=== PATIENT | female | born 1940 | race Caucasian/White ===

== ENCOUNTER 2016-07-24 07:30 | Inpatient (IN) | payer MEDICARE ==
--- NOTE | 2016-07-17 13:49 | HP ---
HISTORY AND PHYSICAL: DATE OF ADMISSION: 07/24/16 ATTENDING PHYSICIAN: Dr. Forrester (DICTATED BY ANGELITO GRIMES) PROCEDURE: Right total knee arthroplasty. CHIEF COMPLAINT: Right knee pain. HISTORY OF PRESENT ILLNESS: Ms. Dozier is a 76-year-old female with complaints of right knee pain secondary to advanced osteoarthritis. She has failed conservative management and has elected to proceed with a right total knee arthroplasty which is scheduled for 07/24/[address] Forrester. PAST MEDICAL HISTORY: 1. Hypertension. 2. Diabetes. 3. High cholesterol. 4. Sleep apnea. 5. Hypothyroidism. 6. AFib. PAST SURGICAL HISTORY: 1. Cardiac ablation. 2. Hysterectomy. 3. Partial parathyroidectomy. 4. Cystocele repair. 5. Lumbar diskectomy. CURRENT MEDICATIONS: 1. Magnesium oxide. 2. Voltaren gel. 3. Metformin 500 mg twice a day. 4. Nitrostat 0.4 mg. 5. Metoprolol 50 mg. 6. Cymbalta 60 mg once a day. 7. Hydrochlorothiazide 12.5 mg once a day. 8. Lovastatin 20 mg q.h.s. 9. Levothyroxine 50 mcg once a day. 10. Prilosec 20 mg once a day. 11. Meloxicam 15 mg once a day. 12. Amlodipine 2.5 mg once a day. 13. Aspirin 81 mg once a day. ALLERGIES: MORPHINE. FAMILY HISTORY: Diabetes and dementia. SOCIAL HISTORY: She is a 76-year-old female. Her recently . She does not smoke, use drugs or alcohol. REVIEW OF SYSTEMS: A complete 14-point review of systems was reviewed with the patient and was positive for diabetes and thyroid disease. She denies any anesthesia problems, history of seizure, stroke or DVT. PHYSICAL EXAMINATION GENERAL: She is well developed, well nourished in no acute distress. VITAL SIGNS: She stands 5 feet 6 inches tall, weighs 230 pounds. Blood pressure 144/80, heart rate 66. HEENT: Normocephalic, atraumatic. NECK: Supple. No palpable lymph nodes. Trachea is midline. PULMONARY: Lungs are clear to auscultation bilaterally. CARDIO: Regular rate and rhythm. ABDOMEN: Soft, nontender, nondistended. NEUROLOGIC: Alert and oriented x3. Cranial nerves II through XII are intact. MUSCULOSKELETAL: Right lower extremity, the skin is intact. She has some tenderness over the medial lateral joint line. Full range of motion. 2+ dorsalis pedis pulses, intact sensation. Lower extremity muscle group strengths are intact at 5/5. ASSESSMENT AND PLAN: Ms. Dozier is a 76-year-old female with complaints of right knee pain secondary to advanced osteoarthritis. She has failed conservative management and has elected to proceed with a right total knee arthroplasty which is scheduled for 07/24/[address] Forrester discussed the risks and benefits of the surgery at today's visit and all of her questions were answered. Coumadin, Percocet and Colace were sent to her pharmacy for postoperative pain control and DVT prophylaxis. She will see Dr. Forrester back 2 weeks after the surgery. ANGELITO GRIMES [id number]/[facility] #: [id number] ANTELMO
[~2016-07-24 07:30] MED LIST: Buffered Lidocaine 0.9% SYRIN* 5 ML/SYR SYRINGE INTRADERM ONE; Famotidine IV* 10 MG/ML 2 ML (20 mg) IV ONE
[2016-07-24] MEDS ORDERED: Famotidine IV* 10 MG/ML 2 ML (20 mg) ONE (11:03)
[2016-07-24] MEDS ORDERED: ceFAZolin 2 GM PREMIX(*) 2 GM/50 ML BAG IVPB ONE (11:03)
[2016-07-24] MEDS ORDERED: Buffered Lidocaine 0.9% SYRIN* 5 ML/SYR SYRINGE ONE (11:03)
[2016-07-24] MEDS ORDERED: Lidocaine 2% PF * 5 ML VIAL ONE (11:19)
[2016-07-24] MEDS ORDERED: Morphine PF AMP (0.5MG/ML)* 5 MG/10 ML AMP ONE (11:19)
[2016-07-24] MEDS ORDERED: Dexamethasone IV* 4 MG/ML 1 ML (4 MG) ONE (11:19)
[2016-07-24] MEDS ORDERED: Ketorolac INJ* 30 MG/ML 1 ML VIAL ONE (11:19)
[2016-07-24] MEDS ORDERED: fentaNYL* 50 MCG/ML 2 ML VIAL (100 MCG VIAL) ONE (11:19)
[2016-07-24] MEDS ORDERED: Propofol* 10 MG/ML 20 ML BTL IV PUSH ONE (11:19)
[2016-07-24] MEDS ORDERED: Midazolam* 1 MG/ML 5 ML VIAL (5 MG) ONE (11:19)
[2016-07-24] MEDS ORDERED: Ondansetron INJ* 2 MG/ML VIAL ONE (11:19)
[2016-07-24] MEDS ORDERED: KETAMINE HCL* 50 MG/ML 10 ML VIAL ONE (11:19)
[2016-07-24] MEDS ORDERED: Lidocaine 1% INJ* 10 MG/ML 30 ML SDV ONE (13:47)
[2016-07-24] MEDS ORDERED: Labetalol IV* 5 MG/ML 20 ML VIAL ONE (14:56)
[2016-07-24] MEDS ORDERED: oxyCODONE TAB* 5 MG TAB PO PRN (15:20)
[2016-07-24] MEDS ORDERED: HYDROmorphone* 1 MG/ML 1 ML SYR IV PRN (15:20)
[2016-07-24] MEDS ORDERED: Acetaminophen TAB* 325 MG PO PRN ×2 (15:20→16:43)
[2016-07-24] MEDS ORDERED: DiMENhydriNATE IV* 50 MG/ML VIAL IV PUSH PRN (15:20)
[2016-07-24] MEDS ORDERED: Gabapentin CAP(*) 300 MG PO ONE (15:21)
[2016-07-24] MEDS ORDERED: Nalbuphine* 20 MG/ML 1 ML VIAL IV PRN (15:23)
[2016-07-24] MEDS ORDERED: Ondansetron INJ* 2 MG/ML VIAL IV PRN (15:23)
[2016-07-24] MEDS ORDERED: oxyCODONE/Acetamin 5/325 MG* TAB PO PRN (15:23)
[2016-07-24] MEDS ORDERED: Naloxone* 0.4 MG/ML 1 ML VIAL IV PRN (15:23)
[2016-07-24] MEDS ORDERED: Magnesium Hydroxide LIQ* 30 ML UDC PO PRN (16:43)
[2016-07-24] MEDS ORDERED: Polyethylene Glycol 3350* 17 GM PACKET PO PRN (16:43)
[2016-07-24] MEDS ORDERED: diPHENhydraMINE IV* 50 MG/ML 1 ml VIAL (BENADRYL) IV PRN (16:43)
[2016-07-24] MEDS ORDERED: Bisacodyl SUPP* 10 MG SUPP PR PRN (16:43)
[2016-07-24] MEDS ORDERED: Nitroglycerin TAB 0.4 MG* 0.4 MG TAB PO PRN (16:49)
--- NOTE | 2016-07-24 17:25 | RAD ---
INDICATION: Right total knee arthroplasty COMPARISON: June 19, 2016 TECHNIQUE: Portable AP and crosstable lateral views were obtained. FINDINGS: There is right knee arthroplasty. The prosthesis appears well seated. There is a surgical drain and there is a cooling jacket in place. IMPRESSION: POSTOPERATIVE RIGHT KNEE ARTHROPLASTY.
[2016-07-24] MEDS ORDERED: diPHENhydraMINE IV* 50 MG/ML 1 ml VIAL (BENADRYL) ONE (18:00)
[2016-07-24] MEDS ORDERED: Gabapentin CAP(*) 300 MG ONE (18:01)
[2016-07-24] MEDS ORDERED: Dextrose 50% Syringe 50 ML* 25 GM/50 ML SYRINGE IV PUSH PRN (18:44)
--- NOTE | 2016-07-24 19:39 | CONS ---
CC: Dr. Carmen Pressley; Dr. Forrester * MEDICAL CONSULTATION: DATE OF CONSULT: 07/24/16 PRIMARY CARE PROVIDER: Dr. Carmen Pressley. REQUESTING PROVIDER: Dr. Dayna Forrester. CONSULTING PROVIDER: ANGELITO Castorena. SUPERVISING PHYSICIAN: Dr. Rosalio Mccarthy. CHIEF COMPLAINT: Status post right total knee arthroplasty. HISTORY OF PRESENT ILLNESS: This is a 76-year-old female with a history of hypertension, diabetes, hyperlipidemia, obstructive sleep apnea, hypothyroidism , SVT, status post ablation, and stage 3 chronic kidney disease who presented for elective right total knee arthroplasty with Dr. Forrester today. Dr. Forrester has requested medical consultation for co-management postoperatively. The patient was seen by both her primary care provider as well as primary twist packer, Dr. Davis, preoperatively. The patient last had a cardiac catheterization in 2012, nuclear stress test in 2015, and underwent cardiac ablation for SVT in March 2016. Her cardiac catheterization and nuclear stress test were within normal limits. The patient had been complaining of episodes of dizziness with previously normal workup and then SVT was noted on Holter monitor. She has been asymptomatic since her ablation procedure approximately 4 months ago. The remainder of her medical problems appear to be well controlled. She is without any recent acute medical illness. The patient states that she has no pain at the moment when examined postoperatively. She is feeling a little lightheaded and mildly nauseated. No chest pain, shortness of breath, or abdominal pain. PAST MEDICAL HISTORY: 1. Hypertension. 2. Ych-cibujck-ubbtpmdmv diabetes - well controlled, requiring metformin only. Last hemoglobin A1c measured at 6.2%. 3. Hyperlipidemia. 4. Obstructive sleep apnea, compliant with CPAP use. 5. Hypothyroidism. 6. History of SVT, status post ablation, March 2016. 7. Stage 3 chronic kidney disease. SURGICAL HISTORY: 1. Cardiac ablation, March 2016. 2. Hysterectomy. 3. Partial parathyroidectomy. 4. Cystocele repair. 5. Lumbar diskectomy. HOME MEDICATIONS: 1. Aspirin 81 mg p.o. daily. 2. Cymbalta 60 mg p.o. daily. 3. Diclofenac gel 1% applied topically 3 times daily as needed. 4. Diltiazem 120 mg p.o. daily. 5. Hydrochlorothiazide 12.5 mg p.o. daily. 6. Levothyroxine 50 mcg p.o. daily. 7. Lovastatin 20 mg p.o. at bedtime. 8. Magnesium oxide 400 mg p.o. daily. 9. Meloxicam 15 mg p.o. daily. 10. Metoprolol tartrate 12.5 in the morning and 25 in the evening. 11. Multivitamin 1 tablet p.o. daily. 12. Nitroglycerin 0.4 mg 1 tablet p.o. sublingual as needed for chest pain. 13. Omeprazole 20 mg p.o. daily. 14. Metformin 500 mg p.o. twice daily. SOCIAL HISTORY: The patient lives alone. Her daughter is a nurse that works at the hospital. She denies any smoking history and occasional alcohol consumption. REVIEW OF SYSTEMS: As noted above in HPI and otherwise reviewed and negative. PHYSICAL EXAMINATION: Most recent vitals: Temperature 97 degrees Fahrenheit, pulse 56 beats per minute, respiratory rate 16, oxygen saturation 95% on room air, blood pressure 115/64 mmHg. General: This is a very pleasant elderly female who appears younger than her stated age and is accompanied by her daughter and evaluated in the postop recovery area and does not appear to be in any acute distress. HEENT: Head is normocephalic, atraumatic. Mucous membranes are mildly dry. Cardiovascular: Heart has a regular rate and rhythm without murmurs, rubs, or gallops. Respiratory: Lungs are clear to auscultation without wheezes, crackles, or rhonchi. Abdomen: Abdomen is soft and nontender to palpation. Extremities: Postop dressing in place over the right knee. SCDs in place. No significant edema appreciated. Psych: The patient is alert and appropriately oriented. LABORATORY DATA: Reviewed labs completed preoperatively on 07/17/16 which showed a normal CBC including a hemoglobin of 12.5 g/dL. Comprehensive metabolic panel was reviewed which is remarkable only for creatinine of 1.19 and estimated GFR of 43, mild elevation of her AST and ALT. IMAGING: Reviewed preoperative EKG which demonstrated a normal sinus rhythm. ASSESSMENT AND PLAN: This is a 76-year-old female with hypertension; well controlled vow-sfxkrdj-bkjxtrbzg diabetes; hyperlipidemia; obstructive sleep apnea; hypothyroidism; chronic kidney disease; and history of supraventricular tachycardia, status post ablation who underwent elective right total knee arthroplasty by Dr. Forrester earlier today who has requested medical co-management from the hospitalist team. 1. Status post right total knee arthroplasty, status post operative management per Orthopedics including DVT prophylaxis, pain management, and discharge planning. 2. Hypertension - the patient is normotensive postoperatively. I shall hold her hydrochlorothiazide to avoid acute kidney injury with fluid shift. Otherwise, continue her metoprolol. 3. Hyperlipidemia - continue her statin. 4. Tbc-iispvqd-nlbeuyelf diabetes - we will hold her metformin at this time. Can likely resume on postop day 2 or 3. We will check mealtime fingersticks and cover with sliding scale Humalog as needed. 5. Obstructive sleep apnea - the patient brought her CPAP with her which will be ordered for use. 6. Hypothyroidism - continue her current levothyroxine dose. 7. Stage 3 chronic kidney disease - we will monitor closely and avoid nephrotoxic agents, especially NSAIDs. 8. History of supraventricular tachycardia, status post cardiac ablation, March 2016 - the patient has been asymptomatic since her procedure and does not require a postoperative telemetry monitoring unless symptoms develop. 9. Code status - the patient is full code. 10. DVT prophylaxis is per Orthopedic Surgery. The patient has been ordered Coumadin to start this evening being bridged with Lovenox. 11. Healthcare proxy is the patient's daughter. 12. Disposition: Hospitalist group will continue to follow along. The patient does desire discharge to subacute rehab when medically and surgically appropriate. Further disposition is per Orthopedic Surgery. ANGELITO CASTORENA [id number]/[facility] #: [id number] ANTELMO
[2016-07-24] MEDS ORDERED: Warfarin TAB(*) 6 MG PO ONE (20:00)
[2016-07-24] MEDS: ceFAZolin VIAL(*) 1 GM in NS 0.9% 50 ML* 50 ML IVPB SCH (20:31)
[2016-07-24] MEDS: Ibuprofen TAB* 600 MG PO SCH (20:31)
[2016-07-24] MEDS: Atorvastatin* 10 MG TAB PO SCH (20:32)
[2016-07-24] MEDS: Docusate CAP* 100 MG PO SCH (20:32)
[2016-07-24] MEDS: Metoprolol Tartrate TAB* 25 MG PO SCH (20:47)
[2016-07-24] MEDS ORDERED: Gabapentin CAP(*) 100 MG PO ONE (22:00)
[2016-07-25] MEDS: ceFAZolin VIAL(*) 1 GM in NS 0.9% 50 ML* 50 ML IVPB SCH ×2 (03:33→11:47)
[2016-07-25] MEDS: Ibuprofen TAB* 600 MG PO SCH ×3 (03:33→14:38)
[2016-07-25] MEDS: Levothyroxine TAB* 50 MCG TAB PO SCH (05:56)
[2016-07-25] MEDS ORDERED: Ondansetron INJ* 2 MG/ML VIAL IV PRN (06:00)
[2016-07-25] MEDS ORDERED: Ondansetron TAB* 4 MG PO PRN (06:00)
[2016-07-25 06:49] LABS: Hematocrit 28 % (35-47); Hemoglobin 8.9 g/dl (12.0-16.0)
[2016-07-25 07:04] LABS: BUN/Creatinine Ratio 21.1 (8-20); Calcium 8.4 mg/dL (8.6-10.3); EGFR African American 62.4 (>60); EGFR Non-African American 48.5 (>60); Potassium 4.6 mmol/L (3.5-5.0)
[2016-07-25] MEDS: Docusate CAP* 100 MG PO SCH ×2 (08:11→20:28)
[2016-07-25] MEDS: Omeprazole CAP* 20 MG PO SCH (08:12)
[2016-07-25] MEDS: Insulin LISPRO* 1 UNITS UNIT SUBCUT SCH ×3 (08:12→17:20)
[2016-07-25] MEDS: Magnesium Oxide TAB* 400 MG PO SCH (08:12)
[2016-07-25] MEDS: Diltiazem CD CAP* 120 MG PO SCH (08:12)
[2016-07-25] MEDS: DULoxetine DR CAP* 30 MG CAP.DR PO SCH (08:12)
[2016-07-25] MEDS: Metoprolol Tartrate TAB* 25 MG PO SCH ×2 (08:20→17:19)
[2016-07-25] MEDS ORDERED: Hydrochlorothiazide TAB* 25 MG PO SCH (09:00)
--- NOTE | 2016-07-25 09:22 | OP ---
DATE OF OPERATION: 07/24/16 - ROOM #347 DATE OF : 36 SURGEON: Dayna Forrester MD CREAM HAULER: ANGELITO Ramirez. Ms. Fowler did help throughout the procedure with preparation of leg, wound retraction, manipulation of the knee, and wound closure. ANESTHESIOLOGIST: Dr. Jaramillo ANESTHESIA: Spinal with adductor nerve block. PRE-OP DIAGNOSIS: Severe end-stage osteoarthritis of the right knee joint. POST-OP DIAGNOSIS: Severe end-stage osteoarthritis of the right knee joint. OPERATIVE PROCEDURE: Right total knee arthroplasty. TOURNIQUET TIME: 53 minutes. EBL: 350 cc. COMPLICATIONS: None. SPECIMENS: Bone and cartilage from the right knee joint sent to pathology. HARDWARE USED: This is a cemented [employer] total knee hardware. Two packages of Simplex bone cement were used. For the femur, a size 5 narrow right femoral component, for the tibia a size 4 right tibial base plate. For the insert an 11 mm posterior stabilized size 3-4 articular insert, for the patella a 32 mm 3- peg all poly patella. BRIEF HISTORY/INDICATIONS: Ms. Dozier is a 76-year-old female with years of increasingly severe right knee pain. She failed conservative treatment with antiinflammatory pain medication, physical therapy, brace wear, and intraarticular injects. Due to continued pain and decreased quality of life she elected to undergo right total knee arthroplasty. Radiographs confirmed bone-bone arthritis. Informed consent was obtained from the patient. She understood the risks of the procedure included but were not limited to bleeding , infection, damage to nearby structures, continued pain, need for further surgery, intraoperative fracture, nerve palsy, hardware failure or loosening, knee stiffness, loss of motion, stroke, heart attack, blood clot, and . She wished to proceed. INTRAOPERATIVE FINDINGS: Intraoperatively, the patient had advanced degeneration of the cartilage in a tricompartmental fashion. She had a 15- degree flexion contracture to begin with and 120 degrees of flexion. Intraoperatively, we obtained full extension to 130 degrees of flexion. DESCRIPTION OF PROCEDURE: Ms. Dozier was identified in the preanesthesia unit. Her right lower extremity was marked as the correct operative side. Informed consent was signed and placed in the chart. The patient was taken to the operating room and placed under spinal anesthesia with an adductor nerve block. Gama catheter was placed. Tourniquet was placed on the right thigh. Right lower extremity was prepped and draped in the usual sterile fashion. Preop time-out was made to correctly identify the patient's side and site. Appropriate perioperative antibiotics were given within 1 hour of incision. Tourniquet time was 53 minutes. The tourniquet was inflated. A 14 cm midline incision was made with a 10 blade and carried down to the extensor mechanism. A new 10 blade was used to make a standard medial parapatellar arthrotomy. Patella was subluxed laterally. Electro-cautery was used to subperiosteally elevate soft tissue off the superomedial tibia to the mid sagittal plane. There was a significant amount of medial osteocytes and these were removed with a rongeur. The knee was flexed up. The anterior horn of the lateral meniscus and ACL were sharply released. A drill was used to enter the distal femur. Intramedullary distal femoral cutting guide was pinned into position. 9 mm of distal femur bone was carefully removed with an oscillating saw. The external rotation guide was pinned on the distal femur. The femur was sized to size 5. Size 5 multi-cutting jig was then pinned on the distal femur. Oscillating saw was used to make the appropriate chamfer cuts. Any bony fragments were carefully removed. PCL was completely released. The tibia was subluxed anteriorly. Extramedullary tibial cutting guide was pinned on the proximal tibia. Oscillating saw was used to make a proximal tibial cut perpendicular to the mechanical axis of the tibia. The bone was carefully removed. Knee was brought into full extension. There was some tightness medially. Electro- cautery was used for a conservative soft tissue release. Medial and lateral ligamentous balancing were now equal. Flexion and extension gaps were equal. The knee was flexed up. engineering manager was placed both medially and laterally. Any remaining meniscus was carefully removed using electrocautery. Curved osteotome was used to remove any posterior osteophytes. A size 5 right narrow femoral component trial was impacted on to the distal femur. This had excellent fit. The box for the posterior stabilized implant was prepared using a reamer and box cut osteotome. Size 4 tibial tray trial with a 9 mm insert trial were placed and the knee was taken through a range of motion. The knee had full extension to a 130 degrees of flexion with good patellofemoral tracking. Next, the patella was everted. A 9 mm of patellar bony cartilage was carefully removed using an oscillating saw. Patella was sized to a size 32. Three peg holes were drilled through the size 32 guide. 32 trial patella was placed. There was good patellofemoral tracking. All trials were carefully removed. Tibia was subluxed anteriorly and sized to a size 4. Proximal tibia was prepared using a size 4 keel punch. All bony cut surfaces were copiously irrigated with sterile saline and dried. Final implants were cemented into place starting with the tibia, followed by the femur and last the patella. A 11 mm insert trial was placed and the knee was brought out into full extension. The cement was allowed to fully cure. Tourniquet was turned down at 53 minutes. The knee was copiously irrigated with sterile saline. Once the cement was fully cured, the insert trial was removed. Any excess cement was checked and removed. Electrocautery was used to obtain meticulous hemostasis. Final implant chosen was a 11 mm posterior stabilized articular insert. This was locked into position on the tibial tray. Stability of the insert was checked and rechecked and noted to be stable. The knee was copiously irrigated with sterile saline. The extensor mechanism was closed over a medium Hemovac drain using interrupted #1 Vicryl. The rest of the incision was closed in a layered fashion using 0 and 2-0 Vicryl. Skin was closed using 3-0 nylon suture. A Xeroform, 4x4's, and Webril were used to cover the incision. Terrence wrap and cold pack were placed over this. The patient's anesthesia was reversed without difficulty and she was taken to the PACU in stable condition. Intended weightbearing will be weightbearing as tolerated. Intended DVT prophylaxis will be Coumadin with a Lovenox bridge. [id number]/[facility] #: [id number] [facility] SYSTEM[facility]ush
[2016-07-25] MEDS: oxyCODONE/Acetamin 5/325 MG* TAB PO PRN ×5 (09:27→23:52)
--- NOTE | 2016-07-25 09:55 | PN ---
Progress Note - Progress Note SOAP: Subjective: []Patient seen OOB in chair. Denies SOB, CP, or dizziness. Walked out to hallway 1st time OOB with PT this am. She lives alone, so she would like to be evaluated for PMRU rehab prior to return home. Objective: [] Vital Signs Temp 97.4 F 07/25/16 07:30 Pulse 51 07/25/16 07:30 Resp 16 07/25/16 09:27 BP 113/56 07/25/16 07:30 Pulse Ox 99 07/25/16 07:30 Intake & Output 07/24/16 07/25/16 07/25/16 18:59 06:59 18:59 Intake Total 2350 1860 1578 Output Total 800 1025 150 Balance 3845 505 6978 Weight 224 lb Intake: IV Fluids 2350 990 1018 LR 990 1018 NS 50ML, Cefazolin 2G 50 lr 2300 IVPB 110 ABX - CEFAZOLIN 110 Oral 870 450 Output: Gama 500 1025 150 Estimated Blood Loss 300 Laboratory Results - last 24 hr 07/24/16 07/25/16 07/25/16 11:20 06:31 06:31 Hgb 8.9 L Hct 28 L INR (Anticoag Therapy) 1.04 Sodium Potassium Chloride Carbon Dioxide Anion Gap BUN Creatinine Est GFR ( Amer) Est GFR (Non-Af Amer) BUN/Creatinine Ratio Glucose POC Glucose (mg/dL) 111 H Calcium 07/25/16 06:31 Hgb Hct INR (Anticoag Therapy) Sodium 133 Potassium 4.6 Chloride 101 Carbon Dioxide 27 Anion Gap 5 BUN 23 Creatinine 1.09 H Est GFR ( Amer) 62.4 Est GFR (Non-Af Amer) 48.5 BUN/Creatinine Ratio 21.1 H Glucose 138 H POC Glucose (mg/dL) Calcium 8.4 L Right knee drain was discontinued this am by Dr. Forrester, no complications. Dressing is dry and intact calf NT and soft +DF/PF right ankle sensation intact Assessment: []s/p Right total knee arthroplasty POD #1 Plan: []PT/OT WBAT RLE Coumadin with Lovenox bridge- 8mg today PMRU consult placed
[2016-07-25] MEDS: Enoxaparin(*) 40 MG/0.4 ML SYR SUBCUT SCH (13:04)
--- NOTE | 2016-07-25 14:43 | PN ---
Subjective Date of Service: 07/25/16 Interval History: This is a 76 yo female POD #1 s/p R TKA. She reports moderate pain, mild nausea. Eating and drinking well. Able to ambulate to the bathroom. No CP, SOB, abd pain. No vomiting. Objective Active Medications: Acetaminophen (Tylenol Tab*) 650 mg PO Q4H PRN PRN Reason: PAIN OR TEMPERATURE Atorvastatin Calcium (Lipitor*) 5 mg PO BEDTIME AHLLEY PRN Reason: Protocol Last Admin: 07/24/16 20:32 Dose: 5 mg Bisacodyl (Dulcolax Supp*) 10 mg ND DAILY PRN PRN Reason: constipation Dextrose (D50w Syringe 50 Ml*) 12.5 gm IV PUSH .FOR FS < 60 - SS PRN PRN Reason: FS < 60 Diltiazem HCl (Cardizem Cd Cap*) 120 mg PO QAM [facility] Last Admin: 07/25/16 08:12 Dose: 120 mg Diphenhydramine HCl (Benadryl Iv*) 12.5 mg IV Q6H PRN PRN Reason: PRURITIS Last Admin: 07/24/16 18:03 Dose: 12.5 mg Docusate Sodium (Colace Cap*) 100 mg PO BID [facility] Last Admin: 07/25/16 08:11 Dose: 100 mg Duloxetine HCl (Cymbalta Cap*) 60 mg PO QAM [facility] Last Admin: 07/25/16 08:12 Dose: 60 mg Enoxaparin Sodium (Lovenox(*)) 40 mg SUBCUT Q24H [facility] Last Admin: 07/25/16 13:04 Dose: 40 mg Hydromorphone HCl (Dilaudid Iv*) 1 mg IV SLOW PU Q4H PRN PRN Reason: PAIN Lactated Ringer's (Lactated Ringers 1000 Ml Bag*) 1,000 mls @ 100 mls/hr IV PER RATE [facility] Last Admin: 07/25/16 07:13 Dose: 100 mls/hr Insulin Human Lispro (Humalog*) 0 units SUBCUT AC [facility] PRN Reason: Protocol Last Admin: 07/25/16 13:03 Dose: 2 unit Lactulose (Lactulose*) 30 ml PO Q6H PRN PRN Reason: constipation Levothyroxine Sodium (Synthroid Tab*) 50 mcg PO 0600 [facility] Last Admin: 07/25/16 05:56 Dose: 50 mcg Magnesium Hydroxide (Milk Of Magnesia Liq*) 30 ml PO Q6H PRN PRN Reason: constipation Magnesium Oxide (Magox 400 Tab*) [address] [facility] Last Admin: 07/25/16 08:12 Dose: 400 mg Metoprolol Tartrate (Lopressor Tab*) 12.[address] [facility] Last Admin: 07/25/16 08:20 Dose: Not Given Metoprolol Tartrate (Lopressor Tab*) 25 mg PO QPM [facility] Last Admin: 07/24/16 20:47 Dose: 25 mg Nitroglycerin (Nitroglycerin Tab 0.4 Mg*) 0.4 mg PO Q5M PRN PRN Reason: PAIN - CHEST Omeprazole (Prilosec Cap*) [address] [facility] Last Admin: 07/25/16 08:12 Dose: 20 mg Ondansetron HCl (Zofran Inj*) 4 mg IV Q6H PRN PRN Reason: nausea Ondansetron HCl (Zofran Tab*) 4 mg PO Q6H PRN PRN Reason: NAUSEA Oxycodone HCl (Roxycodone Tab*) 10 mg PO Q4H PRN PRN Reason: SEVERE PAIN Oxycodone/Acetaminophen (Percocet 5/325 Tab*) 1 tab PO Q3H PRN PRN Reason: PAIN - MODERATE Last Admin: 07/25/16 09:27 Dose: 1 tab Oxycodone/Acetaminophen (Percocet 5/325 Tab*) 2 tab PO Q3H PRN PRN Reason: PAIN - MODERATE Last Admin: 07/25/16 13:02 Dose: 2 tab Polyethylene Glycol/Electrolytes (Miralax*) 17 gm PO DAILY PRN PRN Reason: Constipation Warfarin Sodium (Coumadin Tab(*)) 8 mg PO ONCE@1700 ONE PRN Reason: Protocol Stop: 07/25/16 17:01 Vital Signs: Temp Pulse Resp BP Pulse Ox 97.4 F 70 16 131/63 99 07/25/16 11:50 07/25/16 11:50 07/25/16 13:02 07/25/16 11:50 07/25/16 11:50 Appearance: Well appearing elderly female who appears younger than stated age in NAD Respiratory: Symmetrical Chest Expansion and Respiratory Effort, Clear to Auscultation Cardiovascular: NL Sounds; No Murmurs; No JVD, RRR Abdominal: NL Sounds; No Tenderness; No Distention Lymphatic: No Cervical Adenopathy Extremities: No Edema Skin: No Rash or Ulcers Result Diagrams: 07/25/16 06:31 07/25/16 06:31 Assess/Plan/Problems-Billing Assessment: This is a 76 yo female with HTN, DM, BRANDEE, HLD, hypothyroidism, CKD and SVT s/p ablation who is now s/p elective R TKA by Dr Forrester 07/25/16. Hospitalist group has been asked to consult for co-management. - Patient Problems (1) Status post total knee replacement Comment: POD #1 management per ortho (2) HTN (hypertension) Comment: Normotensive Cont metoprolol and diltiazem Resume HCTZ tomorrow am (3) BRANDEE (obstructive sleep apnea) Comment: Complaint with CPAP (4) CKD (chronic kidney disease), stage III Comment: Stable Avoid nephrotoxic agents (5) Diabetes Comment: Metformin held at this time Cover with SS Humalog HgbA1c 6.2% (6) HLD (hyperlipidemia) (7) Hypothyroidism Comment: Cont levothyroxine (8) Full code status (9) DVT prophylaxis Comment: Coumadin bridged with Lovenox per ortho Status and Disposition: Dispo per ortho. Patient desires [facility]. Hospitalist group will cont to follow
[2016-07-25] MEDS ORDERED: Warfarin TAB(*) 4 MG PO ONE (17:00)
[2016-07-25] MEDS: Atorvastatin* 10 MG TAB PO SCH (20:28)
[2016-07-25] MEDS: HYDROmorphone* 1 MG/ML 1 ML SYR IV SLOW PU PRN (22:54)
[2016-07-26] MEDS: oxyCODONE TAB* 5 MG TAB PO PRN ×2 (03:08→08:55)
[2016-07-26] MEDS: Levothyroxine TAB* 50 MCG TAB PO SCH (05:49)
[2016-07-26] MEDS: oxyCODONE/Acetamin 5/325 MG* TAB PO PRN ×3 (05:50→20:42)
[2016-07-26 06:06] LABS: Hematocrit 27 % (35-47); Hemoglobin 8.7 g/dl (12.0-16.0)
[2016-07-26] MEDS: Insulin LISPRO* 1 UNITS UNIT SUBCUT SCH ×3 (08:07→17:55)
[2016-07-26] MEDS: Diltiazem CD CAP* 120 MG PO SCH (08:09)
[2016-07-26] MEDS: DULoxetine DR CAP* 30 MG CAP.DR PO SCH (08:10)
[2016-07-26] MEDS: Docusate CAP* 100 MG PO SCH ×2 (08:10→20:41)
[2016-07-26] MEDS: Omeprazole CAP* 20 MG PO SCH (08:10)
[2016-07-26] MEDS: Magnesium Oxide TAB* 400 MG PO SCH (08:11)
[2016-07-26] MEDS: Hydrochlorothiazide TAB* 25 MG PO SCH (08:11)
[2016-07-26] MEDS: Metoprolol Tartrate TAB* 25 MG PO SCH ×2 (08:11→17:55)
--- NOTE | 2016-07-26 09:36 | PN ---
Progress Note - Progress Note SOAP: Subjective: []Patient seen OOB in chair. Having quite a bit of knee pain and feels nauseated because of that. She is unsure if she will be able to go home tomorrow with her daughter's help or if she will need SNF rehab. Objective: [] Vital Signs Temp 97.7 F 07/26/16 07:39 Pulse 71 07/26/16 07:39 Resp 20 07/26/16 08:55 BP 159/71 07/26/16 07:39 Pulse Ox 100 07/26/16 08:00 Intake & Output 07/25/16 07/26/16 07/26/16 18:59 06:59 18:59 Intake Total 4737 1400 240 Output Total 1450 1300 100 Balance 3287 100 140 Intake: IV Fluids 1470 LR 1470 IVPB 165 ABX - CEFAZOLIN 165 Oral 3102 1400 240 Output: Urine 1300 1300 100 Gama 150 Other: Estimated Void Medium # Bowel Movements 0 0 # Voids 1 Laboratory Results - last 24 hr 07/25/16 07/25/16 07/26/16 11:45 16:46 05:35 Hgb 8.7 L Hct 27 L INR (Anticoag Therapy) POC Glucose (mg/dL) 158 H 144 H 07/26/16 07/26/16 05:35 07:21 Hgb Hct INR (Anticoag Therapy) 1.40 H POC Glucose (mg/dL) 150 H Right knee dressing changed this am by Dr. Forrester and reported to be benign calf non tender and soft +DF/PF right ankle Assessment: []s/p Right total knee arthroplasty POD #2 Plan: []PT/OT WBAT Zofran given with pain medications Coumadin with Lovenox bridge- 6 mg today Home vs SNF rehab when goals met and medically stable
[2016-07-26] MEDS: Enoxaparin(*) 40 MG/0.4 ML SYR SUBCUT SCH (12:23)
[2016-07-26] MEDS: HYDROmorphone* 1 MG/ML 1 ML SYR IV SLOW PU PRN (15:17)
--- NOTE | 2016-07-26 16:34 | PN ---
Subjective Date of Service: 07/26/16 Interval History: Patient is struggling with pain control and associated nausea today. Denies CP , SOB, abd pain. Objective Active Medications: Acetaminophen (Tylenol Tab*) 650 mg PO Q4H PRN PRN Reason: PAIN OR TEMPERATURE Atorvastatin Calcium (Lipitor*) 5 mg PO BEDTIME HALLEY PRN Reason: Protocol Last Admin: 07/25/16 20:28 Dose: 5 mg Bisacodyl (Dulcolax Supp*) 10 mg WA DAILY PRN PRN Reason: constipation Dextrose (D50w Syringe 50 Ml*) 12.5 gm IV PUSH .FOR FS < 60 - SS PRN PRN Reason: FS < 60 Diltiazem HCl (Cardizem Cd Cap*) 120 mg PO QAM [facility] Last Admin: 07/26/16 08:09 Dose: 120 mg Diphenhydramine HCl (Benadryl Iv*) 12.5 mg IV Q6H PRN PRN Reason: PRURITIS Last Admin: 07/24/16 18:03 Dose: 12.5 mg Docusate Sodium (Colace Cap*) 100 mg PO BID [facility] Last Admin: 07/26/16 08:10 Dose: 100 mg Duloxetine HCl (Cymbalta Cap*) 60 mg PO QAM [facility] Last Admin: 07/26/16 08:10 Dose: 60 mg Enoxaparin Sodium (Lovenox(*)) 40 mg SUBCUT Q24H [facility] Last Admin: 07/26/16 12:23 Dose: 40 mg Hydrochlorothiazide (Hydrodiuril Tab*) 12.5 mg PO DAILY [facility] Last Admin: 07/26/16 08:11 Dose: 12.5 mg Hydromorphone HCl (Dilaudid Iv*) 1 mg IV SLOW PU Q4H PRN PRN Reason: PAIN Last Admin: 07/26/16 15:17 Dose: 1 mg Lactated Ringer's (Lactated Ringers 1000 Ml Bag*) 1,000 mls @ 100 mls/hr IV PER RATE [facility] Last Admin: 07/25/16 07:13 Dose: 100 mls/hr Insulin Human Lispro (Humalog*) 0 units SUBCUT AC [facility] PRN Reason: Protocol Last Admin: 07/26/16 12:22 Dose: 2 unit Lactulose (Lactulose*) 30 ml PO Q6H PRN PRN Reason: constipation Levothyroxine Sodium (Synthroid Tab*) 50 mcg PO 0600 [facility] Last Admin: 07/26/16 05:49 Dose: 50 mcg Magnesium Hydroxide (Milk Of Magnesia Liq*) 30 ml PO Q6H PRN PRN Reason: constipation Last Admin: 07/26/16 08:10 Dose: 30 ml Magnesium Oxide (Magox 400 Tab*) 400 mg PO [facility] Last Admin: 07/26/16 08:11 Dose: 400 mg Metoprolol Tartrate (Lopressor Tab*) [facility] [place] Admin: 07/26/16 08:11 Dose: 12.5 mg Metoprolol Tartrate (Lopressor Tab*) 25 mg PO QPM [facility] Last Admin: 07/25/16 17:19 Dose: 25 mg Nitroglycerin (Nitroglycerin Tab 0.4 Mg*) 0.4 mg PO Q5M PRN PRN Reason: PAIN - CHEST Omeprazole (Prilosec Cap*) 20 mg PO [facility] Last Admin: 07/26/16 08:10 Dose: 20 mg Ondansetron HCl (Zofran Inj*) 4 mg IV Q6H PRN PRN Reason: nausea Last Admin: 07/26/16 08:59 Dose: 4 mg Ondansetron HCl (Zofran Tab*) 4 mg PO Q6H PRN PRN Reason: NAUSEA Oxycodone HCl (Roxycodone Tab*) 10 mg PO Q4H PRN PRN Reason: SEVERE PAIN Last Admin: 07/26/16 08:55 Dose: 10 mg Oxycodone/Acetaminophen (Percocet 5/325 Tab*) 1 tab PO Q3H PRN PRN Reason: PAIN - MODERATE Last Admin: 07/25/16 09:27 Dose: 1 tab Oxycodone/Acetaminophen (Percocet 5/325 Tab*) 2 tab PO Q3H PRN PRN Reason: PAIN - MODERATE Last Admin: 07/26/16 12:05 Dose: 2 tab Pharmacy Profile Note (Coumadin Daily Reminder*) 1 note FOLLOW UP 1700 [facility] Last Admin: 07/25/16 17:22 Dose: 1 note Polyethylene Glycol/Electrolytes (Miralax*) 17 gm PO DAILY PRN PRN Reason: Constipation Warfarin Sodium (Coumadin Tab(*)) 6 mg PO ONCE@1700 ONE PRN Reason: Protocol Stop: 07/26/16 17:01 Vital Signs: Temp Pulse Resp BP Pulse Ox 97.9 F 66 14 158/72 94 07/26/16 15:55 07/26/16 15:55 07/26/16 15:55 07/26/16 15:55 07/26/16 15:55 Appearance: Fatigued appearing elderly female in NAD, accompanied by her daughter Respiratory: Symmetrical Chest Expansion and Respiratory Effort, Clear to Auscultation Cardiovascular: NL Sounds; No Murmurs; No JVD, RRR Abdominal: NL Sounds; No Tenderness; No Distention Extremities: No Edema Skin: No Rash or Ulcers Neurological: Alert and Oriented x 3 Result Diagrams: 07/26/16 05:35 07/25/16 06:31 Assess/Plan/Problems-Billing Assessment: This is a 76 yo female with HTN, DM, BRANDEE, HLD, hypothyroidism, CKD and SVT s/p ablation who is now s/p elective R TKA by Dr Forrester 07/25/16. Hospitalist group has been asked to consult for co-management. - Patient Problems (1) Status post total knee replacement Comment: POD #2 management per ortho (2) HTN (hypertension) Comment: Normotensive Cont metoprolol, diltiazem, HCTZ (3) BRANDEE (obstructive sleep apnea) Comment: Complaint with CPAP (4) CKD (chronic kidney disease), stage III Comment: Stable Avoid nephrotoxic agents (5) Diabetes Comment: Metformin held at this time Cover with SS Humalog HgbA1c 6.2% (6) HLD (hyperlipidemia) (7) Hypothyroidism Comment: Cont levothyroxine (8) Full code status (9) DVT prophylaxis Comment: Coumadin bridged with Lovenox per ortho Status and Disposition: Dispo per ortho. Patient desires [facility]. Hospitalist group will cont to follow
[2016-07-26] MEDS ORDERED: Warfarin TAB(*) 6 MG PO ONE (17:00)
[2016-07-26] MEDS: Atorvastatin* 10 MG TAB PO SCH (20:41)
[2016-07-27] MEDS: oxyCODONE/Acetamin 5/325 MG* TAB PO PRN ×4 (00:26→11:57)
[2016-07-27] MEDS: Levothyroxine TAB* 50 MCG TAB PO SCH (05:10)
[2016-07-27 06:53] LABS: Hematocrit 28 % (35-47); Hemoglobin 8.8 g/dl (12.0-16.0)
--- NOTE | 2016-07-27 07:39 | PN ---
Progress Note - Progress Note SOAP: Subjective: Pt. is alert, nad. Plan to go to SNF today. Objective: RLE - dressing c/d/i. distally min edema, nvi. Vital Signs: Temp Pulse Resp BP Pulse Ox 98.0 F 68 16 129/67 97 07/27/16 03:38 07/27/16 03:38 07/27/16 05:03 07/27/16 03:38 07/27/16 03:38 Laboratory Results - last 24 hr 07/26/16 07/26/16 07/27/16 12:11 17:03 06:28 Hgb 8.8 L Hct 28 L INR (Anticoag Therapy) POC Glucose (mg/dL) 157 H 151 H 07/27/16 06:28 Hgb Hct INR (Anticoag Therapy) 2.57 H POC Glucose (mg/dL) Assessment: 76 yo F pod 3 s/p RTKA Plan: wbat rle pt/ot d/c lovenox hold coumadin tonight and recheck inr tomorrow plan d/c to snf today.
[2016-07-27] MEDS: Insulin LISPRO* 1 UNITS UNIT SUBCUT SCH ×2 (08:36→11:58)
[2016-07-27] MEDS: Omeprazole CAP* 20 MG PO SCH (08:38)
[2016-07-27] MEDS: Docusate CAP* 100 MG PO SCH (08:38)
[2016-07-27] MEDS: Metoprolol Tartrate TAB* 25 MG PO SCH (08:38)
[2016-07-27] MEDS: Hydrochlorothiazide TAB* 25 MG PO SCH (08:39)
[2016-07-27] MEDS: Diltiazem CD CAP* 120 MG PO SCH (08:39)
[2016-07-27] MEDS: DULoxetine DR CAP* 30 MG CAP.DR PO SCH (08:39)
[2016-07-27] MEDS: Magnesium Oxide TAB* 400 MG PO SCH (08:40)
--- NOTE | 2016-07-27 11:44 | DS ---
CC: [facility]* DATE OF ADMISSION: 07/24/2016. DATE OF DISCHARGE: 07/27/2016. ATTENDING PHYSICIAN: Dr. Dayna Forrester. ADMISSION DIAGNOSIS: Severe end-stage osteoarthritis right knee joint. DISCHARGE DIAGNOSIS: Severe end-stage osteoarthritis right knee joint. SURGERY PERFORMED: Right total knee arthroplasty. HOSPITAL COURSE: The patient is a 76-year-old female with increasingly right severe knee pain. She failed conservative management with anti-inflammatory pain medications, physical therapy, brace wear, interarticular injections. Due to the fact she continued to have decreased quality of life and increased pain, she elected to proceed with the aforementioned procedure and was taken to the operating room under the care of Dr. Dayna Forrester on the date of 07/24/2016. She tolerated the procedure well and left the operating room in stable condition. Postoperative day number two, she had difficulty managing her pain, but by postoperative day three, she was improved. She did progress satisfactorily, albeit slowly with her physical therapy and occupational therapy goals. Due to the fact that she lives alone, she felt it would be safer for her to be discharged to a long term facility for additional rehabilitation prior to returning independently at home. She was found to be an acceptable candidate for the rehabilitation program at [facility] and was stable medically and orthopedically for discharge to the facility on 07/27/2016. CONDITION ON DISCHARGE: The patient's right knee is healing without evidence of infection. Her calf is soft and nontender. Her neurovascular status is grossly intact. Her vital signs are stable. She is afebrile. Her INR is 2.57 today. We will hold Coumadin today, 07/27/2016, and give her 2 mg of Coumadin 07/28/2016; 2 mg 07/29/2016; and 2 mg 07/30/2016. She will have a repeat INR drawn on with subsequent dosages to follow. She may shower, but avoid submerging the knee incision in bath water. She will continue with her PT/OT exercises, bearing weight as tolerated. We recommend a follow-up with Dr. Forrester in roughly 10 to 14 days as scheduled. If there are any concerns during her stay at [facility], the office should be contacted prior to her scheduled appointment with Dr. Forrester. ANGELITO LEES [id number]/[facility] #: [id number] [facility] HOS[facility]ITALKush
[2016-07-27 12:00] VITALS: BP 156/70
--- NOTE | 2016-07-27 14:18 | PN ---
Hospitalist Progress Note Patient was discharged by ortho earlier today to [facility] for rehab services. Nursing notes, vitals and labs reviewed. Recommend resuming home medications at discharge. No acute medical concerns during hospital stay. Exam not performed today. Vital Signs: Temp Pulse Resp BP Pulse Ox 97.3 F 70 20 156/70 96 07/27/16 11:55 07/27/16 11:55 07/27/16 11:57 07/27/16 11:55 07/27/16 11:55
== END 2016-07-27 13:00 | DRG 470 ==
LOC: AA 10:57 → SSU 16:43
PROVIDERS: ADMIT Orthopaedic Surgery Adult Reconstructive Orthopaedic Surgery; ATTEND Orthopaedic Surgery Adult Reconstructive Orthopaedic Surgery
PROC: 0SRC0J9 Replacement of Right Knee Joint with Synthetic Substitute, Cemented, Open Approach (ICD-10-PCS; principal; 2016-07-24 13:00)
DX: M17.11 Unilateral primary osteoarthritis, right knee (principal); E11.22 Type 2 diabetes mellitus with diabetic chronic kidney disease; I48.91 Unspecified atrial fibrillation; N18.3 Chronic kidney disease, stage 3 (moderate); I12.9 Hypertensive chronic kidney disease with stage 1 through stage 4 chronic kidney disease, or unspecified chronic kidney disease; G43.909 Migraine, unspecified, not intractable, without status migrainosus; F32.9 Major depressive disorder, single episode, unspecified; E78.00 Pure hypercholesterolemia, unspecified; E03.9 Hypothyroidism, unspecified; E78.5 Hyperlipidemia, unspecified; G47.33 Obstructive sleep apnea (adult) (pediatric); M25.761 Osteophyte, right knee; R11.0 Nausea; Z90.710 Acquired absence of both cervix and uterus; Z88.5 Allergy status to narcotic agent; Z83.3 Family history of diabetes mellitus; Z82.0 Family history of epilepsy and other diseases of the nervous system; Z98.49 Cataract extraction status, unspecified eye
CPT/HCPCS: 36415; 80048; 85014; 85018; 85610; A9270-GY; C1776; J0690; J1100; J1170; J1200; J1650; J1885; J2001; J2250; J2405; J2704; J3010

== ENCOUNTER 2016-09-06 16:03 | Emergency (ER) | payer MEDICARE ==
[2016-09-06 17:35] LABS: Albumin 3.9 g/dL (3.2-5.2); BUN/Creatinine Ratio 13.6 (8-20); EGFR African American 66.6 (>60); EGFR Non-African American 51.8 (>60); Potassium 4.1 mmol/L (3.5-5.0); Total Bilirubin 0.3 mg/dL (0.2-1.0); Total Protein 6.9 g/dL (6.4-8.9)
[2016-09-06 17:36] LABS: Add Diff/Slide Review? Manual Diff Added; Comments Flag Yes; Hematocrit 32 % (35-47); Hemoglobin 9.9 g/dl (12.0-16.0); Mean Corpuscular HGB Conc 31 g/dl (31-36); Mean Corpuscular Hemoglobin 23 pg (27-31); Mean Corpuscular Volume 74 fL (80-97); Red Blood Count 4.29 10^6/ul (4.0-5.4); Red Cell Distribution Width 16 % (10.5-15)
[2016-09-06 17:37] LABS: Troponin I 0.01 ng/mL (<0.04)
[2016-09-06] MEDS ORDERED: Iodixanol* (CONTRAST) 320 MG/ML 100 ML SDV IV ONE (17:53)
[2016-09-06 17:57] LABS: White Blood Count 7.7 10^3/ul (3.5-10.8)
[2016-09-06 17:58] LABS: Mean Platelet Volume 8 um3 (7.4-10.4)
[2016-09-06 18:01] LABS: Eosinophils % 1 % (0-6); Immature Granulocytes 1 % (0-9); Microcytosis 1+; Neutrophil % 78 % (38-83)
[2016-09-06] MEDS ORDERED: NS 0.9% 1000 ML* 1,000 ML IV ONE (18:12)
--- NOTE | 2016-09-06 19:15 | RAD ---
INDICATION: Chest pain. Short of breath. Evaluate for pulmonary embolus. COMPARISON: Chest x-ray September 05, 2016; CT abdomen pelvis August 17, 2010 TECHNIQUE: Axial source images were obtained from the thoracic inlet to the hemidiaphragms following administration of [address] angiographic technique was utilized. A second injection (89 cc) was required due for inadequate opacification of the pulmonary arterial system. Coronal and sagittal reconstructed images were acquired. CHEST FINDINGS: Neck/thyroid: The visualized neck to include the thyroid appear normal. Chest wall: There are no acute abnormalities of the bony thorax or chest wall. There is no supraclavicular, infraclavicular, or axillary lymphadenopathy. Lungs : There are no pulmonary parenchymal masses or infiltrates. The pulmonary interstitium appears normal. There are no endobronchial lesions. Cardiomediastinal structures: There is no CT evidence of acute pulmonary embolic disease. The heart is normal in size. There is no pericardial effusion. There is no evidence of aortic aneurysm or dissection. There is mild mediastinal lymphadenopathy. There is a 1.4 cm aorticopulmonary window lymph node and there is a right pretracheal lymph node measuring 1.5 cm. The esophagus appears normal. Pleura : There are no pleural-based masses or effusions. Other: There are multiple gallstones, unchanged. There is a 5.2 cm upper pole right renal cyst, unchanged. There is an exophytic or perinephric left-sided cyst measuring 3.6 cm. The cyst appears larger. IMPRESSION: 1. NO CT EVIDENCE OF ACUTE PULMONARY EMBOLIC DISEASE. LUNGS CLEAR. 2. NONSPECIFIC BORDERLINE ENLARGED MEDIASTINAL LYMPH NODES 3. CHOLELITHIASIS, UNCHANGED 4. RENAL CYSTS.
--- NOTE | 2016-09-06 19:57 | ED ---
Colin Beach Benjamin, scribed for Beverly Granger MD on 09/06/16 at 1753 . Shortness of Breath - HPI Summary HPI Summary: 76yo female referred to ED by PCP to rule out PE. Pt is s/p right knee replacement on 07/24/16, but was not kept on Coumadin at [facility]. 1 week after surgery, pt started to feel increasingly SOB, and her blood test showed elevated d-dimer. Denies CP. PT has hx of SVT. - History of Current Complaint Chief Complaint: EDShortnessOfBreath Time Seen by Provider: 09/06/16 16:52 Hx Obtained From: Patient, Family/Echocardiographer Onset/Duration: Gradual Onset, Lasting Weeks, Still Present Timing: Constant Current Severity: Moderate Dyspnea At: Rest Aggrevating Factors: Nothing Alleviating Factors: Oxygen Associated Signs & Symptoms: Calf Pain/Swelling - Allergy/Home Medications Allergies/Adverse Reactions: Allergies Allergy/AdvReac Type Severity Reaction Status Date / Time Morphine AdvReac Intermediate Nausea Verified 07/24/16 11:20 PMH/Surg Hx/FS Hx/Imm Hx Endocrine/Hematology History: Reports: Hx Diabetes, Hx Thyroid Disease - HYPOTHYROIDISM Cardiovascular History: Reports: Hx Angina, Hx Hypercholesterolemia, Hx Hypertension, Hx Valvular Heart Disease - mild tricuspid and mitral insufficiency, Denies: Hx Pacemaker/ICD Comment Only: Other Cardiovascular Problems/Disorders - SERVICE DESK DIRECTOR - DR. MORELAND Respiratory History: Reports: Hx Asthma - HX OF, NO INHALERS, NONE NOW, Hx Sleep Apnea - cpap use GI History: Reports: Hx Gastroesophageal Reflux Disease - ON MEDICATION, Other GI Disorders - gallstones, no symptoms History: Reports: Other Problems/Disorders - HX OF CYSTOCELE AND RETROCELE Musculoskeletal History: Reports: Hx Arthritis - BILATERAL KNEE AND FINGERS, SPINE, Hx Back Problems - Laminenctomy, Hx Fibromyalgia Sensory History: Reports: Hx Cataracts - BILATERAL, Hx Contacts or Glasses, Other Sensory Impairments - Numbness to left side of face s/p left parotid gland removal Denies: Hx Hearing Aid Opthamlomology History: Reports: Hx Cataracts - BILATERAL, Hx Contacts or Glasses, Other Sensory Impairments - Numbness to left side of face s/p left parotid gland removal Neurological History: Reports: Hx Headaches - hx of, Hx Migraine Psychiatric History: Reports: Hx Anxiety, Hx Depression Denies: Hx Panic Disorder - Cancer History Hx Chemotherapy: No Hx Radiation Therapy: No - Surgical History Surgery Procedure, Year, and Place: hysterectomy/cysto rectocele surgery,lumbar disk surgery, bladder repair, left parotid gland removal, cystocele repair, CATARACT Hx Anesthesia Reactions: No - Immunization History Date of Tetanus Vaccine: >10 yrs Date of Influenza Vaccine: >10yrs Infectious Disease History: No Infectious Disease History: Denies: Traveled Outside the [place] in Last 30 Days - Social History Occupation: Retired Lives: With Family Alcohol Use: Rare Alcohol Amount: 1-2 DRINKS A MONTH Substance Use Type: Reports: None Smoking Status (MU): Never Smoked Tobacco Have You Smoked in the Last Year: No Review of Systems Constitutional: Negative Eyes: Negative ENT: Negative Cardiovascular: Negative Negative: Chest Pain Positive: Shortness Of Breath Gastrointestinal: Negative Genitourinary: Negative Musculoskeletal: Negative Skin: Negative Neurological: Negative Psychological: Normal All Other Systems Reviewed And Are Negative: Yes Physical Exam Triage Information Reviewed: Yes Vital Signs On Initial Exam: Initial Vitals Temp Pulse Resp BP Pulse Ox 97.9 F 84 16 155/70 99 09/06/16 16:10 09/06/16 16:10 09/06/16 16:10 09/06/16 16:10 09/06/16 16:10 Vital Signs Reviewed: Yes Appearance: Positive: Well-Appearing, No Pain Distress, Well-Nourished Skin: Positive: Warm, Skin Color Reflects Adequate Perfusion, Dry, Other - well healing right knee incision Head/Face: Positive: Normal Head/Face Inspection Eyes: Positive: EOMI, JUAN CARLOS ENT: Positive: Normal ENT inspection Neck: Positive: Supple, Nontender Respiratory/Lung Sounds: Positive: Clear to Auscultation, Breath Sounds Present Cardiovascular: Positive: RRR Abdomen Description: Positive: Nontender, Soft Bowel Sounds: Positive: Present Musculoskeletal: Positive: Strength/ROM Intact Neurological: Positive: Sensory/Motor Intact, Alert, Oriented to Person Place, Time, CN Intact II-III Psychiatric: Positive: Affect/Mood Appropriate - [place]ado Coma Scale Coma Scale Total: 15 Diagnostics - Vital Signs Vital Signs Temp Pulse Resp BP Pulse Ox 09/06/16 17:39 20 09/06/16 17:38 69 09/06/16 17:30 70 141/64 95 09/06/16 17:00 72 130/65 99 09/06/16 16:59 131/66 08/02/17 16:10 97.9 F 84 16 155/70 99 - Laboratory Lab Results: Lab Results 09/06/16 09/06/16 09/06/16 Range/Units 17:10 17:10 17:10 WBC Pending RBC 4.29 (4.0-5.4) 10^6/ul Hgb 9.9 L (12.0-16.0) g/dl Hct 32 L (35-47) % MCV 74 L (80-97) fL MCH 23 L (27-31) pg MCHC 31 (31-36) g/dl RDW 16 H (10.5-15) % Plt Count Pending MPV Pending Absolute Neuts (auto) Pending Absolute Lymphs (auto) Pending Absolute Monos (auto) Pending Absolute Eos (auto) Pending Absolute Basos (auto) Pending Absolute Nucleated RBC Pending Neutrophils % Pending Normal RBC Morphology Pending Sodium 130 L (133-145) mmol/L Potassium 4.1 (3.5-5.0) mmol/L Chloride 97 L (101-111) mmol/L Carbon Dioxide 27 (22-32) mmol/L Anion Gap 6 (2-11) mmol/L BUN 14 (6-24) mg/dL Creatinine 1.03 H (0.51-0.95) mg/dL Est GFR ( Amer) 66.6 (>60) Est GFR (Non-Af Amer) 51.8 (>60) BUN/Creatinine Ratio 13.6 (8-20) Glucose 169 H (70-100) mg/dL Lactic Acid 1.8 (0.5-2.0) mmol/L Calcium 9.0 (8.6-10.3) mg/dL Total Bilirubin 0.30 (0.2-1.0) mg/dL AST 32 (13-39) U/L ALT 31 (7-52) U/L Alkaline Phosphatase 55 (34-104) U/L Troponin I 0.01 (<0.04) ng/mL Total Protein 6.9 (6.4-8.9) g/dL Albumin 3.9 (3.2-5.2) g/dL Globulin 3.0 (2-4) g/dL Albumin/Globulin Ratio 1.3 (1-3) Result Diagrams: 09/06/16 17:10 09/06/16 17:10 Lab Statement: Any lab studies that have been ordered have been reviewed, and results considered in the medical decision making process. - CT CTA Chest CT Interpretation: No Acute Changes - IMPRESSION: 1. NO CT EVIDENCE OF ACUTE PULMONARY EMBOLIC DISEASE. LUNGS CLEAR. 2. NONSPECIFIC BORDERLINE ENLARGED MEDIASTINAL LYMPH NODES 3. CHOLELITHIASIS, UNCHANGED 4. RENAL CYSTS. CT Interpretation Completed By: Radiologist - EKG 1623. Cardiac Rate: NL - 75bpm EKG Rhythm: Sinus Rhythm ST Segment: Normal Ectopy: None EKG Comparison: No Significant Change - compared to January 2012. Re-Evaluation - Re-Evaluation First Eval Re-Evaluation Time: 19:37 Comment: Discussed lab and imaging results with the pt, as well as pt's course of treatment and disposition. Course/Dx - Course Course Of Treatment: Reviewed pt's medications list and allergies. High blood pressure noted. 76 yo female with recent knee surgery (approx 6 wks ago) with sob since the surgery, cta of chest neg.Trop and ekg normal has an appt with Nasima for tomorrow - Diagnoses Provider Diagnoses: Shortness of breath Discharge - Discharge Plan Condition: Stable Disposition: HOME Patient Education Materials: Dyspnea (ED) Referrals: Neo Davis MD [Medical Doctor] - (Follow up with Dr. Davis tomorrow.) Carmen Pressley MD [Primary Care Provider] - The documentation as recorded by the Colin reno Benjamin accurately reflects the service I personally performed and the decisions made by me, Beverly Granger MD.
[2016-09-06 19:59] VITALS: BP 139/60
== END 2016-09-06 19:58 | disposition home or self-care (01) ==
LOC: ED 16:03
DX: R06.02 Shortness of breath (principal); R60.9 Edema, unspecified; K80.20 Calculus of gallbladder without cholecystitis without obstruction; N28.1 Cyst of kidney, acquired
CPT/HCPCS: 36415; 71275; 80053; 83605; 83880; 84484; 85025; 93005; 99283; Q9967

== ENCOUNTER 2016-09-07 20:09 | Emergency (ER) | payer MEDICARE ==
--- NOTE | 2016-09-07 21:37 | RAD ---
INDICATION: Pain and swelling. COMPARISON: None TECHNIQUE: Duplex interrogation of the Lowerextremity was performed. FINDINGS: Deep veins: The common femoral, great saphenous, profunda femoris, proximal, mid, and distal deep femoral, popliteal, posterior tibial, and peroneal veins are patent. There is normal compressibility, augmentation, and phasic flow. Superficial veins: There are no findings of superficial thrombophlebitis. Popliteal fossa:There is no evidence of a popliteal cyst. Soft tissues:There are no soft tissue abnormalities. IMPRESSION: Normal examination. No evidence of deep venous thrombosis
[2016-09-07 22:12] VITALS: BP 137/78
--- NOTE | 2016-09-07 23:06 | ED ---
Jaclyn Beach Alfonso, scribed for Nacho Cabezas MD on 09/07/16 at 2305 . Shortness of Breath - HPI Summary HPI Summary: This patient is a 76 year old F presenting to [facility] accompanied by daughter with a chief complaint of SOB for one month. Pt rates the pain 0/10 in severity. Symptoms aggravated and alleviated by nothing. Daughter reports a recent knee surgery on 07/24/16. Daughter reports PCP referred patient to ED for evaluation/Doppler. Pt reports recent medication noncompliance with her Coumadin. PMHx of HTN. - History of Current Complaint Chief Complaint: EDShortnessOfBreath Time Seen by Provider: 09/07/16 22:56 Hx Obtained From: Patient, Family/Fire Behavior Analyst - Daughter Onset/Duration: Sudden Onset, Lasting Weeks - month, Still Present Timing: Constant Current Severity: Moderate Aggrevating Factors: Nothing Alleviating Factors: Nothing Associated Signs & Symptoms: Negative - Allergy/Home Medications Allergies/Adverse Reactions: Allergies Allergy/AdvReac Type Severity Reaction Status Date / Time Morphine AdvReac Intermediate Nausea Verified 09/07/16 20:29 PMH/Surg Hx/FS Hx/Imm Hx Endocrine/Hematology History: Reports: Hx Diabetes, Hx Thyroid Disease - HYPOTHYROIDISM Cardiovascular History: Reports: Hx Angina, Hx Hypercholesterolemia, Hx Hypertension, Hx Valvular Heart Disease - mild tricuspid and mitral insufficiency, Denies: Hx Pacemaker/ICD Comment Only: Other Cardiovascular Problems/Disorders - CONSULTING SOLUTION MANAGER - DR. MORELAND Respiratory History: Reports: Hx Asthma - HX OF, NO INHALERS, NONE NOW, Hx Sleep Apnea - cpap use GI History: Reports: Hx Gastroesophageal Reflux Disease - ON MEDICATION, Other GI Disorders - gallstones, no symptoms History: Reports: Other Problems/Disorders - HX OF CYSTOCELE AND RETROCELE Denies: Hx Renal Disease Musculoskeletal History: Reports: Hx Arthritis - BILATERAL KNEE AND FINGERS, SPINE, Hx Back Problems - Laminenctomy, Hx Fibromyalgia Sensory History: Reports: Hx Cataracts - BILATERAL, Hx Contacts or Glasses, Other Sensory Impairments - Numbness to left side of face s/p left parotid gland removal Denies: Hx Hearing Aid Opthamlomology History: Reports: Hx Cataracts - BILATERAL, Hx Contacts or Glasses, Other Sensory Impairments - Numbness to left side of face s/p left parotid gland removal Neurological History: Reports: Hx Headaches - hx of, Hx Migraine Psychiatric History: Reports: Hx Anxiety, Hx Depression Denies: Hx Panic Disorder - Cancer History Hx Chemotherapy: No Hx Radiation Therapy: No - Surgical History Surgery Procedure, Year, and Place: hysterectomy/cysto rectocele surgery,lumbar disk surgery, bladder repair, left parotid gland removal, cystocele repair, CATARACT Hx Anesthesia Reactions: No - Immunization History Date of Tetanus Vaccine: >10 yrs Date of Influenza Vaccine: >10yrs Infectious Disease History: Denies: Traveled Outside the [place] in Last 30 Days - Family History Known Family History: Positive: Unknown - Due to patient being a poor historian. - Social History Alcohol Use: Rare Alcohol Amount: 1-2 DRINKS A MONTH Substance Use Type: Reports: None Smoking Status (MU): Never Smoked Tobacco Have You Smoked in the Last Year: No Review of Systems Negative: Fever Positive: Shortness Of Breath All Other Systems Reviewed And Are Negative: Yes Physical Exam Triage Information Reviewed: Yes Vital Signs On Initial Exam: Initial Vitals Temp Pulse Resp BP Pulse Ox 97.5 F 77 16 150/68 97 09/07/16 20:20 09/07/16 20:20 09/07/16 20:20 09/07/16 20:20 09/07/16 20:20 Vital Signs Reviewed: Yes Appearance: Positive: Well-Appearing, No Pain Distress Skin: Positive: Warm Head/Face: Positive: Normal Head/Face Inspection Eyes: Positive: JUAN CARLOS ENT: Positive: Hearing grossly normal Neck: Positive: Supple Respiratory/Lung Sounds: Positive: Clear to Auscultation, Breath Sounds Present Cardiovascular: Positive: RRR Abdomen Description: Positive: Nontender, Soft Bowel Sounds: Positive: Present Musculoskeletal: Positive: Strength/ROM Intact. Negative: Aric Sign Left, Aric Sign Right, Edema Left, Edema Right Neurological: Positive: Alert, Oriented to Person Place, Time, Normal Gait Psychiatric: Positive: Affect/Mood Appropriate Diagnostics - Vital Signs Vital Signs Temp Pulse Resp BP Pulse Ox 09/07/16 21:45 98.1 F 74 137/78 99 09/07/16 20:20 97.5 F 77 16 150/68 97 - Laboratory Lab Statement: Any lab studies that have been ordered have been reviewed, and results considered in the medical decision making process. - Additional Comments Diagnostic Additional Comments: VL LOWER EXT VEINS BILATERAL reveals, per radiologist, Normal examination. No evidence of deep venous thrombosis. Course/Dx - Course Assessment/Plan: 76 year old F presenting to [facility] accompanied by daughter with a chief complaint of SOB for one month. Daughter reports a recent knee surgery on 07/24/16. Daughter reports PCP referred patient to ED for evaluation/Doppler. Pt reports recent medication noncompliance with her Coumadin. VL LOWER EXT VEINS BILATERAL reveals, per radiologist, Normal examination. No evidence of deep venous thrombosis. Patient will be discharged with follow up from PCP. Pt is agreeable with this plan. - Diagnoses Provider Diagnoses: Dyspnea Discharge - Discharge Plan Condition: Stable Disposition: HOME Patient Education Materials: Dyspnea (ED) Referrals: Carmen Pressley MD [Primary Care Provider] - 3 Days The documentation as recorded by the Jaclyn reno Alfonso accurately reflects the service I personally performed and the decisions made by , Nacho Cabezas MD.
== END 2016-09-07 23:13 | disposition home or self-care (01) ==
LOC: ED 20:09
DX: R06.00 Dyspnea, unspecified (principal)
CPT/HCPCS: 93970; 99282

== ENCOUNTER 2018-01-02 12:31 | Emergency (ER) | payer MEDICARE ==
--- OUTSIDE RECORDS SUMMARY | 2018-01-02 13:05 | XMS REPORT ---
:1940 External Reference #:[id number] Author Organization [facility] Address [address] [place] [address] Phone [phone] Care Team Providers Name Role Phone Carmen Pressley Care Team Information Research Physicist Unavailable Carmen Pressley Primary Care Physician Unavailable Payers Type Date Identification Numbers Payment Provider Subscriber Commercial Effective: Policy Number: Medicare Blue Ppo Pool Dozier 2016 [id number] Group Number: [id number] [address] [id number] PayID: [id number] [place] [address] Problems Date Description Provider Status Onset: 09/08/2015 Localized, primary osteoarthritis Carmen Pressley M.D. Active Onset: 11/23/2014 Mixed hyperlipidemia Carmen Pressley M.D. Active Onset: 11/23/2014 Knee pain Carmen Pressley M.D. Active Onset: 11/23/2014 Spinal stenosis of lumbar region Carmen Pressley M.D. Active Onset: 11/23/2014 Essential hypertension Carmen Pressley M.D. Active Onset: 08/26/2014 Overweight Carmen Pressley M.D. Active Onset: 08/26/2014 Low back pain Carmen Pressley M.D. Active Onset: 03/30/2014 Obstructive sleep apnea syndrome Carmen Pressley M.D. Active Onset: 09/09/2013 Osteoarthritis Carmen Pressley M.D. Active Onset: 09/09/2013 Gastroesophageal reflux disease Carmen Pressley M.D. Active Onset: 09/09/2013 Type 2 diabetes mellitus Carmen Pressley M.D. Active Onset: 09/09/2013 Myalgia & Myositis Unspec Carmen Pressley M.D. Active Onset: 09/09/2013 Hypothyroidism Carmen Pressley M.D. Active Onset: 09/09/2013 Benign essential hypertension Carmen Pressley M.D. Active Onset: 09/09/2013 Hyperlipidemia Carmen Pressley M.D. Active Family History Date Family Member(s) Problem(s) Comments First Son 49 First Daughter 59 Second Daughter 57 First Sister 57 Social History Type Date Description Comments Marital Status Legal Status: Sunday, age 85 dt DM, dementia.(lewy body? vs Alzheimers,) Parkinson's. 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 Cigarette Use Never Smoked Cigarettes ETOH Use Rare Smoking Patient has never smoked Dom Violence Screen screening has been done feels safe at home and in the community. Allergies, Adverse Reactions, Alerts Date Description Reaction Status Severity Comments 09/09/2013 Morphine active BP dropped too low Medications Medication Date Status Form Strength Qnty SIG Indications Ordering Provider Cpap Mask 11/21 Active One and Carmen L. equipment. Wendie, use as M.D. directed. fax to [facility] for respiratory and complex care. Naproxen 10/04 Active Tablets 500mg 60tab Take 1 Carmen L. s Tablet By Wendie, Mouth Two M.D. Times Daily After Meals Ventolin HFA 09/08 Active Aerosol 108(90Bas 8gm 2 puffs Carmen LSruthi e) every 4 Wendie, mcg/Act hours as M.D. needed Lidocaine 09/05 Active Patches 5% 30uni 1 patch R06.02 Carmen L. ts topically Wendie, once daily. M.D. Buspirone HCL 08/21 Active Tablets 7.5mg 60tab Take 1 F43.22 Carmen L. s Tablet By Wendie, Mouth Two M.D. Times Daily Colace 08/04 Active Capsules 100mg 1 by mouth bid-tid prn Amlodipine 08/04 Active Tablets 2.5mg 1 by mouth Unknown every day Vitamin D3 08/04 Active Capsules every day Chromium GTF 08/04 Active Tablets 200mcg 1 po qd Cpap Mask 06/15 Active 1unit and G47.33 Carmen L. s equipment. Wendie, use as M.D. directed. Meloxicam 06/09 Active Tablets 15mg 1 by mouth every day Freestyle Lite 07/21 Active Strips 100un test once Carmen LSruthi Test its daily dx: Wendie, 250.00 M.D. Cymbalta 09/[address] 60mg 90cap Take 1 M79.7 Carmen L. Part s Capsule By Wendie, Mouth Every M.D. Morning Metformin HCL 09/09 Active Tablets 500mg 180ta take 1 E11.9 Carmen L. bs tablet by Wendie, mouth three M.D. times daily Omeprazole 09/09 Active Capsules 20mg 180ca take 1 to [address] ps capsules by Wendie, mouth one M.D. time daily as directed Lovastatin 09/09 Active Tablets 20mg 90tab Take 1 E78.4 Carmen L. s Tablet By Wendie, Mouth AT M.D. Bedtime Levothyroxine 09/09 Active Tablets 50mcg 90tab Take 1 E03.9 Carmen L. Sodium s Tablet By Wendie, Mouth One M.D. Time Daily Diclofenac Sodium Active Gel 1% prn Aspirin Ec Active Tablets 81mg [address] every day Nitroglycerin Active Tablets 0.4mg prn Sub Diltiazem HCL ER Active Caps ER 120mg 1 po qd 12HR Magnesium Oxide Active Tablets 400mg 1 by mouth every day Metoprolol Active Tablets 50mg 180ta Take 1 Carmen L. Tartrate bs Tablet By Wendie, Mouth Two M.D. Times Daily Hydrochlorothiazid Active Tablets 12.5mg 30tab Take 1 Carmen L. e s Tablet By Wendie, Mouth Every M.D. Day Lovenox 09/07 Hx Solution 100mg/ml 20ml inject Carmen LSruthi 100mg sq Wendie, - twice daily M.D. 10/05 Ketoconazole 09/07 Hx Cream 2% 60uni apply thin B35.4 Carmen L. /2015 ts layer to Wendie, - left breast M.D. 04/06 area times a day Nystatin 09/07 Hx Powder [id number] 30gm apply two B35.4 Carmen L. t/GM times daily Wendie, - to left M.D. 04/06 breast area /2016 Cpap Machine And 09/07 Hx dx: g47.33 Carmen LSruthi Equipment. Duration: Wendie, - Lifetime M.D. 04/06 Physical Therapy 05/10 Hx evaluate/tr M54.5 Carmen L. /2015 eat low Wendie, - back pain M.D. 04/06 and r knee pain pool physical therapy pl fax to the [place] [facility]. Physical Therapy 04/18 Hx evaluate N32.81 Carmen L. /2015 and treat Wendie, - overactive M.D. 04/06 bladder Vesicare 04/18 Hx Tablets 10mg 30tab take 1 N32.81 Carmen L. s tablet by Wendie, - mouth every M.D. 04/06 day /2016 Physical Therapy 05/25 Hx evaluate/tr M54.5 Carmen L. eat low Wendie, - back pain M.D. 04/18 pool physical therapy Cpap With Heating 03/30 Hx dx: 327.23 G47.33 Carmen Epstein Unit With /2014 Wendie Compatible Hose. - M.D. 04/06 Celebrex 09/19 Hx Capsules 200mg 30cap 1 po qd Carmen LSruthi /2013 s Wendie, - M.D. 07/10 Metoprolol 09/09 Hx Tablets 50mg 180ta Take 1 I10 Carmen Epstein Tartrate bs Tablet By Wendie, - Mouth Two M.D. 04/06 Times Daily Aspirin 81 00/00 Hx Tablets 81mg 1 po qd Unknown /0000 DR - 04/18 Metoprolol Hx Tablets 50mg 1 po bid Unknown Tartrate / - 11/24 Lovastatin Hx Tablets 20mg 1 po qd Unknown / - 11/[address] 60mg 1 po qd Unknown Part - 11/24 Prilosec OTC Hx Tablets 20mg [address] - 11/24 Metformin HCL Hx Tablets 500mg 1 po bid Unknown - 11/24 Levothyroxine Hx Tablets 50mcg 1 po qd Unknown Sodium / - 11/24 Amlodipine Hx Tablets 2.5mg 1 by mouth Unknown every day - 04/06 Naproxen Hx Tablets 500mg 60tab Take 1 Carmen L. / s Tablet By Wendie, - Mouth Two M.D. 06/09 Times Daily After Meals Tramadol HCL Hx Tablets 50mg 1 by mouth Unknown every 6 - hours as 03/[address] Forrester Oxycodone-Acetamin Hx Tablets 5-325mg 1-2 tab by Unknown ophen / mouth every - 4-6 hours 03/27 as needed Immunizations CPT Code Status Date Vaccine Lot # [id number] Given 08/26/2014 Pneumococcal Conjugate Vacc-13 [id number] Given 11/24/2013 Tdap Tetanus, W Pertussis [id number] Given 05/07/2013 Pneumococcal Immunization Vital Signs Date Vital Result Comment 12/19/2017 BP Systolic 138 mmHg BP Diastolic 84 mmHg Heart Rate 68 /min Body Temperature 98.2 F Respiratory Rate 16 /min Height 66.5 inches 5'6.50" Measured 09/09/13 Weight 230.25 lb BMI (Body Mass Index) 36.6 kg/m2 11/20/2017 BP Systolic 140 mmHg BP Diastolic 78 mmHg Heart Rate 84 /min Body Temperature 98.0 F Respiratory Rate 16 /min Height 66.5 inches 5'6.50" Measured 09/09/13 Weight 229.00 lb BMI (Body Mass Index) 36.4 kg/m2 03/27/2017 BP Systolic 142 mmHg BP Diastolic 90 mmHg Heart Rate 78 /min Body Temperature 98.2 F Respiratory Rate 17 /min Height 66.5 inches 5'6.50" Measured 09/09/13 Weight 228.50 lb BMI (Body Mass Index) 36.3 kg/m2 01/02/2017 BP Systolic 150 mmHg BP Diastolic 90 mmHg Heart Rate 88 /min Body Temperature 99.5 F Respiratory Rate 18 /min Height 66.5 inches 5'6.50" Measured 09/09/13 Weight 229.00 lb BMI (Body Mass Index) 36.4 kg/m2 10/11/2016 BP Systolic 150 mmHg BP Diastolic 84 mmHg Heart Rate 72 /min Body Temperature 98.1 F Respiratory Rate 16 /min Height 66.5 inches 5'6.50" Measured 09/09/13 Weight 223.12 lb BMI (Body Mass Index) 35.5 kg/m2 09/05/2016 BP Systolic 158 mmHg BP Diastolic 92 mmHg Heart Rate 84 /min Body Temperature 98.2 F O2 % BldC Oximetry 98 % Height 66.5 inches 5'6.50" Measured 09/09/13 Weight 222.50 lb BMI (Body Mass Index) 35.4 kg/m2 08/21/2016 BP Systolic 138 mmHg BP Diastolic 80 mmHg Heart Rate 84 /min Body Temperature 98.4 F Respiratory Rate 16 /min Height 66.5 inches 5'6.50" Measured 09/09/13 Weight 220.00 lb BMI (Body Mass Index) 35.0 kg/m2 07/10/2016 BP Systolic 148 mmHg BP Diastolic 70 mmHg Heart Rate 72 /min Body Temperature 98.6 F Respiratory Rate 16 /min Height 66.5 inches 5'6.50" Measured 09/09/13 Weight 228.50 lb BMI (Body Mass Index) 36.3 kg/m2 06/15/2016 BP Systolic 128 mmHg BP Diastolic 80 mmHg Heart Rate 68 /min Body Temperature 98.1 F Respiratory Rate 18 /min Height 66.5 inches 5'6.50" Measured 09/09/13 Weight 231.00 lb BMI (Body Mass Index) 36.7 kg/m2 04/06/2016 BP Systolic 146 mmHg BP Diastolic 70 mmHg Heart Rate 68 /min Body Temperature 97.6 F Respiratory Rate 16 /min Height 66.5 inches 5'6.50" Measured 09/09/13 Weight 226.00 lb BMI (Body Mass Index) 35.9 kg/m2 09/08/2015 BP Systolic 134 mmHg BP Diastolic 80 mmHg Heart Rate 68 /min Body Temperature 98.1 F Respiratory Rate 18 /min Height 66.5 inches 5'6.50" Measured 09/09/13 Weight 234.00 lb BMI (Body Mass Index) 37.2 kg/m2 04/19/2015 BP Systolic 136 mmHg BP Diastolic 80 mmHg Heart Rate 66 /min Body Temperature 97.9 F Respiratory Rate 16 /min Height 66.5 inches 5'6.50" Measured 09/09/13 Weight 235.00 lb BMI (Body Mass Index) 37.4 kg/m2 11/23/2014 BP Systolic 148 mmHg BP Diastolic 80 mmHg Heart Rate 72 /min Body Temperature 98.1 F Respiratory Rate 18 /min Height 66.5 inches 5'6.50" Measured 09/09/13 Weight 238.00 lb BMI (Body Mass Index) 37.8 kg/m2 08/26/2014 BP Systolic 140 mmHg BP Diastolic 70 mmHg Heart Rate 74 /min Body Temperature 97.5 F Respiratory Rate 16 /min Height 66.5 inches 5'6.50" Measured 09/09/13 Weight 236.00 lb BMI (Body Mass Index) 37.5 kg/m2 05/25/2014 BP Systolic 148 mmHg BP Diastolic 76 mmHg Heart Rate 66 /min Body Temperature 97.8 F Respiratory Rate 16 /min Height 66.5 inches 5'6.50" Measured 09/09/13 Weight 236.25 lb BMI (Body Mass Index) 37.6 kg/m2 03/30/2014 BP Systolic 146 mmHg BP Diastolic 82 mmHg Heart Rate 72 /min Body Temperature 96.0 F Respiratory Rate 16 /min Height 66.5 inches 5'6.50" Measured 09/09/13 Weight 236.12 lb BMI (Body Mass Index) 37.5 kg/m2 11/24/2013 BP Systolic 138 mmHg BP Diastolic 76 mmHg Heart Rate 78 /min Body Temperature 97.2 F Respiratory Rate 16 /min Height 66.5 inches 5'6.50" Measured 09/09/13 Weight 231.38 lb BMI (Body Mass Index) 36.8 kg/m2 09/09/2013 BP Systolic 168 mmHg BP Diastolic 90 mmHg Heart Rate 72 /min Body Temperature 96.2 F Respiratory Rate 16 /min Height 66.5 inches 5'6.50" Measured 09/09/13 Weight 233.38 lb BMI (Body Mass Index) 37.1 kg/m2 Results Test Date Test Result H/L Range Note Comp Metabolic Panel 11/28/2017 Sodium 139 mmol/L 135-145 Potassium 3.9 mmol/L 3.5-5.0 Chloride 102 mmol/L 101-111 Co2 Carbon Dioxide 29 mmol/L 22-32 Anion Gap 8 mmol/L 2-11 Glucose 196 mg/dL High 70-100 Blood Urea Nitrogen 19 mg/dL 6-24 Creatinine 1.01 mg/dL High 0.51-0.95 BUN/Creatinine Ratio 18.8 8-20 Calcium 9.7 mg/dL 8.6-10.3 Total Protein 7.3 g/dL 6.4-8.9 Albumin 4.3 g/dL 3.2-5.2 Globulin 3.0 g/dL 2-4 Albumin/Globulin Ratio 1.4 1-3 Total Bilirubin 0.70 mg/dL 0.2-1.0 Alkaline Phosphatase 67 U/L 34-104 Alt 129 U/L High 7-52 Ast 127 U/L High 13-39 Egfr Non- 52.9 >60 Egfr 64.0 >60 1 Iron & Iron Binding Capacity 11/28/2017 Iron 80 g/dL 50-212 Unsaturated Iron Binding 432 g/dL Total Iron Binding Capacity 512 g/dL High 250-450 Transferrin 366 mg/dL High 203-362 % Iron Saturation 16 % 15-55 Laboratory test finding 11/28/2017 Ferritin 114.6 ng/mL 11-307 Hepatitis Acute Panel 11/28/2017 Hepatitis B Surface Nonreactive Nonreactive Antigen Hepatitis B Core IgM Nonreactive Nonreactive Hepatitis A AB IgM Nonreactive Nonreactive Hepatitis C Antibody Nonreactive Nonreactive Laboratory test finding 11/28/2017 Ceruloplasmin 25.1 mg/dL 2 Anti Nuclear Antibody 1.3 U 3 Liver-Kidney Microsome Igg Abs <5.0 U 4 CBC Electronic (a New) 11/20/2017 WBC 6.68 4.0-10.0 RBC 5.12 3.93-6.0 Hemoglobin (Fma/CMC/CTX) 13.5 g/dL 12.0-17.0 Hematocrit (Fma/CMC/CTX) 41.7 % 35.0-50.0 Mean Corpuscular Vol 81.4 fL 80-95 Mean Corpuscular Hemoglobin 26.4 pg 25.6-32.2 Mean Corpuscular Hemo Concen 32.4 g/dL 32.2-36.0 Platelets 218 10^3/ul 163-400 RDW-CV 13.4 11.6-14.4 Mean Platelet Volume 10.1 fL 8.0-12.4 Absolute Neutrophils BLD 4.66 1.56-6.13 Absolute Lymphocytes 1.43 1.18-3.74 Absolute Monocytes BLD Auto 0.36 0.24-0.82 Absolute Eos Blood 0.19 0.04-0.54 Absolute Basophils 0.02 0.01-0.08 Neutrophil % 69.8 % 34.0-70.0 Lymph% 21.4 % 20.0-52.0 Monocytes % 5.4 % 5.0-12.0 Eos % 2.8 % 0.7-7.0 Basophil% 0.3 % 0-1.2 Lipid Profile 11/20/2017 Cholesterol 177 mg/dL 120-200 Triglycerides 252 mg/dL High 30-200 HDL Cholesterol 49 mg/dL 30-85 LDL (Calculated) 78 CALC 0-129 VLDL Cholesterol 50 mg/dL 0-50 HDL Risk Factor 3.6 CALC 0.0-4.4 Comprehensive Metabolic Prof 11/20/2017 Sodium 138 mEq/L 134-149 Potassium 4.6 mEq/L 3.6-5.5 Chloride 101 mEq/L 94-112 Carbon Dioxide 27 mEq/L 21-32 Glucose 249 mg/dL High 70-105 BUN 23 mg/dL 6-26 Creatinine 1.2 mg/dL 0.6-1.4 BUN/Creat Ratio 19.2 CALC 8.0-36.0 Calcium 9.7 mg/dL 8.6-10.2 Total Protein 7.4 g/dL 6.4-8.3 Albumin 4.5 g/dL 3.8-5.5 Globulin 2.9 g/dL 2.0-4.8 A/G Ratio 1.6 CALC 0.6-2.3 Alk. Phosphatase 66 U/L 30-110 Alt (SGPT) 119 U/L High 7-35 Ast (Sgot) 130 U/L High 5-34 Total Bilirubin 0.4 mg/dL 0.2-1.3 GFR Non- 46 ml/min/1.73m^ Low >=60 GFR 56 ml/min/1.73m^ Low >=60 Laboratory test 11/20/2017 TSH 3.66 mIU/L 0.50-6.00 finding Laboratory test 11/20/2017 Hemoglobin A1c (Fma) 8.3 % High 4.1-5.7 finding Laboratory test 03/27/2017 Urine Culture And SEE RESULT 5 finding Sensitivities BELOW Ua - Micro (Fma) 03/27/2017 Appearance clear Color yllow Glucose, Urine (Fma/CMC/CTX) neg Bilirubin neg Ketones trace SP Grav 1.015 Blood neg PH 7.0 Protein neg Urobil 2.0 Nitrite neg Leukocytes (Fma/CMC/Centrex) neg Hyaline - /Lpf Granular - /Lpf WBC (Fma,Centrex) 3-4 RBC 0-1 Mucus - /Lpf Epith few /Lpf Bacteria trace /Hpf Amorphous - /Lpf Crystals, Fluid (Fma/CMC/CTX) - Z#Comments - Istat BUN/Crea/Egfr/V Eastct 02/12/2017 Poc Bun Eastct 19 mg/dL High 9-18 Poc Crea Eastct 1.0 mg/dL High 0.6-0.9 GFR Non- Ect 53.5 >60 GFR Eastct 68.8 >60 6 Laboratory test finding 01/02/2017 Quickstrep negative Negative Iron & Iron Binding Capacity 11/29/2016 Iron 73 g/dL 50-212 Unsaturated Iron Binding 427 g/dL Total Iron Binding Capacity 500 g/dL High 250-450 % Iron Saturation 15 % 15-55 Laboratory test finding 11/29/2016 Ferritin 43.8 ng/mL 11-307 CBC Auto Diff 11/29/2016 White Blood Count 6.3 10^3/uL 3.5-10.8 Red Blood Count 5.27 10^6/uL 4.0-5.4 Hemoglobin 12.4 g/dL 12.0-16.0 Hematocrit 39 % 35-47 Mean Corpuscular Volume 75 fL Low 80-97 7 Mean Corpuscular Hemoglobin 24 pg Low 27-31 Mean Corpuscular HGB Conc 32 g/dL 31-36 Red Cell Distribution Width 21 % High 10.5-15 Platelet Count 232 10^3/uL 150-450 Mean Platelet Volume 8 um3 7.4-10.4 Abs Neutrophils 4.3 10^3/uL 1.5-7.7 Abs Lymphocytes 1.4 10^3/uL 1.0-4.8 Abs Monocytes 0.3 10^3/uL 0-0.8 Abs Eosinophils 0.2 10^3/uL 0-0.6 Abs Basophils 0.1 10^3/uL 0-0.2 Abs Nucleated RBC 0 10^3/uL Granulocyte % 68.1 % 38-83 Lymphocyte % 22.4 % Low 25-47 Monocyte % 5.3 % 1-9 Eosinophil % 3.4 % 0-6 Basophil % 0.8 % 0-2 Nucleated Red Blood Cells % 0 Laboratory test finding 10/11/2016 Hemoglobin A1c (Fma) 6.1 % High 4.1- 5.7 Laboratory test finding 10/03/2016 Angiotensin Converting 31 U/L 8 - 53 8 Enzyme Iron & Iron Binding 10/03/2016 Iron 115 g/dL 50-212 Capacity Unsaturated Iron Binding 375 g/dL Total Iron Binding Capacity 490 g/dL High 250-450 % Iron Saturation 23 % 15-55 CBC Auto Diff 10/03/2016 White Blood Count 4.6 10^3/uL 3.5-10.8 Red Blood Count 4.91 10^6/uL 4.0-5.4 Hemoglobin 11.1 g/dL Low 12.0-16.0 Hematocrit 36 % 35-47 Mean Corpuscular Volume 73 fL Low 80-97 9 Mean Corpuscular Hemoglobin 23 pg Low 27-31 Mean Corpuscular HGB Conc 31 g/dL 31-36 Red Cell Distribution Width 19 % High 10.5-15 Platelet Count 278 10^3/uL 150-450 Mean Platelet Volume 8 um3 7.4-10.4 Abs Neutrophils 2.8 10^3/uL 1.5-7.7 Abs Lymphocytes 1.2 10^3/uL 1.0-4.8 Abs Monocytes 0.4 10^3/uL 0-0.8 Abs Eosinophils 0.2 10^3/uL 0-0.6 Abs Basophils 0 10^3/uL 0-0.2 Abs Nucleated RBC 0 10^3/uL Granulocyte % 60.2 % 38-83 Lymphocyte % 26.0 % 25-47 Monocyte % 9.2 % High 1-9 Eosinophil % 4.0 % 0-6 Basophil % 0.6 % 0-2 Nucleated Red Blood Cells % 0 Laboratory test finding 09/26/2016 Stool Occult Blood SEE RESULT BELOW 10 Laboratory test finding 09/26/2016 Clotest SEE RESULT BELOW 11 Laboratory test finding 09/26/2016 Surgical Interface SEE RESULT BELOW 12 Order Laboratory test finding 09/06/2016 D Dimer Quantitative 2,660 ng/mL 0.0- 400 Laboratory test finding 09/06/2016 B-Type Natriuretic 36 pg/mL 13 Peptide BNP Manual Differential 09/06/2016 Immature Granulocytes 1 % 0-9 Neutrophil % 78 % 38-83 Band % 1 % 0-8 Lymphocytes % 16 % Low 25-47 Monocytes % 4 % 0-13 Eosinophils % 1 % 0-6 Microcytosis 1+ CBC Auto Diff 09/06/2016 Red Blood Count 4.29 10^6/uL 4.0-5.4 Hemoglobin 9.9 g/dL Low 12.0-16.0 Hematocrit 32 % Low 35-47 Mean Corpuscular Volume 74 fL Low 80-97 Mean Corpuscular Hemoglobin 23 pg Low 27-31 Mean Corpuscular HGB Conc 31 g/dL 31-36 Red Cell Distribution Width 16 % High 10.5-15 White Blood Count 7.7 10^3/uL 3.5-10.8 Platelet Count 252 10^3/uL 150-450 Mean Platelet Volume 8 um3 7.4-10.4 Abs Neutrophils 6.1 10^3/uL 1.5-7.7 Abs Lymphocytes 1.2 10^3/uL 1.0-4.8 Abs Monocytes 0.3 10^3/uL 0-0.8 Abs Eosinophils 0.07 10^3/uL 0-0.6 Abs Basophils 0 10^3/uL 0-0.2 Abs Nucleated RBC 0 10^3/uL Laboratory test finding 09/06/2016 Troponin I 0.01 ng/mL <0.04 Comp Metabolic Panel 09/06/2016 Sodium 130 mmol/L Low 133-145 Potassium 4.1 mmol/L 3.5-5.0 Chloride 97 mmol/L Low 101-111 Co2 Carbon Dioxide 27 mmol/L 22-32 Anion Gap 6 mmol/L 2-11 Glucose 169 mg/dL High 70-100 Blood Urea Nitrogen 14 mg/dL 6-24 Creatinine 1.03 mg/dL High 0.51-0.95 BUN/Creatinine Ratio 13.6 8-20 Calcium 9.0 mg/dL 8.6-10.3 Total Protein 6.9 g/dL 6.4-8.9 Albumin 3.9 g/dL 3.2-5.2 Globulin 3.0 g/dL 2-4 Albumin/Globulin Ratio 1.3 1-3 Total Bilirubin 0.30 mg/dL 0.2-1.0 Alkaline Phosphatase 55 U/L 34-104 Alt 31 U/L 7-52 Ast 32 U/L 13-39 Egfr Non- 51.8 >60 Egfr 66.6 >60 14 Laboratory test finding 09/06/2016 Lactic Acid 1.8 mmol/L 0.5-2.0 15 Comprehensive Metabolic Prof 09/05/2016 Sodium 134 mEq/L 134-149 Potassium 4.2 mEq/L 3.6-5.5 Chloride 91 mEq/L Low 94-112 Carbon Dioxide 25 mEq/L 21-32 Glucose 120 mg/dL High 70-105 BUN 16 mg/dL 6-26 Creatinine 0.9 mg/dL 0.6-1.4 BUN/Creat Ratio 17.8 CALC 8.0-36.0 Calcium 9.6 mg/dL 8.6-10.2 Total Protein 6.9 g/dL 6.4-8.3 Albumin 4.2 g/dL 3.8-5.5 Globulin 2.7 g/dL 2.0-4.8 A/G Ratio 1.6 CALC 0.6-2.3 Alk. Phosphatase 60 U/L 30-110 Alt (SGPT) 44 U/L High 7-35 Ast (Sgot) 40 U/L High 5-34 Total Bilirubin 0.4 mg/dL 0.2-1.3 GFR Non- >60 ml/min/1.73m^ >=60 GFR >60 ml/min/1.73m^ >=60 Laboratory test finding 09/05/2016 TSH 4.33 mIU/L 0.50-6.00 Complete Blood Count 09/05/2016 WBC 4.9 x10^3/UL 3.6-9.6 RBC 4.62 x10^6/UL 3.90-5.70 HGB 10.8 g/dL Low 12.1-17.2 16 HCT 34 % Low 36-50 17 MCV 74.0 fL Low 82.2-97.4 18 MCH 23.3 pg Low 27.6-33.3 19 MCHC 32.1 g/dL Low 33.0-35.5 20 RDW 15.8 % High 11.6-13.7 PLT 359 x10^3/UL 150-400 MPV 6.7 fL Low 7.4-10.4 Gran # 3.1 x10^3/UL 1.5-7.2 Lymph# 1.4 x10^3/UL 0.7-4.9 Glades# 0.4 x10^3/UL 0.1-0.9 Gran % 61.7 % 42.2-75.2 Lymph % 29.0 % 20.5-51.1 Glades% 9.3 % 1.7-9.3 Urinalysis Profile 07/17/2016 Urine Color Yellow Urine Appearance Clear Urine Specific [place] 1.014 1.010-1.030 Urine pH 6.0 5-9 Urine Urobilinogen Negative Negative Urine Ketones Negative Negative Urine Protein Negative Negative Urine Leukocytes Negative Negative Urine Blood Negative Negative Urine Nitrite Negative Negative Urine Bilirubin Negative Negative Urine Glucose Negative Negative CBC No Diff 07/17/2016 White Blood Count 6.3 10^3/uL 3.5-10.8 Red Blood Count 4.97 10^6/uL 4.0-5.4 Hemoglobin 12.5 g/dL 12.0-16.0 Hematocrit 39 % 35-47 Mean Corpuscular Volume 79 fL Low 80-97 Mean Corpuscular Hemoglobin 25 pg Low 27-31 Mean Corpuscular HGB Conc 32 g/dL 31-36 Red Cell Distribution Width 15 % 10.5-15 Platelet Count 204 10^3/uL 150-450 Mean Platelet Volume 9 um3 7.4-10.4 Comp Metabolic Panel 07/17/2016 Sodium 136 mmol/L 133-145 Potassium 4.0 mmol/L 3.5-5.0 Chloride 99 mmol/L Low 101-111 Co2 Carbon Dioxide 30 mmol/L 22-32 Anion Gap 7 mmol/L 2-11 Glucose 138 mg/dL High 70-100 Blood Urea Nitrogen 19 mg/dL 6-24 Creatinine 1.19 mg/dL High 0.51-0.95 BUN/Creatinine Ratio 16.0 8-20 Calcium 9.7 mg/dL 8.6-10.3 Total Protein 7.0 g/dL 6.4-8.9 Albumin 4.1 g/dL 3.2-5.2 Globulin 2.9 g/dL 2-4 Albumin/Globulin Ratio 1.4 1-3 Total Bilirubin 0.40 mg/dL 0.2-1.0 Alkaline Phosphatase 53 U/L 34-104 Alt 56 U/L High 7-52 Ast 51 U/L High 13-39 Egfr Non- 43.9 >60 Egfr 56.4 >60 21 Type & Screen 07/17/2016 Patient Blood Type A Positive Antibody Screen NEGATIVE Inr/Protime 07/17/2016 Inr 0.90 0.89-1.11 Laboratory test finding 07/17/2016 Partial Thrombo Time 28.7 seconds 26.0 -36.3 PTT Urine Culture And Sensitivities SEE RESULT BELOW 22 Lipid Profile (Trig/Chol/HDL) 07/10/2016 Triglycerides 178 mg/dL 23 Cholesterol 162 mg/dL 24 HDL Cholesterol 46.0 mg/dL 25 LDL Cholesterol 80 mg/dL 26 Laboratory test finding 07/10/2016 Hemoglobin A1c (Fma) 6.2 % High 4.1- 5.7 Varicella Zoster Igg AB 07/05/2016 Varicella-Zoster IgG Positive 27 Antibody Varicella IgG Antibody Index 3.3 28 Laboratory test finding 07/05/2016 TSH (Thyroid Stim Horm) 2.51 mcIU/mL 0.34-5.60 Free T4 (Free Thyroxine) 0.84 ng/dL 0.61-1.12 T3 Free 3.10 pg/mL 2.5-3.9 Comp Metabolic Panel 07/05/2016 Sodium 135 mmol/L 133-145 Potassium 4.1 mmol/L 3.5-5.0 Chloride 100 mmol/L Low 101-111 Co2 Carbon Dioxide 28 mmol/L 22-32 Anion Gap 7 mmol/L 2-11 Glucose 123 mg/dL High 70-100 Blood Urea Nitrogen 18 mg/dL 6-24 Creatinine 1.06 mg/dL High 0.51-0.95 BUN/Creatinine Ratio 17.0 8-20 Calcium 9.2 mg/dL 8.6-10.3 Total Protein 6.8 g/dL 6.4-8.9 Albumin 4.0 g/dL 3.2-5.2 Globulin 2.8 g/dL 2-4 Albumin/Globulin Ratio 1.4 1-3 Total Bilirubin 0.30 mg/dL 0.2-1.0 Alkaline Phosphatase 55 U/L 34-104 Alt 43 U/L 7-52 Ast 34 U/L 13-39 Egfr Non- 50.1 >60 Egfr 64.5 >60 29 CBC No Diff 07/05/2016 White Blood Count 5.5 10^3/uL 3.5-10.8 Red Blood Count 5.07 10^6/uL 4.0-5.4 Hemoglobin 12.8 g/dL 12.0-16.0 Hematocrit 40 % 35-47 Mean Corpuscular Volume 79 fL Low 80-97 Mean Corpuscular Hemoglobin 25 pg Low 27-31 Mean Corpuscular HGB Conc 32 g/dL 31-36 Red Cell Distribution Width 15 % 10.5-15 Platelet Count 231 10^3/uL 150-450 Mean Platelet Volume 9 um3 7.4-10.4 Laboratory test finding 09/27/2015 Vitamin D Total 25(Oh) 36.7 ng/mL 30- 50 Urine Microalbumin Random 09/27/2015 Urine Creatinine 158.69 mg/dL Ur Microalbumin (mg/L) < 15.0 mg/L Urine Microalbumin/Creatinine TNP ug/mg <31 30 Laboratory test finding 09/27/2015 Free T4 (Free Thyroxine) 0.99 ng/dL 0.61-1.12 TSH (Thyroid Stim Horm) 3.47 mcIU/mL 0.34-5.60 Comp Metabolic-[facility] 09/27/2015 Sodium 137 mmol/L 133-145 Potassium 4.0 mmol/L 3.5-5.0 Chloride 100 mmol/L Low 101-111 Co2 Carbon Dioxide 31 mmol/L 22-32 Anion Gap 6 mmol/L 2-11 Glucose 113 mg/dL High 70-100 Blood Urea Nitrogen 25 mg/dL High 6-24 Creatinine 1.20 mg/dL High 0.51-0.95 BUN/Creatinine Ratio 20.8 High 8-20 Calcium 9.2 mg/dL 8.6-10.3 Total Protein 6.7 g/dL 6.4-8.9 Albumin 3.9 g/dL 3.2-5.2 Globulin 2.8 g/dL 2-4 Albumin/Globulin Ratio 1.4 1-3 Total Bilirubin 0.40 mg/dL 0.2-1.0 Alkaline Phosphatase 41 U/L 34-104 Alt 27 U/L 7-52 Ast 28 U/L 13-39 Egfr Non- 43.6 >60 Egfr 56.0 >60 31 Lipid Panel-[facility] 09/27/2015 Triglycerides 143 mg/dL 32 Cholesterol 146 mg/dL 33 HDL Cholesterol 40.1 mg/dL 34 LDL Cholesterol 77 mg/dL 35 CBC Electronic-[facility] 09/27/2015 White Blood Count 4.6 10^3/uL 3.5-10.8 Red Blood Count 4.87 10^6/uL 4.0-5.4 Hemoglobin 12.5 g/dL 12.0-16.0 Hematocrit 39 % 35-47 Mean Corpuscular Volume 79 fL Low 80-97 Mean Corpuscular Hemoglobin 26 pg Low 27-31 Mean Corpuscular HGB Conc 33 g/dL 31-36 Red Cell Distribution Width 14 % 10.5-15 Platelet Count 197 10^3/uL 150-450 Mean Platelet Volume 9 um3 7.4-10.4 Abs Neutrophils 2.7 10^3/uL 1.5-7.7 Abs Lymphocytes 1.4 10^3/uL 1.0-4.8 Abs Monocytes 0.4 10^3/uL 0-0.8 Abs Eosinophils 0.2 10^3/uL 0-0.6 Abs Basophils 0 10^3/uL 0-0.2 Abs Nucleated RBC 0.01 10^3/uL Granulocyte % 58.2 % 38-83 Lymphocyte % 29.8 % 25-47 Monocyte % 7.7 % 1-9 Eosinophil % 3.6 % 0-6 Basophil % 0.7 % 0-2 Nucleated Red Blood Cells % 0.1 Laboratory test finding 09/08/2015 Hemoglobin A1c (Fma) 6.2 % % High 4.1- 5.7 Laboratory test finding 04/19/2015 Hemoglobin A1c (Fma) 7.1 % High 4.1- 5.7 Laboratory test finding 11/23/2014 Hemoglobin A1c 6.4 % High 4.1-5.7 (Fma/CMC,CX) Comprehensive Metabolic 08/26/2014 Sodium 140 mEq/L 134-149 Prof Potassium 4.0 mEq/L 3.6-5.5 Chloride 104 mEq/L 94-112 Carbon Dioxide 27 mEq/L 21-32 Glucose 148 mg/dL High 70-105 BUN 26 mg/dL 6-26 Creatinine 1.1 mg/dL 0.6-1.4 BUN/Creat Ratio 23.6 CALC 8.0-36.0 Calcium 9.7 mg/dL 8.6-10.2 Total Protein 7.9 g/dL 6.4-8.3 Albumin 4.5 g/dL 3.8-5.5 Globulin 3.4 g/dL 2.0-4.8 A/G Ratio 1.3 CALC 0.6-2.3 Alk. Phosphatase 52 U/L 30-110 Alt (SGPT) 45 U/L High 7-35 Ast (Sgot) 37 U/L High 5-34 Total Bilirubin 0.4 mg/dL 0.2-1.3 Laboratory test finding 08/26/2014 TSH 2.11 mIU/L 0.50-6.00 Free T3 2.33 pg/mL 2.00-4.90 Lyme Western Blot Ser 08/26/2014 IgG P93 Ab. Absent IgG P66 Ab. Absent IgG P58 Ab. Absent IgG P45 Ab. Absent IgG P41 Ab. Absent IgG P39 Ab. Absent IgG P30 Ab. Absent IgG P28 Ab. Absent IgG P23 Ab. Absent IgG P18 Ab. Absent Lyme IgG WB Interp. Negative 36 IgM P41 Ab. Absent IgM P39 Ab. Absent IgM P23 Ab. Absent Lyme IgM WB Interp. Negative 37 CBC Electronic ([facility]) 08/26/2014 WBC 7.1 3.6-9.6 RBC 5.00 3.90-5.70 Hemoglobin (Fma/CMC/CTX) 13.6 g/dL 12.1 - 17.2 Hematocrit (Fma/CMC/CTX) 40.7 % 36.1 - 50.3 Platelets 217 10^3/ul 150-400 Lymph% 26.0 % 17.0-48.0 Mixed% 6.0 Neutrophils % 68.0 Mean Corpuscular Vol 81 Low 82.2-97.4 Mean Corpuscular Hemoglobin 27.2 Low 27.6-33.3 Mean Corpuscular Hemo Concen 33.4 32.0-36.0 RDW 13.9 High 11.6-13.7 Mean Platelet Volume 7.7 5.5-11.0 Laboratory test 03/30/2014 Hemoglobin A1c 6.6 % High 4.1-5.7 finding (a/[facility],CX) Surgical Pathology 02/10/2014 S RUN DATE: 38 02/11/ <SEE NOTE> Vitamin D, 25 Hydroxy 12/06/2013 25-Hydroxy Vitamin D2 <4.0 ng/mL 39 25-Hydroxy Vitamin D3 32 ng/mL 39 25-Hydroxy Vitamin D Total 32 ng/mL 39, 40 Laboratory test finding 12/06/2013 Free T4 0.96 ng/mL 0.61-1.12 39, 41 TSH (Thyroid Stimulating Horm) 2.38 IU/mL 0.34-5.60 39, 42 Hemoglobin A1c 6.6 % High Less than 6.0 39, 43 Lipid Profile (Trig/Chol/HDL) 12/06/2013 Triglycerides 142 mg/dL 39, 44 Cholesterol 148 mg/dL 39, 45 HDL Cholesterol 41.5 mg/dL 39, 46 LDL Cholesterol 78 mg/dL 39, 47 Comp Metabolic Panel 12/06/2013 Sodium 135 mmol/L 133-145 39 Potassium 3.9 mmol/L 3.7-5.6 39 Chloride 99 mmol/L Low 101-111 39 Co2 Carbon Dioxide 29 mmol/L 22-32 39 Anion Gap 7 mmol/L 2-11 39 Glucose 125 mg/dL High 70-100 39 Blood Urea Nitrogen 17 mg/dL 6-24 39 Creatinine 0.90 mg/dL 0.51-0.95 39 BUN/Creatinine Ratio 18.9 8-20 39 Calcium 9.2 mg/dL 8.6-10.3 39 Total Protein 6.7 g/dL 6.4-8.9 39 Albumin 3.9 g/dL 3.2-5.2 39 Globulin 2.8 g/dL 2-4 39 Albumin/Globulin Ratio 1.4 1-3 39 Total Bilirubin 0.50 mg/dL 0.2-1.0 39 Alkaline Phosphatase 42 U/L 34-104 39 Alt 38 U/L 7-52 39 Ast 36 U/L 13-39 39 Egfr Non- 61.0 >60 39 Egfr 78.5 >60 39, 48 CBC Auto Diff 12/06/2013 White Blood Count 5.2 10^3/uL 4.8-10.8 39 Red Blood Count 4.80 10^6/uL 4.0-5.4 39 Hemoglobin 12.5 g/dL 12.0-16.0 39 Hematocrit 39 % 35-47 39 Mean Corpuscular Volume 81 fL 80-97 39 Mean Corpuscular Hemoglobin 26 pg Low 27-31 39 Mean Corpuscular HGB Conc 32 g/dL 31-36 39 Red Cell Distribution Width 14 % 10.5-15 39 Platelet Count 232 10^3/uL 150-450 39 Mean Platelet Volume 8 um3 7.4-10.4 39 Abs Neutrophils 3.1 10^3/uL 1.5-7.7 39 Abs Lymphocytes 1.6 10^3/uL 1.0-4.8 39 Abs Monocytes 0.3 10^3/uL 0-0.8 39 Abs Eosinophils 0.2 10^3/uL 0-0.6 39 Abs Basophils 0.1 10^3/uL 0-0.2 39 Abs Nucleated RBC 0.01 10^3/uL 39 Granulocyte % 59.8 % 38-83 39 Lymphocyte % 30.0 % 25-47 39 Monocyte % 6.2 % 1-9 39 Eosinophil % 2.9 % 0-6 39 Basophil % 1.1 % 0-2 39 Nucleated Red Blood Cells % 0.1 39 Basic Metabolic Panel 07/04/2013 Sodium 138 mmol/L 133-145 Potassium 3.6 mmol/L Low 3.7-5.6 Chloride 102 mmol/L 101-111 Co2 Carbon Dioxide 30 mmol/L 22-32 Anion Gap 6 mmol/L 2-11 Glucose 143 mg/dL High 70-100 Blood Urea Nitrogen 21 mg/dL 6-24 Creatinine 1.05 mg/dL High 0.51-0.95 BUN/Creatinine Ratio 20.0 8-20 Calcium 9.5 mg/dL 8.6-10.3 Egfr Non- 51.1 >60 Egfr 65.7 >60 49 1 Because ethnic data is not always readily available, this report includes an eGFR for both -Americans and non- Americans. The National Kidney Disease Education Program (NKDEP) does not endorse the use of the MDRD equation for patients that are not between the ages of 18 and 70, are , have extremes of body size, muscle mass, or nutritional status, or are non- or non-. According to the National Kidney Foundation, irrespective of diagnosis, the stage of the disease is based on the level of kidney function: Stage Description GFR(mL/min/1.73 m(2)) 1 Kidney damage with normal or decreased GFR 90 2 Kidney damage with mild decrease in GFR 60-89 3 Moderate decrease in GFR 30-59 4 Severe decrease in GFR 15-29 5 Kidney failure <15 (or dialysis) 2 REFERENCE VALUE 20.0 - 51.0 Test Performed by: [facility] [address] [place] [address] 3 Interpretation: Weak Positive (1.1-2.9) REFERENCE VALUE <=1.0 (Negative) Test Performed by: [facility] [address] [place] [address] 4 REFERENCE VALUE <=20.0 (Negative) Test Performed by: [address] [address] 5 SEE RESULT BELOW Name: POOL DOZIER : [address]: Carmen Pressley MD Acct: [id number] Unit: [id number] AGE: 77 Location: [facility] Re03/27/17 SEX: F Status: REG REF SPEC: [id number] VENUS: 03/27/17-[address] [facility] [address]: Carmen Pressley MD REQ: [id number] RECD: 03/27/17 STATUS: COMP _ SOURCE: [facility]: ORDERED: Urine Culture COMMENTS: [id number] goodwin top Urine Source: Random Procedure Result Reported Site Urine Culture Final 03/29/17- 918 ML No growth of clinically significant organisms * ML - MAIN LAB ([facility]) . END OF REPORT * ML=Testing performed at Main Lab DEPARTMENT OF PATHOLOGY, [address] [place] [address] Murray Abdullahi M.D. Director [facility] # [id number] 6 Because ethnic data is not always readily available, this report includes an eGFR for both -Americans and non- Americans. The National Kidney Disease Education Program (NKDEP) does not endorse the use of the MDRD equation for patients that are not between the ages of 18 and 70, are , have extremes of body size, muscle mass, or nutritional status, or are non- or non-. According to the National Kidney Foundation, irrespective of diagnosis, the stage of the disease is based on the level of kidney function: Stage Description GFR(mL/min/1.73 m(2)) 1 Kidney damage with normal or decreased GFR 90 2 Kidney damage with mild decrease in GFR 60-89 3 Moderate decrease in GFR 30-59 4 Severe decrease in GFR 15-29 5 Kidney failure <15 (or dialysis) 7 Consistent with previous results on 10/03/16. 8 Test Performed by: [place] [id number] 9 Consistent with previous results on 09/06/16. 10 SEE RESULT BELOW Name: AMOS DOZIERGEOVANNI Cohen : [address]: Talat Ballesteros MD Acct: [id number] Unit: [id number] AGE: 76 Location: ENDO Re09/26/16 SEX: F Status: REG REF SPEC: [id number] VENUS: 09/26/16-[address]: Talat Ballesteros MD REQ: [id number] RECD: 09/26/16-3888 STATUS: COMP OT DR: Carmen Pressley MD _ SOURCE: STOOL SPDESC: ORDERED: Occult Bl, Diag Procedure Result Reported Site Stool Occult Blood (1) Final 09/26/16- 1630 ML Stool Occult Blood Negative Collection Date (1) 09/26/16 * ML - MAIN LAB ([facility]) . END OF REPORT * ML=Testing performed at Main Lab DEPARTMENT OF PATHOLOGY, [address] [place] [address] Murray Abdullahi M.D. Director [facility] # [id number] 11 SEE RESULT BELOW Name: POOL DOZIER : [address]: Talat Ballesteros MD Acct: [id number] Unit: [id number] AGE: 76 Location: ENDO Re09/26/16 SEX: F Status: REG REF SPEC: [id number] VENUS: 09/26/16-[address]: Talat Ballesteros MD REQ: [id number] RECD: 09/26/16-1347 STATUS: COMP OTHR DR: Carmen Pressley MD _ SOURCE: GAS ANTRUM SPDESC: ORDERED: Clotest Procedure Result Reported Site Clotest Final 09/27/16- 08 ML Clotest Negative * ML - MAIN LAB ([facility]) . END OF REPORT * ML=Testing performed at Main Lab DEPARTMENT OF PATHOLOGY, [address] [place] [address] Murray Abdullahi M.D. Director [facility] # [id number] 12 SEE RESULT BELOW Name: POOL DOZIER : [address]: Talat Ballesteros MD Acct: [id number] Unit: [id number] AGE: 76 Location: ENDO Re09/26/16 SEX: F Status: DEP REF SPEC: [id number] VENUS: 09/26/16-[address] [facility] [address]: Talat Ballesteros MD REQ: [id number] RECD: 09/26/16-861 STATUS: NOELLE IRIZARRY DR: Carmen Pressley MD _ ORDERED: LEVEL 4, IMMUNO-FIRST FINAL DIAGNOSIS Stomach, greater curvature biopsies: -- Gastric oxyntic gland mucosa with focal active gastritis. -- No evidence of Helicobacter pylori-like organisms identified. See comment. An immunohistochemical stain for Helicobacter pylori-like organisms performed with appropriate controls and is negative. CLINICAL HISTORY Patient developed shortness of breath status post right total Knee replacement two months ago, primary provider is Dr. Carmen Pressley. Chest x-ray DVT and pulmonary embolism ruled out. Patient was on warfarin with exception during week stay at [facility]. Patient takes Prilosec past 10 years. POST-OPERATIVE DIAGNOSIS Larynx - normal; esophagus - normal to esophagogastric at 39; small to medium hiatal hernia, sludge during removal, no Silva's. Stomach - normal; except antrum papillated minimal erythema; duodenum - normal. Conclusions/Plan: Hiatal hernia, gastroesophageal reflex disease no scarring, gastritis, mycrotic anemia likely multifactorial GROSS DESCRIPTION The specimen is received in formalin labeled, Gastric Greater Curvature Biopsies, and consists of two martinez irregular soft tissue fragments averaging 0.9 x 0.2 x 0.1 cm which are submitted entirely in one cassette. Signed (signature on file) Murray Abdullahi MD 1024 END OF REPORT * ML=Testing performed at Main Lab DEPARTMENT OF PATHOLOGY, [address] [place] [address] Murray Abdullahi M.D. Director [facility] # [id number] 13 >100 to <200 pg/mL: likely compensated congestive heart failure (CHF) 200 to 400 pg/mL: likely moderate CHF >400 pg/mL: likely moderate to severe CHF 14 Because ethnic data is not always readily available, this report includes an eGFR for both -Americans and non- Americans. The National Kidney Disease Education Program (NKDEP) does not endorse the use of the MDRD equation for patients that are not between the ages of 18 and 70, are , have extremes of body size, muscle mass, or nutritional status, or are non- or non-. According to the National Kidney Foundation, irrespective of diagnosis, the stage of the disease is based on the level of kidney function: Stage Description GFR(mL/min/1.73 m(2)) 1 Kidney damage with normal or decreased GFR 90 2 Kidney damage with mild decrease in GFR 60-89 3 Moderate decrease in GFR 30-59 4 Severe decrease in GFR 15-29 5 Kidney failure <15 (or dialysis) 15 [facility] Severe Sepsis and Septic Shock Management Bundle Measure requires all lactic acids initially measuring >2.0 mmol/L be repeated. 16 RESULTS VERIFIED BY REPEAT ANALYSIS 17 RESULTS VERIFIED BY REPEAT ANALYSIS 18 RESULTS VERIFIED BY REPEAT ANALYSIS 19 RESULTS VERIFIED BY REPEAT ANALYSIS 20 RESULTS VERIFIED BY REPEAT ANALYSIS 21 Because ethnic data is not always readily available, this report includes an eGFR for both -Americans and non- Americans. The National Kidney Disease Education Program (NKDEP) does not endorse the use of the MDRD equation for patients that are not between the ages of 18 and 70, are , have extremes of body size, muscle mass, or nutritional status, or are non- or non-. According to the National Kidney Foundation, irrespective of diagnosis, the stage of the disease is based on the level of kidney function: Stage Description GFR(mL/min/1.73 m(2)) 1 Kidney damage with normal or decreased GFR 90 2 Kidney damage with mild decrease in GFR 60-89 3 Moderate decrease in GFR 30-59 4 Severe decrease in GFR 15-29 5 Kidney failure <15 (or dialysis) 22 SEE RESULT BELOW Name: POOL DOZIER : [address]: Dayna Forrester MD Acct: [id number] Unit: [id number] AGE: 76 Location: [facility] Re07/17/16 SEX: F Status: REG REF SPEC: [id number] VENUS: 07/17/16-[address] [facility] [address]: Dayna Forrester MD REQ: [id number] RECD: 07/18/16 STATUS: COMP DEXTER DR: Carmen Pressley MD _ SOURCE: URINE SPDESC: ORDERED: Urine Culture QUERIES: Urine Source: Clean Catch Procedure Result Reported Site Urine Culture Final 07/19/16- 08 ML Mixed anamaria; possible contamination. Suggest resubmission. * ML - MAIN LAB ([facility]) . END OF REPORT * ML=Testing performed at Main Lab DEPARTMENT OF PATHOLOGY, [address] [place] [address] Murray Abdullahi M.D. Director [facility] # [id number] 23 Desirable <150 Borderline high 150-199 High 200-499 Very High >500 24 Desirable <200 Borderline high 200-239 High >239 25 Low <40 Desirable: 40-60 High: >60 26 Desirable: <100 mg/dL Near Optimal: 100-129 mg/dL Borderline High: 130-159 mg/dL High: 160-189 mg/dL Very High: >189 mg/dL 27 Results suggest response to immunization or prior exposure to the virus. REFERENCE VALUE Vaccinated: Positive (>=1.1 AI) Unvaccinated: Negative (<=0.8 AI) 28 Test Performed by: [place] [address] 29 Because ethnic data is not always readily available, this report includes an eGFR for both -Americans and non- Americans. The National Kidney Disease Education Program (NKDEP) does not endorse the use of the MDRD equation for patients that are not between the ages of 18 and 70, are , have extremes of body size, muscle mass, or nutritional status, or are non- or non-. According to the National Kidney Foundation, irrespective of diagnosis, the stage of the disease is based on the level of kidney function: Stage Description GFR(mL/min/1.73 m(2)) 1 Kidney damage with normal or decreased GFR 90 2 Kidney damage with mild decrease in GFR 60-89 3 Moderate decrease in GFR 30-59 4 Severe decrease in GFR 15-29 5 Kidney failure <15 (or dialysis) 30 Unable to calculate due to low microalbumin 31 Because ethnic data is not always readily available, this report includes an eGFR for both -Americans and non- Americans. The National Kidney Disease Education Program (NKDEP) does not endorse the use of the MDRD equation for patients that are not between the ages of 18 and 70, are , have extremes of body size, muscle mass, or nutritional status, or are non- or non-. According to the National Kidney Foundation, irrespective of diagnosis, the stage of the disease is based on the level of kidney function: Stage Description GFR(mL/min/1.73 m(2)) 1 Kidney damage with normal or decreased GFR 90 2 Kidney damage with mild decrease in GFR 60-89 3 Moderate decrease in GFR 30-59 4 Severe decrease in GFR 15-29 5 Kidney failure <15 (or dialysis) 32 Desirable <150 Borderline high 150-199 High 200-499 Very High >500 33 Desirable <200 Borderline high 200-239 High >239 34 Low <40 Desirable: 40-60 High: >60 35 Desirable: <100 mg/dL Near Optimal: 100-129 mg/dL Borderline High: 130-159 mg/dL High: 160-189 mg/dL Very High: >189 mg/dL 36 Positive: 5 of the following Borrelia-specific bands: 18,23,28,30,39,41,45,58, 66, and 93. Negative: No bands or banding patterns which do not meet positive criteria. 37 Note: An equivocal or positive EIA result followed by a negative Western Blot result is considered NEGATIVE. An equivocal or positive EIA result followed by a positive Western Blot is considered POSITIVE by the CDC. Positive: 2 of the following bands: 23,39 or 41 Negative: No bands or banding patterns which do not meet positive criteria. Criteria for positivity are those recommended by CDC/ASTPHLD. p23=Osp C, m98=yazinkzlc Note: Sera from individuals with the following may cross react in the Lyme Western Blot assays: other spirochetal diseases (periodontal disease, leptospirosis, relapsing fever, yaws, and pinta); connective autoimmune (Rheumatoid Arthritis and Systemic Lupus Erythematosus and also individuals with Antinuclear Antibody); other infections (Mustang Spotted Fever; Jacob-Cadet Virus, and Cytomegalovirus). 38 RUN DATE: 02/11/14 [facility] LAB LIVE PAGE 1 RUN TIME: [id number] [place], [place] [address] Specimen Inquiry Name: POOL DOZIER : [address]: Talat aBllesteros MD Acct: [id number] Unit: [id number] AGE: 74 Location: ENDO Re02/10/14 SEX: F Status: REG REF SPEC: [id number] VENUS: 02/10/14-[address]: Talat Ballesteros MD REQ: [id number] RECD: 02/10/14-1301 STATUS: NOELLE IRIZARRY DR: Carmen Pressley MD _ ORDERED: LEVEL IV FINAL DIAGNOSIS Colon, cecal, biopsy: -- Large intestinal mucosa mild architectural disorder and focal acute superficial colitis with focal cryptitis. -- No hyperplasia or dysplasia identified. -- No crypt abscesses or granulomas identified. CLINICAL HISTORY Screening colonoscopy with rectal bleeding POST-OPERATIVE DIAGNOSIS Screening colonoscopy to cecum with ease, fair prep - cecal cap nodule, biopsied, all rest negative. Cecal nodule - no set follow-up GROSS DESCRIPTION The specimen is received in formalin labeled, Biopsy Cecal Cap Nodule, and consists of two martinez-pink irregular soft tissue fragments averaging 0.3 x 0.2 x 0.2 cm, which are submitted entirely in one cassette. Signed (signature on file) Murray Abdullahi MD 1436 END OF REPORT * ML=Testing performed at Main Lab DEPARTMENT OF PATHOLOGY, [address] [place] [address] Murray Abdullahi M.D. Director [facility] # [id number] 39 PT IS FASTING 40 REFERENCE VALUE 25-HYDROXY D TOTAL (D2+D3) Optimum levels in the healthy population are 20-50, patients with bone disease may benefit from higher levels within this range. Test Performed by: [facility] - [address] [address] Drum Straightener: Nikko Sanchez M.D. 41 PT IS FASTING 42 PT IS FASTING 43 Therapeutic target for the treatment of diabetes Mellitus patients is <7% HBA1C, and in selective patients <6.0%.Please refer to [place] [employer] Diabetic care guidelines for further information. 44 Desirable <150 Borderline high 150-199 High 200-499 Very High >500 45 Desirable <200 Borderline high 200-239 High >239 46 Low <40 Desirable: 40-60 High: >60 47 Desirable <100 Near Optimal 100-129 Borderline high 130-159 High 160-189 Very High >189 48 Because ethnic data is not always readily available, this report includes an eGFR for both -Americans and non- Americans. The National Kidney Disease Education Program (NKDEP) does not endorse the use of the MDRD equation for patients that are not between the ages of 18 and 70, are , have extremes of body size, muscle mass, or nutritional status, or are non- or non-. According to the National Kidney Foundation, irrespective of diagnosis, the stage of the disease is based on the level of kidney function: Stage Description GFR(mL/min/1.73 m(2)) 1 Kidney damage with normal or decreased GFR 90 2 Kidney damage with mild decrease in GFR 60-89 3 Moderate decrease in GFR 30-59 4 Severe decrease in GFR 15-29 5 Kidney failure <15 (or dialysis) 49 Because ethnic data is not always readily available, this report includes an eGFR for both -Americans and non- Americans. The National Kidney Disease Education Program (NKDEP) does not endorse the use of the MDRD equation for patients that are not between the ages of 18 and 70, are , have extremes of body size, muscle mass, or nutritional status, or are non- or non-. According to the National Kidney Foundation, irrespective of diagnosis, the stage of the disease is based on the level of kidney function: Stage Description GFR(mL/min/1.73 m(2)) 1 Kidney damage with normal or decreased GFR 90 2 Kidney damage with mild decrease in GFR 60-89 3 Moderate decrease in GFR 30-59 4 Severe decrease in GFR 15-29 5 Kidney failure <15 (or dialysis) Procedures Date CPT Code Description Status Comment 10/11/2016 94935 Finger Or Heel Stick Completed 09/05/2016 11756 Pulse Oximetry Completed 09/05/2016 11632 Electrocardiogram Complete Completed 07/10/2016 71661 Finger Or Heel Stick Completed 07/05/2016 Mammogram Completed 10/07/2015 Diabetic Retinal Eye Exam Completed Dr Gray will be seeing him in 09/2016. 09/08/2015 99541 Finger Or Heel Stick Completed 04/19/2015 92188 Finger Or Heel Stick Completed 03/09/2015 Mammogram Completed 11/23/2014 44657 Finger Or Heel Stick Completed 05/12/2014 Mammogram Completed 03/30/2014 39747 Finger Or Heel Stick Completed 02/10/2014 Colonoscopy Completed 08/15/2013 Mammogram Completed Encounters Type Date Location Provider CPT E/M Dx Office Visit 11/20/2017 2:10p Main Office Carmen Pressley M.D. 07269 Z01.818 M25.552 M16.12 I47.1 E11.9 I10 E03.9 G47.33 Office Visit 03/27/2017 3:00p Main Office Carmen Pressley M.D. 53187 R35.0 R94.6 Q61.9 E66.3 Office Visit 01/02/2017 3:40p Main Office Carmen Pressley M.D. 73514 J06.9 Office Visit 10/11/2016 3:40p Main Office Carmen Pressley M.D. 97650 R06.02 Z96.651 E11.9 Office Visit 09/05/2016 11:20a [facility] Carmen Pressley M.D. 46027 R06.02 M54.5 Office Visit 08/21/2016 7:30p Main Office Carmen Pressley M.D. 99416 F43.22 Office Visit 07/10/2016 5:40p Main Office Carmen Pressley M.D. 17401 Z01.818 M25.561 M25.461 E11.9 Office Visit 06/15/2016 9:00a [facility] Carmen Pressley M.D. 82089 Z00.01 Z12.31 E78.2 I10 G47.33 E66.3 M25.552 M25.522 E11.9 Z11.59 Office Visit 04/06/2016 10:40a Main Office Adrian Phelps M.D. 98203 I47.1 N39.3 Office Visit 09/08/2015 2:40p Main Office Carmen Pressley M.D. 02154 E11.9 M17.11 M25.561 E78.2 I10 E55.9 B35.4 G47.33 Office Visit 04/19/2015 6:30p Main Office Carmen Pressley M.D. 47629 E11.9 I10 M25.561 E66.3 N32.81 Office Visit 11/23/2014 4:40p Main Office Carmen Pressley M.D. 23450 I10 E11.9 M48.06 M25.561 R06.02 E78.2 Office Visit 08/26/2014 4:00p [facility] Carmen Pressley M.D. 03554 250.00 401.1 272.4 724.2 244.9 530.81 278.02 780.79 V03.82 Office Visit 05/25/2014 5:40p Main Office Carmen Pressley M.D. 45292 785.6 724.2 401.1 278.02 Office Visit 03/30/2014 5:40p Main Office Carmen Pressley M.D. 71088 250.00 401.1 327.23 782.9 Office Visit 11/24/2013 7:40p Main Office Carmen Pressley M.D. 11653 V06.5 272.4 401.1 244.9 250.00 530.81 268.9 715.96 784.7 Office Visit 09/09/2013 2:50p Main Office Carmen Pressley M.D. 06264 272.4 401.1 244.9 729.1 250.00 530.81 715.90 309.0 V70.0 Plan of Care Future Appointment(s):01/16/2018 3:40 pm - Carmen Pressley M.D. at Main [facility]8612/19/2017 - Carmen Pressley M.D.E11.9 Type 2 diabetes mellitus without complicationsComments:blood sugar record. take your fasting blood glucose 3 times a week. before you eat or take medicine.also take it around dinner time on the same days.R74.8 Abnormal levels of other serum enzymesComments:will refer you to GI for an evaluation of your liver.N39.0 Urinary tract infection, site not specifiedNew Labs:Ua - Micro (Fma)Urine C& S ([facility])Comments:will wait for culture to come back. and you will have it sent to the hospital. Drink more water.AllComments:~B_~U_Medication Management~b_~u_ Patient Understands medications she's taking? Yes No Are there Barriers to Adherence? Yes No Has the patient been asked about herbal supplements and therapies, and OTC meds? Yes No
--- NOTE | 2018-01-02 15:41 | ED ---
Lower Extremity - HPI Summary HPI Summary: Patient presents with right ankle and Rt posterior calf pain since injury prior to arrival. She reports she was walking up the steps with a load of wood and as she stepped with her left leg, bearing weight with her right leg, she felt acute pain like someone had struck her in the back of the calf on the Rt. She now has pain with movement of her Rt ankle but denies numbness, tingling or weakness. She initially had some tingling in her ankle region. Admits to pain in this ankle and calf region leading up to this event as she's been waiting on left hip surgery and has been favoring her left leg, overusing her right leg. She's been using kinesio tape to help her right ankle and calf discomfort however this is pain today is acute and much more painful than usual. She denies use of fluoroquinolones or steroids leading up to this however she was recently advised to stop taking her statins due to elevated liver enzymes. no anticoagulants however does take daily ASA. - History of Current Complaint Chief Complaint: EDExtremityLower Stated Complaint: RT ANKLE INJURY Time Seen by Provider: 01/02/18 12:38 Hx Obtained From: Patient, Family/Motor Equipment Captain - daughter Pain Intensity: 1 - Allergies/Home Medications Allergies/Adverse Reactions: Allergies Allergy/AdvReac Type Severity Reaction Status Date / Time morphine AdvReac Intermediate See Comment Verified 01/02/18 12:35 Home Medications: Home Medications Aspirin EC TAB* [Ecotrin EC Low Dose 81 MG*] 81 mg PO DAILY 01/02/18 [History Confirmed 01/02/18] Cholecalciferol (Vitamin D3) [Vitamin D-3] 2,000 unit PO DAILY 01/02/18 [ History Confirmed 01/02/18] Chromium Picolinate 200 mcg PO DAILY 01/02/18 [History Confirmed 01/02/18] DULoxetine DR CAP* [Cymbalta CAP*] 60 mg PO DAILY 01/02/18 [History Confirmed ] Diclofenac 1% GEL (NF) [Voltaren 1% GEL (NF)] 1 applic TOPICAL DAILY PRN [History Confirmed 01/02/18] Docusate CAP* [Colace Cap*] 100 mg PO .BID-TID PRN 01/02/18 [History Confirmed 01/02/18] Levothyroxine TAB* [Synthroid TAB*] 50 mcg PO DAILY 01/02/18 [History Confirmed 01/02/18] Lidocaine PATCH 5%* [Lidoderm 5% Patch*] 1 patch TRANSDERM DAILY 01/02/18 [ History Confirmed 01/02/18] Magnesium Oxide TAB* [MagOx 400 TAB*] 400 mg PO DAILY 01/02/18 [History Confirmed 01/02/18] Metoprolol Tartrate TAB* [Lopressor TAB*] 12.5 mg PO QAM 01/02/18 [History Confirmed 01/02/18] Metoprolol Tartrate TAB* [Lopressor TAB*] 25 mg PO QPM 01/02/18 [History Confirmed 01/02/18] Naproxen TAB* [Naprosyn 250 mg TAB*] 500 mg PO BID 01/02/18 [History Confirmed 01/02/18] Nitroglycerin TAB 0.4 MG* 0.4 mg SL Q5M PRN 01/02/18 [History Confirmed 01/02/18 ] amLODIPine TAB* [Norvasc 5 mg TAB*] 2.5 mg PO DAILY 01/02/18 [History Confirmed 01/02/18] busPIRone TAB* [Buspar TAB*] 7.5 mg PO BID 01/02/18 [History Confirmed 01/02/18] dilTIAZem HCl [Diltiazem ER] 120 mg PO DAILY 01/02/18 [History Confirmed ] traMADol TAB* [Ultram*] 50 mg PO Q6HR PRN 01/02/18 [History Confirmed 01/02/18] PMH/Surg Hx/FS Hx/Imm Hx Previously Healthy: Yes Endocrine/Hematology History: Reports: Hx Diabetes - II - PO meds - poorly controlled, Hx Thyroid Disease - HYPOTHYROIDISM Cardiovascular History: Reports: Hx Angina, Hx Hypercholesterolemia, Hx Hypertension, Hx Valvular Heart Disease - mild tricuspid and mitral insufficiency, Denies: Hx Pacemaker/ICD Comment Only: Hx Myocardial Infarction - unsure,one thought she had a silent one, Other Cardiovascular Problems/Disorders - 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 MORELAND Respiratory History: Reports: Hx Asthma - HX OF, NO INHALERS, NONE NOW, Hx Sleep Apnea - cpap use Denies: Hx Chronic Obstructive Pulmonary Disease (COPD) GI History: Reports: Hx Gastroesophageal Reflux Disease - ON MEDICATION, Other GI Disorders - gallstones, no symptoms History: Reports: Other Problems/Disorders - HX OF CYSTOCELE AND RETROCELE Denies: Hx Renal Disease Musculoskeletal History: Reports: Hx Arthritis - BILATERAL KNEE AND FINGERS, SPINE, Lt hip, Hx Back Problems - Laminenctomy, Hx Fibromyalgia, Other Musculoskeletal History - pending Lt hip replacement - follows w/ [facility] Sensory History: Reports: Hx Cataracts - BILATERAL, Hx Contacts or Glasses, Other Sensory Impairments - Numbness to left side of face s/p left parotid gland removal Denies: Hx Hearing Aid Opthamlomology History: Reports: Hx Cataracts - BILATERAL, Hx Contacts or Glasses, Other Sensory Impairments - Numbness to left side of face s/p left parotid gland removal Neurological History: Reports: Hx Headaches - hx of, Hx Migraine Psychiatric History: Reports: Hx Anxiety, Hx Depression Denies: Hx Panic Disorder - Cancer History Hx Chemotherapy: No Hx Radiation Therapy: No - Surgical History Surgery Procedure, Year, and Place: hysterectomy/cysto rectocele surgery,lumbar disk surgery, bladder repair, left parotid gland removal, cystocele repair, CATARACT Hx Anesthesia Reactions: No - Immunization History Date of Tetanus Vaccine: >10 yrs Date of Influenza Vaccine: >10yrs Infectious Disease History: No Infectious Disease History: Denies: Hx Clostridium Difficile, Hx Hepatitis, Hx Human Immunodeficiency Virus (HIV), Hx of Known/Suspected MRSA, Hx Shingles, Hx Tuberculosis, History Other Infectious Disease, Traveled Outside the [place] in Last 30 Days - Family History Known Family History: Positive: Unknown - Due to patient being a poor historian. - Social History Alcohol Use: Rare Alcohol Amount: 1-2 DRINKS A MONTH Substance Use Type: Reports: None Smoking Status (MU): Never Smoked Tobacco Have You Smoked in the Last Year: No Review of Systems Constitutional: Negative Negative: Fever, Chills, Fatigue Respiratory: Negative Gastrointestinal: Negative Positive: no symptoms reported Positive: Arthralgia, Myalgia, Decreased ROM Skin: Negative Neurological: Negative Psychological: Normal All Other Systems Reviewed And Are Negative: Yes Physical Exam Triage Information Reviewed: Yes Vital Signs On Initial Exam: Initial Vitals Temp Pulse Resp BP Pulse Ox 97.9 F 70 18 162/83 97 01/02/18 12:32 01/02/18 12:32 01/02/18 12:32 01/02/18 12:32 01/02/18 12:32 Vital Signs Reviewed: Yes Appearance: Positive: Well-Appearing, No Pain Distress - at rest, Well-Nourished Skin: Positive: Warm, Skin Color Reflects Adequate Perfusion, Dry - no ecchymosis over affected area Head/Face: Positive: Normal Head/Face Inspection Eyes: Positive: EOMI ENT: Positive: Hearing grossly normal Cardiovascular: Positive: Pulses are Symmetrical in both Upper and Lower Extremities, Leg Edema Right - tissue over Rt posterior ankle appears edematous compared to Lt Musculoskeletal: Positive: Limited @ - + Vaca test, Pain @ - Rt posterior ankle and calf TTP Neurological: Positive: Normal, Sensory/Motor Intact, Alert, Oriented to Person Place, Time, CN Intact II-III Psychiatric: Positive: Normal Procedures - Splinting Right Lower Extremity Location: Rt LE Hand-Made Type: fiberglass Splint: short posterior in equine position Pre-Proc Neuro Vasc Exam: normal Post-Proc Neuro Vasc Exam: normal Diagnostics - Vital Signs Vital Signs Temp Pulse Resp BP Pulse Ox 01/02/18 12:32 97.9 F 70 18 162/83 97 - Laboratory Lab Statement: Any lab studies that have been ordered have been reviewed, and results considered in the medical decision making process. Lower Extremity Course/Dx - Course Course Of Treatment: Clincial dx of achilles tendon rupture, Rt. Discussed w/ ortho - short leg equine splint and f/u today or tomorrow with ortho. Pt is unable to use crutches however she has a walker at home. Also requesting knee scooter as alternative. - Diagnoses Provider Diagnoses: Rupture of right Achilles tendon Discharge - Sign-Out/Discharge Documenting (check all that apply): Patient Departure - Discharge Plan Condition: Stable Disposition: HOME Patient Education Materials: Achilles Tendon Rupture (ED), Splint Care (ED) Referrals: Og Stephens MD [Medical Doctor] - Additional Instructions: REST, ICE, ELEVATE AND KEEP SPLINT CLEAN, DRY AND IN PLACE UNTIL SEEN BY ORTHOPEDICS. Call today for appointment today or tomorrow. No weight bearing until cleared by orthopedics. Use walker or knee scooter - prescription for scooter provided today - if not approved, discuss with orthopedics. You may take ibuprofen alternating with acetaminophen as needed for pain. *If you develop numbness, tingling, weakness, swelling or skin discoloration, loosen BRUNA wrap and elevate leg for 20 minutes. If symptoms persist, return to ED - Billing Disposition and Condition Condition: STABLE Disposition: Home
[2018-01-02 15:49] VITALS: BP 159/94
[2018-01-02] MEDS ORDERED: Ibuprofen TAB* 600 MG PO ONE (16:06)
== END 2018-01-02 16:15 | disposition home or self-care (01) ==
LOC: ED 12:31
DX: S86.011A Strain of right Achilles tendon, initial encounter (principal); X58.XXXA Exposure to other specified factors, initial encounter; Y93.01 Activity, walking, marching and hiking; Y92.9 Unspecified place or not applicable; E11.9 Type 2 diabetes mellitus without complications; Z79.84 Long term (current) use of oral hypoglycemic drugs; E03.9 Hypothyroidism, unspecified; I20.9 Angina pectoris, unspecified; I10 Essential (primary) hypertension; K21.9 Gastro-esophageal reflux disease without esophagitis; Z88.5 Allergy status to narcotic agent
CPT/HCPCS: 99282; A9270-GY

== ENCOUNTER 2018-07-23 18:56 | Emergency (ER) | payer MEDICARE ==
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
[2018-07-23 19:25] LABS: ABS Basophils 0.1 10^3/ul (0-0.2); ABS Eosinophils 0.2 10^3/ul (0-0.6); ABS Lymphocytes 1.1 10^3/ul (1.0-4.8); ABS Monocytes 0.4 10^3/ul (0-0.8); Eosinophil % 3.6 %; Hematocrit 39 % (35-47); Hemoglobin 12.8 g/dL (12.0-16.0); Lymphocyte % 16.8 %; Mean Corpuscular HGB Conc 33 g/dL (31-36); Mean Corpuscular Hemoglobin 26 pg (27-31); Mean Corpuscular Volume 79 fL (80-97); Mean Platelet Volume 8.6 fL (7.4-10.4); Platelet Count 200 10^3/uL (150-450); Red Blood Count 4.98 10^6 /uL (3.70-4.87); Red Cell Distribution Width 15 % (10-15); White Blood Count 6.8 10^3/uL (3.5-10.8)
--- OUTSIDE RECORDS SUMMARY | 2018-07-23 19:26 | XMS REPORT | Continuity of Care Document ---
:1940 External Reference #:[id number] Author Name Jade Jha Care Team Providers Name Role Phone Carmen Pressley MD Primary Care Physician Unavailable Payers Date Identification Numbers Payment Provider Subscriber Effective: 2013 Policy Number: [id number] Medicare Blue Ppo Pool [employer] Number: [id number] [address] [address] PayID: [id number] TOMAS Rodriguez [id number] Expires: 2008 Policy Number: [id number] Health [facility] April Pool [employer] Group Number: [id number] [address] Group Name: [place] [address] Effective: 2008 Policy Number: [facility] Pool [place] [id number] Expires: 2009 PayID: [id number] [address] [place] [address] Effective: 2009 Policy Number: [facility] Today Pool [employer] [id number] Options Expires: 2013 PayID: [id number] [address] [address] Attn: [place] [address] Problems Active Problems Provider Date Chest pain Papa Dahl M.D. Onset: 10/26/2010 Note: saw Dr Davis ; 2 cardiac caths negative (per dtr) Palpitations Neo Davis M.D. Onset: 11/23/2010 Morbid obesity Neo Davis M.D. Onset: 02/27/2012 Type 2 diabetes mellitus Neo Davis M.D. Onset: 02/27/2012 Note: metformin doubled and glipizide added Jan 2018 / Feb 2018; Hypothyroidism Neo Davis M.D. Onset: 02/27/2012 Hyperlipidemia Neo Davis M.D. Onset: 02/26/2013 Dyspnea Neo Davis M.D. Onset: 02/26/2013 Obstructive sleep apnea syndrome Анна Gallego M.D. Onset: 05/07/2013 Spinal stenosis of lumbar region Terrence Gutiérrez M.D. Onset: 06/08/2014 Essential hypertension Neo Davis M.D. Onset: 10/27/2014 Localized, primary osteoarthritis Dayna Forrester M.D. Onset: 12/07/2014 Localized, primary osteoarthritis of Dayna Forrester M.D. Onset: 06/19/2016 the pelvic region and thigh Cholelithiasis without obstruction Talat Ballesteros MD Onset: 10/13/2016 Note: seen on CT Oct 2016 and US Nov 2017 Family History Date Family Member(s) Observation Comments General Heart Disease General Cancer : (age 65 Father due to Lymphoma Years) : (age 89 Mother due to Parkinsons Years) Disease Mother due to () Hypertension Mother due to Leukemia () Mother due to Alzheimer's () Disease Mother due to CHF () Mother due to AK () - silent Mi age 70's Children Children: 3, 1 son and 2 daughters, all alive and well. 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 Tobacco Use Start: Unknown Never Smoked Cigarettes ETOH Use Rarely consumes wine Tobacco Use Start: Unknown Patient has never smoked Recreational Drug Use Denies Drug Use Smoking Status Reviewed: 07/18/18 Patient has never smoked Enjoy Exercising Does not enjoy sheering Otf exercising Trees Exercise Type/Frequency Exercises sporadically Allergies, Adverse Reactions, Alerts Active Allergies Reaction Severity Comments Date Morphine hypotension nauseated 10/26/2010 Inactive Allergies NKDA 07/28/2003 Medications Active Medications SIG Qnty Indications Ordering Date Provider Char CONLEY 1 by mouth 90caps Qutaybeh S. 11/22/2017 120mg Caps ER 24HR every day Magkarla MSrtuhiDSruthi Amoxicillin 4 tabs by mouth 4tabs Dayna Forrester, 02/27/2017 500mg Tablets 1 hour before M.D. dental procedure Metoprolol Tartrate 12.5mg in the 135tabs Qutaybeh S. 02/14/2017 25mg morning, 25mg Maghaydah, Tablets in the evening M.D. Meloxicam 1 by mouth 60tabs Dayna Forrester, 06/19/2016 15mg Tablets every day M.D. Magnesium Oxide 500mg daily 30tabs Qutaybeh S. 01/26/2016 400(240Mg) mg Maghaydah, Tablets M.D. Metformin HCL 2 tablet twice 60tabs Анна Gallego, 07/07/2013 500mg Tablets daily M.D. Freestyle Test Strips test daily or 100units Marnie Pena, 04/23/2013 Strips as needed N.P. Freestyle System Kit check blood Анна Gallego, 04/10/2013 Kit sugar once M.D. daily Nitrostat place one 30tabs R07.9 tayb S. 05/30/2011 0.4mg Tablets Sub tablet under Maghaydah, the tongue M.D. every five minutes for up to 3 doses as needed for chest pain Cymbalta Take One 90caps Papa Ndiaye 01/11/[address] Part Capsule By Jesus Dahl Mouth Every Day Hydrochlorothiazide Take 2 Capsules jozef Ndiaye 05/18/2008 12.5mg By Mouth Every Jesus Dahl Capsules Day Omeprazole 1 by mouth Unknown 20mg Capsules DR every day Glipizide take one tablet Unknown 5mg Tablets by mouth twice a day Duloxetine HCL 1 by mouth Unknown 60mg Caps DR every day Part Diclofenac Sodium prn Unknown 1% Gel Buspirone HCL 1 by mouth Unknown 7.5mg Tablets twice a day Lidocaine apply patch up Unknown 5% Patches to 12 hours once a day. Ventolin HFA 2 puffs by Unknown 108(90Base) mouth four mcg/Act Aerosol times a day as needed Naproxen 1 tab bid Wendie, 500mg Tablets Carmen Epstein MD Chromium GTF once a day Unknown 200mcg Tablets Vitamin D3 1 by mouth Unknown every day Aspirin Ec Low Dose 1 by mouth Unknown 81mg every day Tablets Levothyroxine Sodium take one tablet 30tabs Papa E. 50mcg by mouth rebecca Dahl M.D. Tablets daily History Medications Sulfamethoxazole/Trimethoprim DS take one tab 6tabs Dayna 11/29/2017 - 800-160mg by mouth Jesus Forrester 04/11/2018 Tablets twice a day for 3 days Amlodipine Besylate 1 by mouth 90tabs Neo SSruthi 02/19/2017 - 2.5mg Tablets every day Susan 06/25/2018 Jesus Sulfamethoxazole/Trimethoprim DS take one tab 6tabs Dayna 07/19/2016 - 800-160mg by mouth Jesus Forrester 01/22/2017 Tablets twice a day for 3 days Coumadin 2mg take 1-3 tabs 90tabs Dayna 07/17/2016 - Tablets by mouth at 5 UsamaJesus powers 01/22/2017 at night as directed Oxycodone-Acetaminophen 1-2 tabs by 90tabs Dayna 07/17/2016 - 5-325mg Tablets mouth every Jesus Forrester 01/22/2017 4-6 hours as needed for pain Colace 100mg 1 tab by 90caps Dayna 07/17/2016 - Capsules mouth 2-3 UsamaJesus powers 01/22/2017 times a day as needed Tramadol HCL 1 tablet by 60tabs Dayna 06/19/2016 - 50mg Tablets mouth every 6 Jesus Forrester Unknown hours as needed pain Diltiazem HCL ER 1 by mouth 90caps Danielletagwendolyn SSruthi 01/18/2016 - 120mg Caps ER 12HR every day Susan 11/21/2017 CandiceSruthi Naproxen 500mg 1 by mouth 60tabs M48. Terrence 2014 - Tablets twice a day 06 Marla, 06/19/2016 after meals M.DSruthi (pt states she is taking once or twiced a week) Amlodipine Besylate 1 by mouth 45tabs I10 Qutayb S. 01/08/2014 - 2.5mg Tablets every day at [facility], 01/18/2016 night M.DSruthi Voltaren 1% apply to knee 1tube Dayna 10/15/2013 - Gel three times a Jesus Forrester 12/17/2016 day as needed Celebrex 200mg Take 1 30caps Dayna 10/15/2013 - Capsules Capsule By Jesus Forrester 09/27/2015 Mouth One Time Daily Naproxen 250mg Take 1 tablet 715. Анна Gallego, 2013 - Tablets once to twice 09 M.D. 06/25/2013 daily as needed for pain control Cephalexin take one 40caps 709. Анна Gallego, 07/31/2012 - 500mg Capsules capsule every 9 M.D. 09/04/2012 6 hours for 10 days Cipro 250mg one by mouth 20tabs Papa Ndiaye 06/08/2011 - Tablets twice daily Jesus Dahl 06/27/2011 for 10 days Metoprolol Succinate ER 1 po bid Papa Ndiaye 10/26/2010 - 50mg Tablets ER 24HR Jesus Dahl 10/26/2010 Metoprolol Tartrate 12.5 mg every 180tabs Papa Ndiaye 10/26/2010 - 50mg Tablets morning and Jesus Dahl 02/14/2017 25 mg every night Nitroglycerin 1 sl q5mins 25tabs 786. Papa Ndiaye 09/08/2010 - 0.4mg Tablets Sub x3 prn for 50 Jesus Dahl 05/30/2011 chest pain Cipro 500mg 1 po bid x 7 14tabs 788. Papa Ndiaye 2009 - Tablets days 1 Jesus Dahl 09/07/2010 Cipro 250mg bid for 5 10tabs Gee, 10/19/2008 - Tablets glenn Franco M.D. 05/17/2009 Celebrex 200mg Take One 30caps 715. Papa Ndiaye 2008 - Capsules Capsule By Lorraine Dahl M.D. 05/07/2013 Mouth Every Day as Needed Norvasc 2.5mg 1 po qd wed 30tabs Hai Pinedo 2003 - Tablets thurs fri Jesus Coppola 06/11/200807/28-07/30 Prozac 20mg 1 po qod 30caps Hai Pinedo 07/28/2003 - Capsules Jesus Coppola 10/29/2008 Calan SR 240mg 1/2 po qd Hai Pinedo 07/27/2003 - Tablets Jesus Coppola 02/26/2006 Lopressor 50mg 1 po qd 60tabs Hai Pinedo 07/27/2003 - Tablets Jesus Coppola 06/11/2008 Lasix 20mg 1 po prn 30tabs Hai Pinedo 07/27/2003 - Jemma Coppola M.D. 06/11/2008 Aspirin Enteric Coated qd Hai Pinedo 07/27/2003 - 81mg Tablets Jesus Coppola 11/05/2014 Nexium 40mg Take One 30units Raymond Mcgarry 07/27/2003 - CPDR Capsule By Azalia 05/31/2009 Mouth Daily. Jesus,FACP Omeprazole 1 po qd 30caps Unknown - 20mg Capsules 10/14/2013 Metoprolol Tartrate Take One 60tabs Papa Barajas. - 50mg Tablets Tablet By Jesus Dahl 10/26/2010 Mouth Every Morning And Take One-Half Tablet By Mouth Every Evening Lovastatin Take One 90tabs Papa E. - 20mg Tablets Tablet By Jesus Dahl Unknown Mouth AT Bedtime Celebrex Unknown - 11/25/2013 Prilosec 20mg 1 by mouth Unknown - Tablets DR every day am 07/18/2018 Amlodipine Besylate 1 by mouth 90tabs Qutagwendolyn Chowdary - 2.5mg Tablets every day in [facility], 02/19/2017 the evening M.D. Omeprazole 1 by mouth Unknown - 20mg Capsules DR every day 12/17/2016 Colace 100mg 1 tab by Unknown - Capsules mouth 2-3 Unknown times a day as needed Medications Administered in Office Medication SIG Qnty Indications Ordering Provider Date Depomedrol 80MG Dayna Forrester M.D. 10/15/2013 Injection Immunizations CPT Code Status Date Vaccine Lot # [id number] Given 05/07/2013 Pneumonia Vaccine [id number] Vital Signs Date Vital Result Comment 07/18/2018 9:17am Height 66.50 inches 5'6.50" Weight 231.00 lb Heart Rate 71 /min BP Systolic 153 mmHg BP Diastolic 82 mmHg O2 % BldC Oximetry 97 % BMI (Body Mass Index) 36.7 kg/m2 06/26/2018 2:06pm Height 66.50 inches 5'6.50" Weight 227.00 lb Per Pt Heart Rate 78 /min Radial BP Systolic 160 mmHg Rue reg cuff sit BP Diastolic 110 mmHg Rue reg cuff sit BP Systolic Sitting 150 mmHg Rue reg cuff std BP Diastolic Sitting 96 mmHg Rue reg cuff std BP Systolic Standing 160 mmHg Lue reg cuff sit BP Diastolic Standing 102 mmHg Lue reg cuff sit BP Systolic Lying Down 160 mmHg Lue reg cuff std BP Diastolic Lying Down 100 mmHg Lue reg cuff std BP Systolic Recheck 183 mmHg Home Unit Wrist Unit Lt BP Diastolic Recheck 103 mmHg Home Unit Wrist Unit Lt BMI (Body Mass Index) 36.1 kg/m2 Ejection Fraction 55-60% Echo 09/07/16 04/12/2018 10:30am Height 66.50 inches 5'6.50" Heart Rate 80 /min 67 home unit BP Systolic 144 mmHg LA, large BP Diastolic 84 mmHg LA, large BP Systolic Sitting 144 mmHg Ra, large BP Diastolic Sitting 86 mmHg Ra, large BP Systolic Standing 138 mmHg LA, large BP Diastolic Standing 82 mmHg LA, large BP Systolic Recheck 188 mmHg home unit BP Diastolic Recheck 91 mmHg home unit 04/02/2018 11:11am Height 66.50 inches 5'6.50" Heart Rate 64 /min BP Systolic 146 mmHg BP Diastolic 84 mmHg Body Temperature 97.0 F Pain Level 0 03/22/2018 4:46pm Height 66.50 inches 5'6.50" Weight 230.00 lb Heart Rate 84 /min BP Systolic 137 mmHg BP Diastolic 91 mmHg Respiratory Rate 18 /min Body Temperature 96.2 F O2 % BldC Oximetry 97 % BMI (Body Mass Index) 36.6 kg/m2 01/22/2018 8:45am Height 66.50 inches 5'6.50" Heart Rate 96 /min BP Systolic 128 mmHg BP Diastolic 78 mmHg Body Temperature 97.3 F Pain Level 0 01/03/2018 11:37am Height 66.50 inches 5'6.50" Heart Rate 80 /min BP Systolic 142 mmHg BP Diastolic 90 mmHg Body Temperature 97.1 F Pain Level 5 11/26/2017 2:18pm Height 66.5 inches 5'6.50" Weight 232.00 lb Heart Rate 72 /min BP Systolic 140 mmHg BP Diastolic 82 mmHg BMI (Body Mass Index) 36.9 kg/m2 11/12/2017 9:38am Height 66.5 inches 5'6.50" Weight 231.00 lb Heart Rate 64 /min BP Systolic 130 mmHg BP Diastolic 78 mmHg BMI (Body Mass Index) 36.7 kg/m2 11/07/2017 4:08pm Height 67 inches 5'7" Weight 230.75 lb Heart Rate 60 /min BP Systolic 120 mmHg BP Diastolic 70 mmHg BMI (Body Mass Index) 36.1 kg/m2 Ejection Fraction 55-60% closer to 55%. echo 09/07/16 02/14/2017 3:53pm Height 67 inches 5'7" Weight 236.25 lb Heart Rate 68 /min BP Systolic Sitting 166 mmHg BP Diastolic Sitting 86 mmHg BMI (Body Mass Index) 37.0 kg/m2 Ejection Fraction 50%-55% echo 09/07/16 12/18/2016 1:46pm Height 67 inches 5'7" Weight 229.00 lb Heart Rate 77 /min BP Systolic 151 mmHg BP Diastolic 90 mmHg Body Temperature 97.8 F BMI (Body Mass Index) 35.9 kg/m2 10/20/2016 11:32am Height 67 inches 5'7" Weight 222.00 lb Heart Rate 68 /min BP Systolic 139 mmHg BP Diastolic 70 mmHg BMI (Body Mass Index) 34.8 kg/m2 09/07/2016 1:06pm Height 66.25 inches 5'6.25" Weight 221.00 lb with shoes Heart Rate 74 /min BP Systolic Sitting 138 mmHg Ra lrg cuff BP Diastolic Sitting 84 mmHg Ra lrg cuff BMI (Body Mass Index) 35.4 kg/m2 Ejection Fraction 55% stress echo 02/01/16 09/04/2016 1:29pm Height 66.25 inches 5'6.25" Weight 216.00 lb Heart Rate 80 /min BP Systolic 140 mmHg BP Diastolic 90 mmHg Respiratory Rate 18 /min Body Temperature 97.4 F Pain Level 4 BMI (Body Mass Index) 34.6 kg/m2 08/22/2016 3:44pm Height 66.25 inches 5'6.25" Weight 216.00 lb Heart Rate 71 /min Respiratory Rate 16 /min Pain Level 2 BMI (Body Mass Index) 34.6 kg/m2 08/04/2016 2:47pm Height 66.25 inches 5'6.25" Weight 230.00 lb Heart Rate 89 /min BP Systolic 162 mmHg BP Diastolic 79 mmHg Body Temperature 98.0 F BMI (Body Mass Index) 36.8 kg/m2 07/17/2016 11:19am Height 66.25 inches 5'6.25" Weight 230.00 lb Heart Rate 66 /min BP Systolic 144 mmHg BP Diastolic 80 mmHg Body Temperature 97.4 F BMI (Body Mass Index) 36.8 kg/m2 06/29/2016 11:01am Height 66.25 inches 5'6.25" Weight 227.00 lb w/shoes Heart Rate 66 /min BP Systolic Sitting 146 mmHg LA lg cuff BP Diastolic Sitting 92 mmHg LA lg cuff BMI (Body Mass Index) 36.4 kg/m2 Ejection Fraction 55% Stress Echo 02/01/16 06/19/2016 10:21am Height 66.25 inches 5'6.25" Weight 232.00 lb Heart Rate 66 /min BP Systolic 150 mmHg BP Diastolic 96 mmHg Respiratory Rate 12 /min Pain Level 4 BMI (Body Mass Index) 37.2 kg/m2 01/26/2016 11:02am Height 67 inches 5'7" Weight 227.00 lb w/o shoes Heart Rate 78 /min BP Systolic Sitting 158 mmHg LA lrg cuff BP Diastolic Sitting 98 mmHg LA lrg cuff BMI (Body Mass Index) 35.5 kg/m2 Ejection Fraction 55% - 60% echo 11/04/15 11/08/2015 3:15pm Height 67 inches 5'7" Weight 224.00 lb with shoes Heart Rate 60 /min BP Systolic Sitting 130 mmHg LA lg cuff BP Diastolic Sitting 70 mmHg LA lg cuff Respiratory Rate 16 /min BMI (Body Mass Index) 35.1 kg/m2 Ejection Fraction 55-60% date 10/29/15 echo 09/28/2015 2:34pm Height 67 inches 5'7" Weight 223.00 lb with sandals Heart Rate 60 /min BP Systolic Sitting 122 mmHg La reg cuff BP Diastolic Sitting 74 mmHg La reg cuff Respiratory Rate 16 /min BMI (Body Mass Index) 34.9 kg/m2 Ejection Fraction 55-60% date 12/12/13 12/07/2014 10:48am Height 67 inches 5'7" Weight 237.00 lb Pain Level 2 BMI (Body Mass Index) 37.1 kg/m2 10/27/2014 4:00pm Height 67 inches 5'7" Weight 233.00 lb w/shoes Heart Rate 62 /min BP Systolic Sitting 130 mmHg LA reg cuff BP Diastolic Sitting 84 mmHg LA reg cuff BMI (Body Mass Index) 36.5 kg/m2 Ejection Fraction 55-60 echo 12/12/13 07/06/2014 10:50am Height 67 inches 5'7" Weight 236.00 lb Heart Rate 62 /min BP Systolic Standing 140 mmHg BP Diastolic Standing 90 mmHg Pain Level 1 back BMI (Body Mass Index) 37.0 kg/m2 06/08/2014 11:02am Height 67 inches 5'7" Weight 234.00 lb Heart Rate 60 /min BP Systolic Sitting 150 mmHg BP Diastolic Sitting 80 mmHg Pain Level 1 back BMI (Body Mass Index) 36.6 kg/m2 03/04/2014 2:30pm Height 66.75 inches 5'6.75" Weight 232.75 lb Heart Rate 80 /min BP Systolic Sitting 122 mmHg LA, reg BP Diastolic Sitting 82 mmHg LA, reg BMI (Body Mass Index) 36.7 kg/m2 01/08/2014 12:52pm Height 66.75 inches 5'6.75" Weight 231.31 lb no shoes Heart Rate 60 /min BP Systolic Sitting 138 mmHg LA, Lg cuff BP Diastolic Sitting 94 mmHg LA, Lg cuff BP Systolic Standing 130 mmHg LA BP Diastolic Standing 94 mmHg LA Respiratory Rate 16 /min BMI (Body Mass Index) 36.5 kg/m2 11/26/2013 3:29pm Height 66.75 inches 5'6.75" Weight 230.50 lb Heart Rate 60 /min BP Systolic Sitting 170 mmHg LA lg cuff BP Diastolic Sitting 84 mmHg LA lg cuff Respiratory Rate 14 /min BMI (Body Mass Index) 36.4 kg/m2 10/15/2013 2:27pm Height 66.75 inches 5'6.75" Weight 230.00 lb Heart Rate 64 /min BP Systolic 128 mmHg BP Diastolic 87 mmHg BMI (Body Mass Index) 36.3 kg/m2 06/25/2013 1:01pm Height 66.75 inches 5'6.75" Weight 235.25 lb Heart Rate 60 /min BP Systolic 136 mmHg BP Diastolic 88 mmHg Respiratory Rate 16 /min Body Temperature 96.2 F BMI (Body Mass Index) 37.1 kg/m2 05/07/2013 2:03pm Height 66.25 inches 5'6.25" Weight 232.00 lb Heart Rate 64 /min BP Systolic 134 mmHg BP Diastolic 82 mmHg O2 % BldC Oximetry 94 % 92 with exertion BMI (Body Mass Index) 37.2 kg/m2 03/07/2013 2:38pm Weight 233.75 lb Heart Rate 64 /min BP Systolic Sitting 130 mmHg BP Diastolic Sitting 70 mmHg 02/26/2013 2:40pm Height 65.5 inches 5'5.50" Weight 232.00 lb Heart Rate 84 /min BP Systolic Sitting 146 mmHg BP Diastolic Sitting 90 mmHg Respiratory Rate 16 /min BMI (Body Mass Index) 38.0 kg/m2 09/04/2012 3:52pm Weight 233.00 lb Heart Rate 68 /min BP Systolic Sitting 124 mmHg BP Diastolic Sitting 80 mmHg 07/31/2012 4:04pm Weight 234.75 lb Heart Rate 68 /min BP Systolic Sitting 124 mmHg BP Diastolic Sitting 90 mmHg Body Temperature 96.0 F 02/27/2012 10:27am Height 66.5 inches 5'6.50" Weight 232.00 lb Heart Rate 60 /min BP Systolic Sitting 140 mmHg BP Diastolic Sitting 80 mmHg Respiratory Rate 16 /min BMI (Body Mass Index) 36.9 kg/m2 02/01/2012 3:54pm Height 66.5 inches 5'6.50" Weight 235.00 lb Heart Rate 64 /min BP Systolic Sitting 150 mmHg BP Diastolic Sitting 86 mmHg BMI (Body Mass Index) 37.4 kg/m2 06/27/2011 3:59pm Height 66.5 inches 5'6.50" Weight 232.50 lb Heart Rate 61 /min BP Systolic Sitting 134 mmHg BP Diastolic Sitting 75 mmHg Body Temperature 98.3 F BMI (Body Mass Index) 37.0 kg/m2 11/23/2010 2:55pm Height 67 inches 5'7" Weight 239.00 lb Heart Rate 52 /min BP Systolic 130 mmHg BP Diastolic 90 mmHg BP Systolic Sitting 134 mmHg BP Diastolic Sitting 92 mmHg BP Systolic Standing 140 mmHg BP Diastolic Standing 90 mmHg Respiratory Rate 16 /min BMI (Body Mass Index) 37.4 kg/m2 10/26/2010 3:11pm Height 66.5 inches 5'6.50" Weight 235.75 lb Heart Rate 72 /min BP Systolic Sitting 144 mmHg BP Diastolic Sitting 82 mmHg BMI (Body Mass Index) 37.5 kg/m2 09/08/2010 3:13pm Weight 233.00 lb Heart Rate 76 /min BP Systolic Sitting 150 mmHg BP Diastolic Sitting 84 mmHg BMI (Body Mass Index) 3.0 kg/m2 08/17/2010 2:31pm Weight 236.00 lb Heart Rate 82 /min BP Systolic Sitting 138 mmHg BP Diastolic Sitting 78 mmHg Body Temperature 96.2 F lt ear 12/20/2009 4:53pm Weight 228.00 lb Heart Rate 60 /min BP Systolic Sitting 142 mmHg BP Diastolic Sitting 84 mmHg 05/31/2009 3:11pm Weight 232.00 lb Heart Rate 62 /min BP Systolic 120 mmHg BP Diastolic 78 mmHg 10/29/2008 3:26pm Weight 238.00 lb Heart Rate 76 /min BP Systolic Sitting 120 mmHg BP Diastolic Sitting 70 mmHg Body Temperature 98.5 F 07/15/2008 8:43am Height 67 inches 5'7" Weight 237.00 lb Heart Rate 72 /min BP Systolic Sitting 142 mmHg BP Diastolic Sitting 80 mmHg Body Temperature 97.7 F BMI (Body Mass Index) 37.1 kg/m2 06/11/2008 10:03am Height 67 inches 5'7" Weight 237.00 lb Heart Rate 60 /min BP Systolic Sitting 148 mmHg BP Diastolic Sitting 80 mmHg BMI (Body Mass Index) 37.1 kg/m2 09/26/2007 10:24am Height 67 inches 5'7" Weight 238.00 lb Heart Rate 66 /min BP Systolic Sitting 110 mmHg BP Diastolic Sitting 70 mmHg BMI (Body Mass Index) 37.3 kg/m2 07/28/2003 2:03pm Height 67 inches 5'7" Weight 221.00 lb Heart Rate 60 /min BP Systolic Sitting 124 mmHg left arm, right arm 120/70 BP Diastolic Sitting 80 mmHg left arm, right arm 120/70 BP Systolic Standing 112 mmHg BP Diastolic Standing 78 mmHg BMI (Body Mass Index) 34.6 kg/m2 Results Test Date Facility Test Result H/L Range Note Inr/Protime 11/27/2017 [facility] Inr [address] [place] [address] [phone] Laboratory test 11/27/2017 [facility] Partial 28.9 seconds N 26.0-36.[address] [place] [address] PTT [phone] CBC Auto Diff 11/27/2017 [facility] White Blood 6.0 10^3/uL N 3.5-10.8 [place] [address] [phone] Red Blood Count 5.07 10^6/uL N 4.00-5.40 Hemoglobin 13.2 g/dL N 12.0-16.0 Hematocrit 41 % N 35-47 Mean Corpuscular Volume 81 fL N 80-97 Mean Corpuscular Hemoglobin 26 pg Low 27-31 Mean Corpuscular HGB Conc 32 g/dL N 31-36 Red Cell Distribution Width 15 % N 10.5-15 Platelet Count 204 10^3/uL N 150-450 Mean Platelet Volume 8.7 um3 N 7.4-10.4 Abs Neutrophils 3.7 10^3/uL N 1.5-7.7 Abs Lymphocytes 1.5 10^3/uL N 1.0-4.8 Abs Monocytes 0.4 10^3/uL N 0-0.8 Abs Eosinophils 0.4 10^3/uL N 0-0.6 Abs Basophils 0 10^3/uL N 0-0.2 Abs Nucleated RBC 0 10^3/uL Granulocyte % 61.4 % N 38-83 Lymphocyte % 25.6 % N 25-47 Monocyte % 6.7 % N 0-7 Eosinophil % 5.9 % N 0-6 Basophil % 0.4 % N 0-2 Nucleated Red Blood Cells % 0.1 Urinalysis Profile 11/27/2017 [facility] Urine Color Yellow [address] [place] [address] [phone] Urine Appearance Cloudy Urine Specific [place] 1.015 N 1.010-1.030 Urine pH 6.0 N 5-9 Urine Urobilinogen Negative Negative Urine Ketones Negative Negative Urine Protein Negative Negative Urine Leukocytes Trace Abnormal Negative Urine Blood Negative Negative Urine Nitrite Negative Negative Urine Bilirubin Negative Negative Urine Glucose 1+(50 mg/dL) Abnormal Negative Urine White Blood Cell Trace(0-5/hpf) Absent Urine Red Blood Cell Absent Absent Urine Bacteria 2+ Abnormal Absent Urine Squamous Epithelial Cell Present Abnormal Absent Type & Screen 11/27/2017 [facility] Patient Blood Type A Positive [address] [place] [address] [phone] Antibody Screen NEGATIVE Urine Culture And 11/27/2017 [facility] Urine SEE RESULT [address] [place] [address] [phone] Inr/Protime 08/17/2016 [facility] Inr 1.25 High 0.89- [address] [place] [address] [phone] Inr/Protime 08/14/2016 [facility] Inr 2.00 High 0.89- [address] [place] [address] [phone] Inr/Protime 08/10/2016 [facility] Inr 1.72 High 0.89- [address] [place] [address] [phone] Urine Culture And 07/17/2016 [facility] Urine SEE RESULT [address] [place] [address] [phone] Type & Screen 07/17/2016 [facility] Patient A Positive N [address] [place] [address] [phone] Antibody Screen NEGATIVE N CBC No Diff 07/17/2016 [facility] White Blood 6.3 10^3/uL N 3.5-10.[address] [place] [address] [phone] Red Blood Count 4.97 10^6/uL N 4.0-5.4 Hemoglobin 12.5 g/dL N 12.0-16.0 Hematocrit 39 % N 35-47 Mean Corpuscular Volume 79 fL Low 80-97 Mean Corpuscular Hemoglobin 25 pg Low 27-31 Mean Corpuscular HGB Conc 32 g/dL N 31-36 Red Cell Distribution Width 15 % N 10.5-15 Platelet Count 204 10^3/uL N 150-450 Mean Platelet Volume 9 um3 N 7.4-10.4 Laboratory test 07/17/2016 [facility] Partial 28.7 seconds N 26.0-36.3 finding [address] [place] [address] PTT [phone] Inr/Protime 07/17/2016 [facility] Inr 0.90 N 0.89-1.[address] [place] [address] [phone] Comp Metabolic 07/17/2016 [facility] Sodium 136 mmol/L N 133- [address] [place] [address] [phone] Potassium 4.0 mmol/L N 3.5-5.0 Chloride 99 mmol/L Low 101-111 Co2 Carbon Dioxide 30 mmol/L N 22-32 Anion Gap 7 mmol/L N 2-11 Glucose 138 mg/dL High 70-100 Blood Urea Nitrogen 19 mg/dL N 6-24 Creatinine 1.19 mg/dL High 0.51-0.95 BUN/Creatinine Ratio 16.0 N 8-20 Calcium 9.7 mg/dL N 8.6-10.3 Total Protein 7.0 g/dL N 6.4-8.9 Albumin 4.1 g/dL N 3.2-5.2 Globulin 2.9 g/dL N 2-4 Albumin/Globulin Ratio 1.4 N 1-3 Total Bilirubin 0.40 mg/dL N 0.2-1.0 Alkaline Phosphatase 53 U/L N 34-104 Alt 56 U/L High 7-52 Ast 51 U/L High 13-39 Egfr Non- 43.9 N >60 Egfr 56.4 N >60 7 Urinalysis Profile 07/17/2016 [facility] Urine Color Yellow [address] [place] [address] [phone] Urine Appearance Clear N Urine Specific [place] 1.014 N 1.010-1.030 Urine pH 6.0 N 5-9 Urine Urobilinogen Negative N Negative Urine Ketones Negative N Negative Urine Protein Negative N Negative Urine Leukocytes Negative N Negative Urine Blood Negative N Negative Urine Nitrite Negative N Negative Urine Bilirubin Negative N Negative Urine Glucose Negative N Negative Laboratory test 01/26/2016 [facility] Magnesium 1.7 mg/dL Low 1.9-2.7 [address] [place] [address] [phone] TSH (Thyroid Stim Horm) 3.20 mcIU/mL N 0.34-5.60 9 Basic Metabolic Panel 01/26/2016 [facility] Sodium 137 mmol/L N 133-[address] [place] [address] [phone] Potassium 4.3 mmol/L N 3.5-5.0 Chloride 100 mmol/L Low 101-111 Co2 Carbon Dioxide 31 mmol/L N 22-32 Anion Gap 6 mmol/L N 2-11 Glucose 132 mg/dL High 70-100 Blood Urea Nitrogen 18 mg/dL N 6-24 Creatinine 1.06 mg/dL High 0.51-0.95 BUN/Creatinine Ratio 17.0 N 8-20 Calcium 9.5 mg/dL N 8.6-10.3 Egfr Non- 50.1 N >60 Egfr 64.5 N >60 10 CBC Auto Diff 09/27/2015 [facility] White Blood 4.6 10^3/uL N 3.5-10.[address] [place] [address] [phone] Red Blood Count 4.87 10^6/uL N 4.0-5.4 Hemoglobin 12.5 g/dL N 12.0-16.0 Hematocrit 39 % N 35-47 Mean Corpuscular Volume 79 fL Low 80-97 Mean Corpuscular Hemoglobin 26 pg Low 27-31 Mean Corpuscular HGB Conc 33 g/dL N 31-36 Red Cell Distribution Width 14 % N 10.5-15 Platelet Count 197 10^3/uL N 150-450 Mean Platelet Volume 9 um3 N 7.4-10.4 Abs Neutrophils 2.7 10^3/uL N 1.5-7.7 Abs Lymphocytes 1.4 10^3/uL N 1.0-4.8 Abs Monocytes 0.4 10^3/uL N 0-0.8 Abs Eosinophils 0.2 10^3/uL N 0-0.6 Abs Basophils 0 10^3/uL N 0-0.2 Abs Nucleated RBC 0.01 10^3/uL N Granulocyte % 58.2 % N 38-83 Lymphocyte % 29.8 % N 25-47 Monocyte % 7.7 % N 1-9 Eosinophil % 3.6 % N 0-6 Basophil % 0.7 % N 0-2 Nucleated Red Blood Cells % 0.1 N Urine Microalbumin 09/27/2015 [facility] Urine Creatinine 158.69 mg/dL N Random [address] [place] [address] [phone] Ur Microalbumin (mg/L) < 15.0 mg/L N Urine Microalbumin/Creatinine TNP ug/mg N <31 11 Laboratory test 09/27/2015 [facility] TSH (Thyroid 3.47 mcIU/mL N 0.34-5.[address] Stim Horm) [place] [address] [phone] Laboratory test 09/27/2015 [facility] Free T4 (Free 0.99 ng/dL N 0.61-1.[address] Thyroxine) [place] [address] [phone] Vitamin D Total 25(Oh) 36.7 ng/mL N 30-50 Lipid Profile 09/27/2015 [facility] Triglycerides 143 mg/dL N 12 (Trig/Chol/HDL) [address] [place] [address] [phone] Cholesterol 146 mg/dL N 13 HDL Cholesterol 40.1 mg/dL N 14 LDL Cholesterol 77 mg/dL N 15 Comp Metabolic Panel 09/27/2015 [facility] Sodium 137 mmol/L N 133-145 [address] [place] [address] [phone] Potassium 4.0 mmol/L N 3.5-5.0 Chloride 100 mmol/L Low 101-111 Co2 Carbon Dioxide 31 mmol/L N 22-32 Anion Gap 6 mmol/L N 2-11 Glucose 113 mg/dL High 70-100 Blood Urea Nitrogen 25 mg/dL High 6-24 Creatinine 1.20 mg/dL High 0.51-0.95 BUN/Creatinine Ratio 20.8 High 8-20 Calcium 9.2 mg/dL N 8.6-10.3 Total Protein 6.7 g/dL N 6.4-8.9 Albumin 3.9 g/dL N 3.2-5.2 Globulin 2.8 g/dL N 2-4 Albumin/Globulin Ratio 1.4 N 1-3 Total Bilirubin 0.40 mg/dL N 0.2-1.0 Alkaline Phosphatase 41 U/L N 34-104 Alt 27 U/L N 7-52 Ast 28 U/L N 13-39 Egfr Non- 43.6 N >60 Egfr 56.0 N >60 16 Basic Metabolic Panel 07/04/2013 [facility] Sodium 138 mmol/L N 133-[address] [place] [address] [phone] Potassium 3.6 mmol/L Low 3.7-5.6 Chloride 102 mmol/L N 101-111 Co2 Carbon Dioxide 30 mmol/L N 22-32 Anion Gap 6 mmol/L N 2-11 Glucose 143 mg/dL High 70-100 Blood Urea Nitrogen 21 mg/dL N 6-24 Creatinine 1.05 mg/dL High 0.51-0.95 BUN/Creatinine Ratio 20.0 N 8-20 Calcium 9.5 mg/dL N 8.6-10.3 Egfr Non- 51.1 N >60 Egfr 65.7 N >60 17 Laboratory test 05/07/2013 [facility] Hemoglobin A1c 7.1 High 5-7 finding Laboratory test 03/07/2013 [facility] TSH (Thyroid 3.95 0.34- 5.[address] Stimulating Horm) miu/[place] [address] [phone] Laboratory test 03/06/2013 [facility] Hemoglobin A1c 7.1 % High Less than [address] 6[address]0 [place] [address] [phone] Glucose 116 mg/dL High 70-100 19 Urine Microalbumin 03/06/2013 [facility] Ur Microalbumin 6.0 mg/ L [address] (mg/L) [place] [address] [phone] Urine Creatinine 270.9 mg/dL Urine Microalbumin/Creatinine 2.2 Less Than 31 Laboratory test 08/02/2012 [facility] TSH (Thyroid 3.59 0.34- 5.[address] Stimulating Horm) miu/[place] [address] [phone] Lipid Profile 08/02/2012 [facility] Triglycerides 161 mg/dL 40-200 (Trig/Chol/HDL) [address] [place] [address] [phone] Cholesterol 174 mg/dL Less than 200 HDL Cholesterol 45 mg/dL 40-60 21 Cholesterol/HDL Ratio 3.9 Average 1-4.44 LDL Cholesterol 96.8 Less Than 100 22 Protein 08/02/2012 [facility] Albumin 3.11 g/dL 3.0-4.35 Electrophoresis Serum [address] [facility] (Pep) [place] [address] [phone] Alpha 1 Globulins 0.20 g/dL 0.09-0.33 Alpha 2 Globulin 1.16 g/dL 0.59-1.18 Beta Globulin 0.78 g/dL 0.68-1.02 Gamma Globulin 1.05 g/dL 0.76-1.60 Albumin % (Freedom) 49.4 % 46-63 Alpha 1 Globulins % 3.2 % 1.2-5.3 Alpha 2 Globulin % 18.4 % High 9-17 Beta Globulin % 12.4 % 10-16 Gamma Globulin % 16.7 % 12-22 Albumin/Globulin Ratio 1.0 0.9-2.0 Total Protein (Freedom) 6.3 g/dL 6.2-8.1 Spep Comments (SEE NOTE) 23 Laboratory test 08/02/2012 [facility] Vitamin B12 517 pg/mL 180-[address] [place] [address] [phone] Laboratory test 07/31/2012 [facility] In House Hemoglobin A1c 6.2 5-7 finding Laboratory test 02/02/2012 [facility] Troponin I 0 ng/mL 0- 0.06 [address] [place] [address] [phone] CBC Auto Diff 02/01/2012 [facility] White Blood 7.6 4.8-10.8 [facility] Count 10^3/[place] [address] [phone] Red Blood Count 4.86 10^6/uL 4.0-5.4 Hemoglobin 13.2 g/dL 12.0-16.0 Hematocrit 40 % 35-47 Mean Corpuscular Volume 82 fL 80-97 Mean Corpuscular Hemoglobin 27 pg 27-31 Mean Corpuscular HGB Conc 33 g/dL 31-36 Red Cell Distribution Width 13 % 10.5-15 Platelet Count 175 10^3/uL 150-450 Mean Platelet Volume 9 um3 7.4-10.4 Abs Neutrophils 4.8 10^3/uL 1.5-7.7 Abs Lymphocytes 1.9 10^3/uL 1.0-4.8 Abs Monocytes 0.5 10^3/uL 0-0.8 Abs Eosinophils 0.3 10^3/uL 0-0.6 Abs Basophils 0.1 10^3/uL 0-0.2 Abs Nucleated RBC 0 10^3/uL Granulocyte % 63.8 % 38-83 Lymphocyte % 25.3 % 25-47 Monocyte % 6.2 % 1-9 Eosinophil % 3.4 % 0-6 Basophil % 1.3 % 0-2 Nucleated Red Blood Cells % 0 Laboratory test finding 02/01/2012 [facility] Inr 0.94 0.82- 1.17 25 [address] [place] [address] [phone] Activated Partial Thrombo Time 30.8 sec 22.18-37.18 Comp Metabolic Panel 02/01/2012 [facility] Sodium 139 mmol/L 133-145 [address] [place] [address] [phone] Potassium 3.9 mmol/L 3.5-5.0 Chloride 105 mmol/L 101-111 Co2 Carbon Dioxide 28.0 mmol/L 22-32 Anion Gap 6.0 mmol/L 2-11 Glucose 104 mg/dL High 70-100 Blood Urea Nitrogen 14 mg/dL 6-24 Creatinine 1.00 mg/dL 0.50-1.40 BUN/Creatinine Ratio 14.0 8-20 Calcium 8.8 mg/dL 8.1-9.9 Total Protein 6.7 g/dL 6.2-8.1 Albumin 3.6 g/dL 3.2-5.2 Globulin 3.1 g/dL 2-4 Albumin/Globulin Ratio 1.2 1-3 Total Bilirubin 0.4 mg/dL 0.4-1.5 Alkaline Phosphatase 46 U/L 30-110 Alt 43 U/L 14-54 Ast 46 U/L High 12-42 Egfr Non- 54.2 >60 Egfr 69.7 >60 26 Laboratory test 02/01/2012 [facility] Troponin I 0 ng/mL 0- 0.06 [address] [place] [address] [phone] Urinalysis 07/11/2011 [facility] Ua Color YELLOW Yellow W/Microscopic [address] [place] [address] [phone] Appearance-Urine CLEAR Clear Specific [place]-Ur 1.014 1.010-1.030 Esterase-Urine NEGATIVE Negative Nitrite NEGATIVE Negative Grvbgbamhukz-Xo-TXS NEGATIVE Negative Protein-Urine NEGATIVE Negative PH-Urine 7.0 5-9 Blood-Urine NEGATIVE Negative Ketones-Urine NEGATIVE Negative Bilirubin-Ur NEGATIVE Negative Glucose-Urine NEGATIVE Negative WBC-Urine 0-2 0-5 RBC-Urine 0-2 0-2 Mucus Urine SMALL None Epith Cells-Ur FEW None Bacteria-Urine RARE None Amorphous Sed-U FEW None Laboratory test 07/11/2011 [facility] Hemoglobin A1c 6.4 % High Less Than [address]0 [place] [address] [phone] Basic Metabolic 07/11/2011 [facility] Sodium 139 135-[address] mmol/[place] [address] [phone] Potassium 3.9 mmol/L 3.5-5.0 Chloride 104 mmol/L 101-111 Co2 (Carbon Dioxide) 29.0 mmol/L 22-32 Anion Gap 6.0 mmol/L 2-11 29 Glucose 111 mg/dL High 70-100 BUN 9 mg/dL 6-24 Creatinine 0.8 mg/dL 0.50-1.40 One Over Creatinine 1.25 BUN/Creatinine Ratio 11.3 8-20 Calcium 8.4 mg/dL 8.1-9.9 eGFR Non- 70.3 > 60 eGFR 90.4 > 60 30 Laboratory test 07/11/2011 [facility] Erythrocyte Sed 7 MM/HR 0-[address] [place] [address] [phone] Urinalysis 06/07/2011 [facility] Ua Color YELLOW Yellow W/Microscopic [address] [place] [address] [phone] Appearance-Urine CLEAR Clear Specific [place]-Ur 1.017 1.010-1.030 Esterase-Urine 2+ Abnormal Negative Nitrite POSITIVE Abnormal Negative Pxgrbvuqrkex-Cm-FZZ NEGATIVE Negative Protein-Urine NEGATIVE Negative PH-Urine 6.0 5-9 Blood-Urine TRACE Abnormal Negative Ketones-Urine NEGATIVE Negative Bilirubin-Ur NEGATIVE Negative Glucose-Urine NEGATIVE Negative WBC-Urine TNTC Abnormal 0-5 RBC-Urine 0-2 0-2 Epith Cells-Ur RARE None Bacteria-Urine 4+ None Urine Culture & 06/07/2011 [facility] M <SEE [address] NOTE> [place] [address] [phone] Laboratory test 11/24/2010 [facility] TSH 3.29 MIU/ML 0.34-[address] [place] [address] [phone] Thyroxine Free 0.76 ng/dL 0.61-1.24 Comp Metabolic Panel 11/24/2010 [facility] Sodium 137 mmol/L 135-[address] [place] [address] [phone] Potassium 4.3 mmol/L 3.5-5.0 Chloride 98 mmol/L Low 101-111 Co2 (Carbon Dioxide) 32.0 mmol/L 22-32 Anion Gap 7.0 mmol/L 2-11 32 Glucose 99 mg/dL 70-100 BUN 9 mg/dL 6-24 Creatinine 1.0 mg/dL 0.50-1.40 One Over Creatinine 1.00 BUN/Creatinine Ratio 9.0 8-20 Calcium 9.0 mg/dL 8.1-9.9 Total Protein 6.1 GM/DL Low 6.2-8.1 Albumin 3.8 GM/DL 3.2-5.2 Globulin 2.3 GM/DL 2-4 Albumin/Globulin Ratio 1.7 1-3 Bilirubin Total 0.8 mg/dL 0.4-1.5 33 Alkaline Phosphatase 53 U/L 30-110 Alt (SGPT) 43 U/L 14-54 Ast (Sgot) 50 U/L High 12-42 eGFR Non- 54.5 > 60 eGFR 70.1 > 60 34 Comp Metabolic Panel 09/19/2010 Sodium 135 mmol/L 135-145 Potassium 4.0 mmol/L 3.5-5.0 Chloride 97 mmol/L Low 101-111 Co2 (Carbon Dioxide) 31.0 mmol/L 22-32 Anion Gap 7.0 mmol/L 2-11 35 Glucose 123 mg/dL High 70-100 BUN 10 mg/dL 6-24 Creatinine 0.90 mg/dL 0.50-1.40 One Over Creatinine 1.10 BUN/Creatinine Ratio 11.1 8-20 Calcium 8.7 mg/dL 8.1-9.9 Total Protein 6.0 GM/DL Low 6.2-8.1 Albumin 3.6 GM/DL 3.2-5.2 Globulin 2.4 GM/DL 2-4 Albumin/Globulin Ratio 1.5 1-3 Bilirubin Total 0.6 mg/dL 0.4-1.5 36 Alkaline Phosphatase 45 U/L 30-110 Alt (SGPT) 40 U/L 14-54 Ast (Sgot) 43 U/L High 12-42 eGFR Non- 61.5 > 60 eGFR 79.2 > 60 37 Lipid Profile (Trig/Chol/HDL) 09/19/2010 Triglyceride 124 mg/dL 40-200 Cholesterol 162 mg/dL Less Than 200 38 High Density Lipoprotein 43 mg/dL 40-60 39 Cholesterol/HDL Ratio 3.77 AVERAGE 1-4.44 Low Density Lipoprotein 94 mg/dL Less Than 100 40 Laboratory test 09/19/2010 TSH 1.99 MIU/ML 0.34-5.60 finding Urinalysis 08/17/2010 [facility] Ua Color YELLOW Yellow [address] [place] [address] [phone] Appearance-Urine CLEAR Clear Specific [place]-Ur 1.005 Low 1.010-1.030 Esterase-Urine NEGATIVE Negative Nitrite NEGATIVE Negative Yefhybfochjp-[id number]-GGN NEGATIVE Negative Protein-Urine NEGATIVE Negative PH-Urine 8.5 5-9 Blood-Urine NEGATIVE Negative Ketones-Urine NEGATIVE Negative Bilirubin-Ur NEGATIVE Negative Glucose-Urine NEGATIVE Negative Urine Culture & 08/17/2010 [facility] Urine Culture NF1 [address] [place] [address] [phone] CBC Auto Diff 08/17/2010 [facility] White Blood 6.7 CUMM 4.8- 10. [address] Count 8 [place] [address] [phone] Red Cell Count 4.99 CUMM 4.2-5.4 Hemoglobin 13.4 g/dL 12.0-16.0 Hematocrit 41 % 35-47 Mean Corpuscular Volume 82 um3 79-97 Mean Corpuscular Hemoglob 27 pg 27-31 Mean Corpuscular HGB Cone 33 g/dL 32-36 Redcell Distribution WDTH 13 % 10.5-15 Platelet Count 204 CUMM 150-450 Mean Platelet Volume 9.1 um3 7.4-10.4 Gran % 63.2 % 38-83 Lymph % 25.4 % 25-47 Mononuclear % 6.6 % 1-9 Eosinophil % 3.9 % 0-6 Basophil % 0.9 % 0-2 Abs Lymphs 1.7 1.0-4.8 Abs Mononuclear 0.4 0-0.8 Absolute Neutrophil Count 4.3 1.5-7.7 Abs Eosinophils 0.3 0-0.6 Abs Basophils 0.1 0-0.2 Basic Metabolic Panel 08/17/2010 [facility] Sodium 136 mmol/L 135-[address] [place] [address] [phone] Potassium 3.7 mmol/L 3.5-5.0 Chloride 98 mmol/L Low 101-111 Co2 (Carbon Dioxide) 30.0 mmol/L 22-32 Anion Gap 8.0 mmol/L 2-11 42 Glucose 113 mg/dL High 70-100 BUN 11 mg/dL 6-24 Creatinine 0.90 mg/dL 0.50-1.40 One Over Creatinine 1.10 BUN/Creatinine Ratio 12.2 8-20 Calcium 8.9 mg/dL 8.1-9.9 eGFR Non- 61.5 > 60 eGFR 79.2 > 60 43 Laboratory test 12/20/2009 [facility] In House Hemoglobin A1c 6.1 5-7 finding Lipid Profile 06/21/2009 [facility] Triglyceride 121 mg/dL 40 -200 (Trig/Chol/HDL) [address] [place] [address] [phone] Cholesterol 168 mg/dL Less Than 200 44 High Density Lipoprotein 42 mg/dL 40-60 45 Cholesterol/HDL Ratio 4.00 AVERAGE 1-4.44 Low Density Lipoprotein 102 mg/dL High Less Than 100 46 Laboratory test 06/21/2009 [facility] Hemoglobin A1c 6.2 % High Less [address] 6[address]0 [place] [address] [phone] [facility] 06/21/2009 [facility] TSH 1.90 0.34-5.[address] MIU/ML 0 [place] [address] [phone] CBC With 06/21/2009 [facility] White Blood 4.3 CUMM Low 4.8- 10.8 Electronic Diff [address] [place] [address] [phone] Red Cell Count 5.22 CUMM 4.2-5.4 Hemoglobin 13.9 g/dL 12.0-16.0 Hematocrit 42 % 35-47 Mean Corpuscular Volume 81 um3 79-97 Mean Corpuscular Hemoglob 27 pg 27-31 Mean Corpuscular HGB Cone 33 g/dL 32-36 Redcell Distribution WDTH 14 % 10.5-15 Platelet Count 196 CUMM 150-450 Mean Platelet Volume 9.1 um3 7.4-10.4 Gran % 52.1 % 38-83 Lymph % 34.8 % 25-47 Mononuclear % 8.6 % 1-9 Eosinophil % 3.9 % 0-6 Basophil % 0.6 % 0-2 Abs Lymphs 1.5 1.0-4.8 Abs Mononuclear 0.4 0-0.8 Absolute Neutrophil Count 2.2 1.5-7.7 Abs Eosinophils 0.2 0-0.6 Abs Basophils 0 0-0.2 Laboratory test 06/21/2009 [facility] Rheumatoid < 20.0 Less Than finding [address] Factor IU/mL 20 [place] [address] [phone] Laboratory test 06/21/2009 [facility] Erythrocyte Sed 33 MM/HR 0-[address] [place] [address] [phone] C Reactive Protein High Sensit 3.1 mg/L < 7.48 48 Kalee (Antinuclear 06/21/2009 [facility] Antinuclear AB NEGATIVE Negative Antibodies) [address] [place] [address] [phone] Comp Metabolic 06/21/2009 [facility] Sodium 139 mmol/L 135- [address] [place] [address] [phone] Potassium 3.9 mmol/L 3.5-5.0 Chloride 103 mmol/L 101-111 Co2 (Carbon Dioxide) 29.0 mmol/L 22-32 Anion Gap 7.0 mmol/L 2-11 49 Glucose 121 mg/dL High 70-100 50 BUN 16 mg/dL 6-24 Creatinine 1.10 mg/dL 0.50-1.40 One Over Creatinine 0.90 BUN/Creatinine Ratio 14.5 8-20 Calcium 9.3 mg/dL 8.1-9.9 51 Total Protein 6.7 GM/DL 6.2-8.1 Albumin 3.9 GM/DL 3.2-5.2 Globulin 2.8 GM/DL 2-4 Albumin/Globulin Ratio 1.4 1-3 Bilirubin Total 0.9 mg/dL 0.4-1.5 52 Alkaline Phosphatase 45 U/L 30-110 Alt (SGPT) 32 U/L 14-54 Ast (Sgot) 33 U/L 12-42 eGFR Non- 52.0 > 60 eGFR 63.0 > 60 53 Urinalysis W/Microscopic 10/19/2008 [facility] Ua Color YELLOW [address] [place] [address] [phone] Appearance-Urine CLEAR Specific [place]-Ur 1.009 Low 1.010-1.030 Esterase-Urine 1+ Abnormal Negative Nitrite NEGATIVE Negative [id number]-[id number] NEGATIVE Negative Protein-Urine NEGATIVE Negative PH-Urine 7.5 5-9 Blood-Urine NEGATIVE Negative Ketones-Urine NEGATIVE Negative Bilirubin-Ur NEGATIVE Negative Glucose-Urine NEGATIVE Negative WBC-Urine 0-2 0-5 Epith Cells-Ur OCCASIONAL Bacteria-Urine 4+ Laboratory test 10/19/2008 [facility] Urine Culture ESCHERICHIA COLI finding [address] [facility] [place] [address] [phone] Ursc-1 10/19/2008 [facility] Ampicillin <=2 S [address] [place] [address] [phone] Amikacin <=2 S Ciprofloxacin <=0.25 S Ceftriaxone <=1 S Cefazolin <=4 S Nitrofurantoin <=16 S Gentamicin <=1 S Imipenem <=1 S Levofloxacin <=0.12 S Trimeth-Sulfa <=20 S Ceftazidime <=1 S Tigecycline <=0.5 S Piperacillin/Tazobactam <=4 S CBC With 07/03/2008 [facility] White Blood 4.4 CUMM Low 4.8- 10.8 54 Electronic Diff [address] [place] [address] [phone] Red Cell Count 4.89 CUMM 4.2-5.4 Hemoglobin 13.4 g/dL 12.0-16.0 Hematocrit 39 % 35-47 Mean Corpuscular Volume 80 um3 79-97 Mean Corpuscular Hemoglob 27 pg 27-31 Mean Corpuscular HGB Cone 34 g/dL 32-36 Redcell Distribution WDTH 14 % 10.5-15 Platelet Count 215 CUMM 150-450 Mean Platelet Volume 8.8 um3 7.4-10.4 Gran % 56.2 % 38-83 Lymph % 32.8 % 25-47 Mononuclear % 6.8 % 1-9 Eosinophil % 3.1 % 0-6 Basophil % 1.1 % 0-2 Abs Lymphs 1.4 1.0-4.8 Abs Mononuclear 0.3 0-0.8 Absolute Neutrophil Count 2.5 1.5-7.7 Abs Eosinophils 0.1 0-0.6 Abs Basophils 0 0-0.2 Laboratory test 07/03/2008 [facility] TSH 2.25 MIU/ML 0.34- 5.[address] [place] [address] [phone] Lipid Panel - 07/03/2008 [facility] CPK 109 U/L 0-[address] ([place] [address] Kinase) [phone] Comp Metabolic 07/03/2008 [facility] Sodium 138 mmol/L 135- [address] [place] [address] [phone] Potassium 3.8 mmol/L 3.5-5.0 Chloride 102 mmol/L 101-111 Co2 (Carbon Dioxide) 30.0 mmol/L 22-32 Anion Gap 6.0 mmol/L 2-11 55 Glucose 111 mg/dL High 70-100 56 BUN 9 mg/dL 6-24 Creatinine 0.80 mg/dL 0.50-1.40 One Over Creatinine 1.20 BUN/Creatinine Ratio 11.3 8-20 Calcium 8.8 mg/dL 8.1-9.9 57 Total Protein 6.2 GM/DL 6.2-8.1 Albumin 3.5 GM/DL 3.2-5.2 Globulin 2.7 GM/DL 2-4 Albumin/Globulin Ratio 1.3 1-3 Bilirubin Total 0.6 mg/dL 0.4-1.5 58 Alkaline Phosphatase 47 U/L 30-110 Alt (SGPT) 24 U/L 14-54 Ast (Sgot) 23 U/L 12-42 Lipid Profile 07/03/2008 [facility] Triglyceride 148 mg/dL 40 -200 (Trig/Chol/HDL) [address] [place] [address] [phone] Cholesterol 159 mg/dL Less Than 200 59 High Density Lipoprotein 40 mg/dL 40-60 60 Cholesterol/HDL Ratio 3.98 AVERAGE 1-4.44 Low Density Lipoprotein 89 mg/dL Less Than 100 61 Urine Culture & 09/18/2007 [facility] Urine Culture NF2 [address] [address] [phone] 1 AA 12/04 2 SEE RESULT BELOW Name: POOL DOZIER : [address]: Dayna Forrester MD Acct: [id number] Unit: [id number] AGE: 77 Location: PAT Re11/27/17 SEX: F Status: REG REF SPEC: [id number] VENUS: 11/27/17 [facility] DR: Dayna Forrester MD REQ: [id number] RECD: 11/27/17 STATUS: COMP _ SOURCE: URINE SPDESC: ORDERED: Urine Culture COMMENTS: JANNET 12/04 QUERIES: Urine Source: Clean Catch Procedure Result Reported Site Urine Culture Final 11/29/17- 0813 ML Organism 1 ESCHERICHIA COLI [place] Count 50-75,000 (Many) CFU/ML Organism 2 NORMAL MARCUS [place] Count >100,000 (Many) CFU/ML 1. ESCHERICHIA COLI [facility].I.C. RX --------- ------ Ampicillin <=2 S Cefazolin <=4 S Cefepime <=1 S Ceftriaxone <=1 S Ciprofloxacin <=0.25 S Gentamicin <=1 S Levofloxacin <=0.12 S Meropenem <=0.25 S Nitrofurantoin <=16 S Tetracycline <=1 S Pipercillin/Tazobactam <=4 S Trimethoprim/Sulfamethoxazole <=20 S Amoxicillin/Clavulanic Acid <=2 S Aztreonam <=1 S Contact the Microbiology Department for any additional antibiotic reporting. * ML - Main Lab . END OF REPORT DEPARTMENT OF PATHOLOGY, [address] [place] [address] Murray Abdullahi M.D. Director [facility] # [id number] 3 CALL RESULTS [phone] PLEASE CALL STAT RESULTS TO [phone] PLEASE FAX STAT RESULTS TO [phone] PLEASE CALL STAT RESULTS TO [phone] PLEASE FAX STAT RESULTS TO [phone] SEE RESULT BELOW Name: POOL DOZIER : [address]: Dayna Forrester MD Acct: [id number] Unit: [id number] AGE: 76 Location: [facility] Re07/17/16 SEX: F Status: REG REF SPEC: [id number] VENUS: 07/17/16-1414 [facility] DR: Dayna Forrester MD REQ: [id number] RECD: 07/18/166 STATUS: COMP OTHR DR: Carmen Pressley MD _ SOURCE: URINE SPDESC: ORDERED: Urine Culture QUERIES: Urine Source: Clean Catch Procedure Result Reported Site Urine Culture Final 07/19/16- 0804 ML Mixed marcus; possible contamination. Suggest resubmission. * ML - MAIN LAB (PSC1) . END OF REPORT * ML=Testing performed at Main Lab DEPARTMENT OF PATHOLOGY, [address] [place] [address] Murray Abdullahi M.D. Director [facility] # [id number] 7 Because ethnic data is not always readily [...] 15-29 5 Kidney failure <15 (or dialysis) 8 non-fasting 9 non-fasting 10 Because ethnic data is not always readily [...] 15-29 5 Kidney failure <15 (or dialysis) 11 Unable to calculate due to low microalbumin 12 Desirable <150 Borderline high 150-199 High 200-499 Very High >500 13 Desirable <200 Borderline high 200-239 High >239 14 Low <40 Desirable: 40-60 High: >60 15 Desirable: <100 mg/dL Near Optimal: 100-129 mg/dL Borderline High: 130-159 mg/dL High: 160-189 mg/dL Very High: >189 mg/dL 16 Because ethnic data is not always readily [...] 15-29 5 Kidney failure <15 (or dialysis) 17 Because ethnic data is not always readily [...] 15-29 5 Kidney failure <15 (or dialysis) 18 Therapeutic target for the treatment of diabetes Mellitus patients is <7% HBA1C, and in selective patients <6.0%.Please refer to [place] [employer] Diabetic care guidelines for further information. 19 FASTING 20 Microalbuminuria in a random sample is defined as: Microalbumin/Creatinine ratio of 30-299 ug/mg. 21 HDL Interpretation: Undesirable: High Risk: Less than 40 mg/dL Desirable: Low Risk: Greater than 60 mg/dL 22 LDL Interpretation: Low Risk Optimal Level: LDL Less than 100 mg/dL Near or Above Optimal: LDL 100-129 mg/dL Borderline High Risk: LDL 130-159 mg/dL High Risk: LDL 160-189 mg/dL Very High Risk: LDL Greater than 189 mg/dL 23 Normal serum electrophoretic pattern. 24 Reference Range and Interpretation: TnI (ng/ml) Interpretation Less Than 0.06 ng/mL Not supportive of diagnosis of [place] 0.06 - 0.50 ng/ml Indeterminate: suggest serial studies if clinically indicated. Greater than 0.5 ng/mL Consistent with diagnosis of [place] 25 The INR(International Normalized Ratio) was adopted by the World Health Organization (WHO) in 1982 as a standardized system of reporting PT (Prothrombin Time). The Centers for Disease Control (CDC) states that reporting of PT results in INR only is the preferred method. Recommended INR for Patients on Oral Anticoagulants Prophylaxis 2.0 - 3.0 Treatment of thrombosis 2.0 - 3.0 Prevention of embolism 2.0 - 3.0 Prevention of embolism from prosthetic heart valves 2.5 - 3.5 26 Because ethnic data is not always readily [...] 15-29 5 Kidney failure <15 (or dialysis) 27 Reference Range and Interpretation: TnI (ng/ml) Interpretation Less Than 0.06 ng/mL Not supportive of diagnosis of [place] 0.06 - 0.50 ng/ml Indeterminate: suggest serial studies if clinically indicated. Greater than 0.5 ng/mL Consistent with diagnosis of [place] 28 THERAPEUTIC TARGET FOR THE TREATMENT OF DIABETES MELLITUS PATIENTS IS <7% HBA1C, AND IN SELECTIVE PATIENTS <6.0%. PLEASE REFER TO [place] DIABETIC CARE GUIDELINES FOR FURTHER INFORMATION. 29 Anion gap measurement may be of limited value in the presence of any alkalosis, especially in a combined acid base disorder. . 30 Because ethnic data is not always readily [...] 15-29 5 Kidney failure <15 (or dialysis) 31 RUN DATE: 06/09/11 [facility] NMI LIVE PAGE 1 RUN TIME: 1035 Specimen Inquiry RUN USER: INTERFACE Name: POOL DOZIER Status: REG REF Re06/07/11 Age/Sex: 71/F Unit#: [id number] Location: [facility] : 38 SPEC #: [id number] VENUS: 06/07/11 STATUS: COMP REQ #: [id number] RECD: 06/07/11 [facility] DR: Papa Dahl III, MD SOURCE: URINE ENTR: 06/07/[address]: VIVIANE: ORDERED: URINE C S QUERIES: MEDENT REQUISITION # [id number] SPECIMEN DESCRIPTION: URINE, RANDOM Procedure Result Verified Site > URINE CULTURE SENSITIVI Final 06/09/11- 1034 ML Organism 1 ESCHERICHIA COLI COLONY COUNT >100,000 ORGANISMS/ML (MANY) 1. ESCHERICHIA COLI RX M.I.C. ------ --------- AMIKACIN S <=2 LEVOFLOXACIN S <=0.12 AMPICILLIN S 8 CEFAZOLIN S <=4 CEFTRIAXONE S <=1 CIPROFLOXACIN S <=0.25 GENTAMICIN S <=1 TIGECYCLINE S <=0.5 CEFTAZIDIME S <=1 IMIPENEM S <=1 NITROFURANTOIN S <=16 TRIMETH-SULFA S <=20 *These antibiotics are not available in the [facility] Formulary. Contact the Microbiology Department for any additional antibiotic reporting. - [facility] State Permit #[id number] [address] [place] [id number] DEPARTMENT OF PATHOLOGY, [address] [place] [address] [facility] Permit #[id number] Murray Abdullahi M.D. Director Leonardo Ludwig M.D. Picking Supervisor 32 Anion gap measurement may be of limited value in the presence of any alkalosis, especially in a combined acid base disorder. . 33 A metabolite of Naproxen, O-desmethylnaproxen, has been shown to interfere with the Jendrbiggik-Eros method for measuring total bilirubin. Samples from patients who have taken Naproxen have shown spurious elevation in total bilirubin levels. 34 Because ethnic data is not always readily [...] 15-29 5 Kidney failure <15 (or dialysis) 35 Anion gap measurement may be of limited value in the presence of any alkalosis, especially in a combined acid base disorder. . 36 A metabolite of Naproxen, O-desmethylnaproxen, has been shown to interfere with the Jendrassik-Eros method for measuring total bilirubin. Samples from patients who have taken Naproxen have shown spurious elevation in total bilirubin levels. 37 Because ethnic data is not always readily [...] 15-29 5 Kidney failure <15 (or dialysis) 38 CHOLESTEROL INTERPRETATION: Desirable: Less than 200 MG/DL Borderline-High Risk: 200-239 MG/DL High-Risk: 240 MG/DL and over 39 HDL INTERPRETATION: Undesirable: High Risk: Less than 40 MG/DL Desirable: Low Risk: Greater than 60 MG/DL 40 LDL INTERPRETATION: Low Risk Optimal Level: LDL Less than 100 MG/DL Near or Above Optimal: LDL 100-129 MG/DL Borderline High Risk: LDL 130-159 MG/DL High Risk: LDL 160-189 MG/DL Very High Risk: LDL Greater than 189 MG/DL 41 SPECIMEN CONTAINS NORMAL URETHRAL OR PERINEAL MARCUS AND DOES NOT SUGGEST URINARY TRACT INFECTION 42 Anion gap measurement may be of limited value in the presence of any alkalosis, especially in a combined acid base disorder. . 43 Because ethnic data is not always readily [...] 15-29 5 Kidney failure <15 (or dialysis) 44 CHOLESTEROL INTERPRETATION: Desirable: Less than 200 MG/DL Borderline-High Risk: 200-239 MG/DL High-Risk: 240 MG/DL and over 45 HDL INTERPRETATION: Undesirable: High Risk: Less than 40 MG/DL Desirable: Low Risk: Greater than 60 MG/DL 46 LDL INTERPRETATION: Low Risk Optimal Level: LDL Less than 100 MG/DL Near or Above Optimal: LDL 100-129 MG/DL Borderline High Risk: LDL 130-159 MG/DL High Risk: LDL 160-189 MG/DL Very High Risk: LDL Greater than 189 MG/DL 47 THERAPEUTIC TARGET FOR THE TREATMENT OF DIABETES MELLITUS PATIENTS IS <7% HBA1C, AND IN SELECTIVE PATIENTS <6.0%. PLEASE REFER TO [employer] DIABETIC CARE GUIDELINES FOR FURTHER INFORMATION. 48 Less Than 1.0......Low Risk of Cardiovascular Disease 1.0-3.0............Medium Risk (<2 Fold Increase) Greater Than 3.0...High Risk (Approximately 2-Fold Increase) The above guidelines are referenced in "Markers of Inflammation and Cardiovascular Disease: Application to Clinical and Public Health Practice." A Statement for Health Professionals from the Centers for Disease Control and Prevention and the [place] [employer]. (Reference: Circulation 2003 107:499-511) SERUM LEVELS OF HIGH SENSITIVITY C-REACTIVE PROTEIN MEASURED BY THE JAELYN SPARKLE LXi 725 SYSTEM SHOULD NOT BE INTERPRETTED ABSOLUTE EVIDENCE OF THE PRESENCE OR ABSENCE OF DISEASE. A HIGH SENSITIVITY CRP VALUE SHOULD BE USED IN CONJUNCTION WITH OTHER PERTINENT CLINICAL AND DIAGNOSTIC INFORMATION. 49 Anion gap measurement may be of limited value in the presence of any alkalosis, especially in a combined acid base disorder. . 50 Note change in reference range as of 09/26/07. The change was based on recommendations from the [place] [employer]. 51 Please note change in reference range effective 07 . 52 A metabolite of Naproxen, O-desmethylnaproxen, has been shown to interfere with the Jendrassik-Deyanira method for measuring total bilirubin. Samples from patients who have taken Naproxen have shown spurious elevation in total bilirubin levels. 53 Because ethnic data is not always readily [...] 15-29 5 Kidney failure <15 (or dialysis) 54 FASTING 55 Anion gap measurement may be of limited value in the presence of any alkalosis, especially in a combined acid base disorder. . 56 Note change in reference range as of 09/26/07. The change was based on recommendations from the [place] [employer]. 57 Please note change in reference range effective 07 . 58 A metabolite of Naproxen, O-desmethylnaproxen, has been shown to interfere with the Jendrassik-Eros method for measuring total bilirubin. Samples from patients who have taken Naproxen have shown spurious elevation in total bilirubin levels. 59 CHOLESTEROL INTERPRETATION: Desirable: Less than 200 MG/DL Borderline-High Risk: 200-239 MG/DL High-Risk: 240 MG/DL and over 60 HDL INTERPRETATION: Undesirable: High Risk: Less than 40 MG/DL Desirable: Low Risk: Greater than 60 MG/DL 61 LDL INTERPRETATION: Low Risk Optimal Level: LDL Less than 100 MG/DL Near or Above Optimal: LDL 100-129 MG/DL Borderline High Risk: LDL 130-159 MG/DL High Risk: LDL 160-189 MG/DL Very High Risk: LDL Greater than 189 MG/DL 62 SPECIMEN CONTAINS NORMAL URETHRAL OR PERINEAL MARCUS AND DOES NOT SUGGEST URINARY TRACT INFECTION Procedures Date Code Description Status 01/03/2018 72581 Walking Cast Completed 11/07/2017 63976 EKG Tracing & Interpretation Completed 02/14/2017 22470 EKG Tracing & Interpretation Completed 10/04/2016 55056 Treadmill Interp/Report Only Completed 10/04/2016 58655 Stress Test Supervsn W/Out I/R Completed 09/29/2016 29835 Holter Monitor Review (24 hr)dr review & interp only Completed 09/21/2016 06892 ECG Monitor/Recording W/Visual Superimposition Completed Scanning 09/07/2016 25790 ECHO Transthoracic, Real-Time 2D With Doppler And Completed Color Flow 07/24/2016 88103 TKR Total Knee Replacement Completed 07/24/2016 82306 TKR Total Knee Replacement Completed 06/29/2016 79110 EKG Tracing & Interpretation Completed 02/04/2016 73331 Stress Test Supervsn W/Out I/R Completed 02/04/2016 99116 Treadmill Interp/Report Only Completed 02/01/2016 95628 ECHO Stress Test Incl Perf Contiuous ekg Monitoring Completed W/Phys Superv 02/01/2016 45350 ECHO Stress Test Incl Perf Contiuous ekg Monitoring Completed W/Phys Superv 01/26/2016 94603 EKG Tracing & Interpretation Completed 11/23/2015 80973 Event Monitor/Phys Review/Interp. Completed 11/04/2015 18708 ECHO Transthoracic, Real-Time 2D With Doppler And Completed Color Flow 09/28/2015 86795 EKG Tracing & Interpretation Completed 01/07/2015 16701 Treadmill Interp/Report Only Completed 01/07/2015 63781 Stress Test Supervsn W/Out I/R Completed 10/27/2014 21623 EKG Tracing & Interpretation Completed 02/10/2014 11406995 Colonoscopy Completed 12/12/2013 76568 ECHO Transthoracic, Real-Time 2D With Doppler And Completed Color Flow 11/26/2013 40781 EKG Tracing & Interpretation Completed 10/15/2013 81912 Inject/Drain Joint/Bursa Major W/O US Completed 10/15/2013 43655 Rad Exam; Knee, Ap&L Completed 08/15/2013 [id number] Mammogram Completed 05/14/2013 868042201 Bone Mineral Density Test Completed 03/10/2013 069808949 Diabetic Retinal Eye Exam Completed 03/10/2013 98795 ECHO Transthoracic, Real-Time 2D With Doppler And Completed Color Flow 02/26/2013 27412 EKG Tracing & Interpretation Completed 08/16/2012 23078 Holter Monitor Review (24 hr)dr review & interp only Completed 07/31/2012 83745 EKG Tracing & Interpretation Completed 02/01/2012 99646 EKG Tracing & Interpretation Completed 11/28/2010 60835 Holter Monitoring 24 HR New Completed 11/24/2010 44999 ECHO Transthoracic, Real-Time 2D With Doppler And Completed Color Flow 11/23/2010 71509 EKG Tracing & Interpretation Completed 10/04/2010 18479 Treadmill Interp/Report Only Completed 10/04/2010 59687 Stress Test Supervsn W/Out I/R Completed 09/08/2010 04295 EKG Tracing & Interpretation Completed 02/26/2006 74845 ECHO/Stress Completed 02/26/2006 02364 Stress Test Completed 02/26/2006 33189 Stress Test Completed 05/17/2004 99939991 Colonoscopy Completed 07/31/2003 29711 ECHO/Stress Completed 07/31/2003 04617 Stress Test Completed 07/31/2003 25258 IV Infusion For DX/Upt To 1 HR. Completed 07/31/2003 88759 Intro. Needle Or Intracath.,Vein Completed 07/28/2003 83216 EKG Tracing & Interpretation Completed Encounters Type Date Location Provider Dx Diagnosis Office Visit 06/26/2018 [facility] Nurse Visit cc I10 Essential 2:00p (primary) hypertension Office Visit 04/12/2018 [facility] Nurse Visit cc I10 Essential 10:00a (primary) hypertension Office Visit 04/02/2018 [facility] S86.919D Strain of unsp 10:45a C.MBrandi Stephens M.D. musc/tend at lower leg level, unsp leg, subs Office Visit 03/22/2018 [facility] Talat Patricio R94.5 Abnormal results 4:15p MD Favian of liver function studies K76.0 Fatty (change of) liver, not elsewhere classified E66.09 Other obesity due to excess calories E11.9 Type 2 diabetes mellitus without complications M54.5 Low back pain Office Visit 01/22/2018 8:15a [facility] S86.919D Strain of unsp [facility] Stephens musc/tend at C.M.A. lower leg level, unsp leg, subs Office Visit 01/03/2018 11:00a [facility] S86.919A Strain of unsp [facility] Stephens musc/tend at C.M.A. lower leg level, unsp leg, init Office Visit 11/12/2017 9:30a Orth[facility] Dayna Forrester, M25.552 Pain in left [facility] hip C.M.ASruthi M16.12 Unilateral primary osteoarthritis, left hip Office Visit 11/07/2017 4:20p [facility] Qutaybnaina S. E66.9 Obesity, Cardiology Jesus Davis unspecified I34.0 Nonrheumatic mitral (valve) insufficiency E78.2 Mixed hyperlipidemia I10 Essential (primary) hypertension G47.33 Obstructive sleep apnea (adult) (pediatric) R94.31 Abnormal electrocardiogram [ECG] [EKG] Office Visit 02/14/2017 4:00p [facility] Danielletagwendolyn S. I10 Essential Jesus Davis (primary) hypertension G47.33 Obstructive sleep apnea (adult) (pediatric) E78.2 Mixed hyperlipidemia E66.9 Obesity, unspecified I34.0 Nonrheumatic mitral (valve) insufficiency Office Visit 12/18/2016 1:30p [facility] Dayna Forrester, M25.561 Pain in right Of C.M.A. M.D. knee Z96.651 Presence of right artificial knee joint Z47.1 Aftercare following joint replacement surgery Office Visit 09/07/2016 1:40p [facility] Qutaybnaina S. R06.02 Shortness of Jesus Davis breath G47.33 Obstructive sleep apnea (adult) (pediatric) I10 Essential (primary) hypertension E78.2 Mixed hyperlipidemia R42 Dizziness and giddiness Office 07/27/2016 [facility] Rigo G47.33 Obstructive Visit 1:21p sandra Diamond PA sleep apnea Hospitalists (adult) (pediatric) I47.1 Supraventricular tachycardia Z96.651 Presence of right artificial knee joint I10 Essential (primary) hypertension Office 07/26/2016 [facility] Rigo G47.33 Obstructive Visit 1:21p Assoc,ANGELITO Pemberton sleep apnea Hospitalists (adult) (pediatric) I47.1 Supraventricular tachycardia Z96.651 Presence of right artificial knee joint I10 Essential (primary) hypertension Office 07/25/2016 [facility] G47.33 Obstructive Visit 1:20p Assvickey,ANGELITO Pemberton sleep apnea Hospitalists (adult) (pediatric) I47.1 Supraventricular tachycardia Z96.651 Presence of right artificial knee joint I10 Essential (primary) hypertension Office 07/24/2016 [facility] G47.33 Obstructive Visit 1:19p Assoc,ANGELITO Pemberton sleep apnea Hospitalists (adult) (pediatric) I47.1 Supraventricular tachycardia I10 Essential (primary) hypertension Z96.651 Presence of right artificial knee joint Office Visit 06/29/2016 [facility] Neo Chowdary E78.2 Mixed 11:20a Cardiology Jesus Davis hyperlipidemia I34.0 Nonrheumatic mitral (valve) insufficiency G47.33 Obstructive sleep apnea (adult) (pediatric) E66.9 Obesity, unspecified I10 Essential (primary) hypertension Z01.810 Encounter for preprocedural cardiovascular examination M17.0 Bilateral primary osteoarthritis of knee M25.561 Pain in right knee R94.31 Abnormal electrocardiogram [ECG] [EKG] Office Visit 06/19/2016 10:00a [facility] Dayna Forrester, M25.561 Pain in right Of C.M.A. M.D. knee M25.562 Pain in left knee M25.462 Effusion, left knee M25.461 Effusion, right knee M17.0 Bilateral primary osteoarthritis of knee M25.552 Pain in left hip M16.12 Unilateral primary osteoarthritis, left hip Office Visit 01/26/2016 11:30a [facility] ANGELITO Gardner R00.2 Palpitations I47.1 Supraventricular tachycardia R07.9 Chest pain, unspecified R06.02 Shortness of breath I10 Essential (primary) hypertension Office Visit 11/08/2015 3:30p [facility] Isha Rivers, R06.02 Shortness of PA breath I10 Essential (primary) hypertension E66.01 Morbid (severe) obesity due to excess calories G47.33 Obstructive sleep apnea (adult) (pediatric) R00.2 Palpitations Office Visit 09/28/2015 2:40p [facility] Neo S. I10 Jean Claude Davis M.D. (primary) hypertension R94.31 Abnormal electrocardiogram [ECG] [EKG] I34.0 Nonrheumatic mitral (valve) insufficiency R06.02 Shortness of breath E78.2 Mixed hyperlipidemia Office Visit 12/07/2014 [facility] Dayna M17.11 Unilateral primary 10:00a [facility] Forrester osteoarthritis, right C.M.A. knee M25.561 Pain in right knee M25.461 Effusion, right knee Office Visit 10/27/2014 4:00p [facility] Nichole Chowdary I10 Essential Jesus Davis (primary) hypertension R94.31 Abnormal electrocardiogram [ECG] [EKG] I34.0 Nonrheumatic mitral (valve) insufficiency Office Visit 07/06/2014 Neurosurgery Terrence Gutiérrez, 724.03 Spinal Stenosis , 11:00a Services Of Catr[place] Lumbar Region W/ Neurogenic Claudication Office Visit 06/08/2014 Neurosurgery Terrence Gutiérrez 724.03 Spinal Stenosis , 10:45a [facility] Catracho [place] Lumbar Region W/ Neurogenic Claudication Office Visit 03/04/2014 [facility] ANGELITO Gardner 786.05 Shortness Of 2:30p Breath 401.1 Hypertension Benign 327.23 Obstructive Sleep Apnea Adult & Pediatric 424.0 Mitral Valve Disorder Office Visit 01/08/2014 1:00p [facility] Isha Rivers, 401.1 Hypertension Benign Of [facility] ANGELITO 327.23 Obstructive Sleep Apnea Adult & Pediatric 785.1 Palpitations 786.05 Shortness Of Breath Office Visit 11/26/2013 3:20p [facility] Neo S. 250.00 Diabetes Cardiology Jesus Davis Mellitus W/O Compl Type II Or Unspec Controlled 327.23 Obstructive Sleep Apnea Adult & Pediatric 401.1 Hypertension Benign 272.4 Hyperlipidemia Other Unspec 794.31 Electrocardiogram (ECG) (EKG) Abnormal 786.05 Shortness Of Breath 424.0 Mitral Valve Disorder 397.0 Tricuspid Valve Disease Office Visit 10/15/2013 2:15p Orth[facility] Dayna 715.36 Osteoarthrosis [facility] Forrester Not Spec C.M.A. Prime Or 2Ndy Lower Leg 844.8 Sprains & Strains Knee & Leg Other Spec Sites Office Visit 05/07/2013 2:00p [facility] Internal Анна Gallego, 366.9 Cataract Unspec Medicine - Ccmob M.D. 250.00 Diabetes Mellitus W/O Compl Type II Or Unspec Controlled 786.05 Shortness Of Breath 715.09 Osteoarthrosis Generalized Multiple Sites 327.23 Obstructive Sleep Apnea Adult & Pediatric 627.9 Menopausal & Postmenopausal Disorder Unspec V03.82 Streptococcus Pneumoniae Vaccination Spec Other Office Visit 03/07/2013 2:40p [facility] Internal Анна Gallego, 244.9 Hypothyroidism Other Medicine - M.D. Unspec Ccmob 250.00 Diabetes Mellitus W/O Compl Type II Or Unspec Controlled 786.05 Shortness Of Breath 719.46 Pain Joint Lower Leg Office Visit 02/26/2013 2:20p [facility] Qutaybeh S. 785.1 Palpitations Jesus Davis 401.1 Hypertension Benign 272.4 Hyperlipidemia Other Unspec 278.01 Obesity Morbid 786.05 Shortness Of Breath 424.0 Mitral Valve Disorder 397.0 Tricuspid Valve Disease Office Visit 09/04/2012 3:40p [facility] Internal Анна Gallego, 244.9 Hypothyroidism Other Medicine - M.D. Unspec Ccmob 790.21 Impaired Fasting Glucose Office Visit 07/31/2012 4:00p [facility] Internal Анна Gallego, 250.00 Diabetes Mellitus Medicine - Ccmob M.D. W/O Compl Type II Or Unspec Controlled 785.1 Palpitations 244.9 Hypothyroidism Other Unspec 790.21 Impaired Fasting Glucose 272.4 Hyperlipidemia Other Unspec 782.0 Skin Sensation Disturbance 709.9 Skin & Subcutaneous Tissue Disorders Unspec Office Visit 02/27/2012 10:40a [facility] Qutaybeh S. 786.59 Pain Chest Jesus Davis Other 401.1 Hypertension Benign 278.01 Obesity Morbid 250.00 Diabetes Mellitus W/O Compl Type II Or Unspec Controlled 244.9 Hypothyroidism Other Unspec Office Visit 02/01/2012 4:00p [facility] Internal Zoila Correa, 786.59 Pain Chest Medicine - Ccmob N.P. Other Office Visit 06/27/2011 4:00p [facility] Internal Papa Dahl, 786.59 Pain Chest [facility] Jesus Other 724.2 Lumbago 401.1 Hypertension Benign 790.21 Impaired Fasting Glucose Office Visit 11/23/2010 2:40p [facility]. 786.50 Pain Chest Jesus Davis Unspec 794.31 Electrocardiogram (ECG) (EKG) Abnormal 401.1 Hypertension Benign 785.1 Palpitations Office Visit 10/26/2010 3:00p DO Not Use Placement Interviewer AT Papa Dahl, 724.2 [facility] 786.50 Pain Chest Unspec Office Visit 09/08/2010 2:40p DO Not Use Placement Interviewer Papa Ndiaye 786.50 Pain Chest Unspec AT Crossvillerima Dahl M.D. Office Visit 08/17/2010 2:20p DO Not Use Placement Interviewer Kj 789.03 Pain Abdominal AT [facility], Right Lower M.DSruthi Quadrant Office Visit 12/20/2009 4:00p DO Not Use Placement Interviewer Papa Ndiaye 401.9 Hypertension Unspec AT Romeo Dahl M.D. 724.2 Lumbago 272.4 Hyperlipidemia Other Unspec 244.9 Hypothyroidism Other Unspec 753.19 Cystic Kidney Disease Other Spec 790.21 Impaired Fasting Glucose Office Visit 05/31/2009 3:00p DO Not Use Placement Interviewer Papa Ndiaye 401.9 Hypertension Unspec AT Crossvillerima Dahl M.D. 244.9 Hypothyroidism Other Unspec 272.4 Hyperlipidemia Other Unspec 724.2 Lumbago Office Visit 10/29/2008 3:20p DO Not Use Placement Interviewer Thananart, 788.41 Urinary AT Romeo Franco M.D. Frequency 788.1 Dysuria 389.9 Hearing Loss Unspec 753.19 Cystic Kidney Disease Other Spec Office Visit 10/19/2008 11:00a DO Not Use Placement Interviewer Nurse Visit AT [facility] Office Visit 07/15/2008 8:40a DO Not Use Placement Interviewer Thananart, 401.9 Hypertension Unspec AT Romeo Franco M.D. 244.9 Hypothyroidism Other Unspec 789.64 Tenderness Abdominal Left Lower Quadrant 784.49 Other Voice And Resonance Disorders Office Visit 06/11/2008 9:40a DO Not Use Placement Interviewer Thananart, 401.9 Hypertension AT Romeo Franco M.D. Unspec 244.9 Hypothyroidism Other Unspec 780.79 Malaise And Fatigue Other 724.2 Lumbago 272.4 Hyperlipidemia Other Unspec Office Visit 09/26/2007 10:30a DO Not Use Placement Interviewer AT Joan Flynn, 724.2 Laura Walters M.D. 401.9 Hypertension Unspec 788.9 Urinary Symptoms Other Office Visit 07/28/2003 2:20p [facility] Hai Pinedo 786.59 Pain Chest Jesus Coppola Other Plan of Treatment Future Appointment(s):09/24/2018 4:00 pm - Neo Davis M.D. at [facility]07/18/2018 - Talat Ballesteros MDK76.0 Fatty (change of) liver , not elsewhere uuevrdfnrrO25.5 Abnormal results of liver function jxgswvwK13.09 Other obesity due to excess [id number] Essential (primary) czmgjpdhbaigR39.9 Type 2 diabetes mellitus without wvlvcwytfryxlD63.552 Pain in left hip
[2018-07-23 19:32] LABS: INR 1.05 (0.82-1.09)
[2018-07-23 19:40] LABS: Albumin 3.9 g/dL (3.2-5.2); Albumin/Globulin Ratio 1.2 (1-3); BUN/Creatinine Ratio 24.6 (8-20); Calcium 9.7 mg/dL (8.6-10.3); EGFR African American 55.5 (>60); EGFR Non-African American 45.9 (>60); Globulin 3.2 g/dL (2-4); Potassium 3.9 mmol/L (3.5-5.0); Total Bilirubin 0.4 mg/dL (0.2-1.0); Total Protein 7.1 g/dL (6.4-8.9)
[2018-07-23 19:41] LABS: Troponin I 0.01 ng/mL (<0.04)
[2018-07-23] MEDS: fentaNYL* 50 MCG/ML 2 ML VIAL (100 MCG VIAL) IV SLOW PU ONE ×2 (21:03→23:10)
[2018-07-23] MEDS: HYDROcodone/ACETAMIN 5-325 MG* 1 TAB PO ONE (23:10)
[2018-07-23 23:28] VITALS: BP 179/79
== END 2018-07-23 23:26 | disposition home or self-care (01) ==
LOC: ED 18:56
DX: S52.572A Other intraarticular fracture of lower end of left radius, initial encounter for closed fracture (principal); S39.012A Strain of muscle, fascia and tendon of lower back, initial encounter; E07.9 Disorder of thyroid, unspecified; E11.9 Type 2 diabetes mellitus without complications; E03.9 Hypothyroidism, unspecified; I10 Essential (primary) hypertension; Z79.82 Long term (current) use of aspirin; W19.XXXA Unspecified fall, initial encounter
CPT/HCPCS: 36415; 70450; 72125; 72131; 80053; 82550; 83605; 84484; 85025; 85610; 93005; 96374; 96375; 99283; J3010

== ENCOUNTER 2019-08-15 13:07 | Observation (INO) ==
[~2019-08-15 13:07] MED LIST changes: -Buffered Lidocaine 0.9% SYRIN* 5 ML/SYR SYRINGE INTRADERM ONE; +Buffered Lidocaine 1% SYRIN 1 ml INTRADERM ONE; -Famotidine IV* 10 MG/ML 2 ML (20 mg) IV ONE; +Lactated Ringers 1000 ml BAG 1,000 ML IV SCH; +Lidocaine 2% PF 5 ML VIAL ONE; +Midazolam 2 mg/2 ml VIAL 1 mg/ml 2 ml VIAL (2 mg) ONE; +Propofol 10 MG/ML 20 ML BTL ONE
[2019-08-15] MEDS ORDERED: ceFAZolin 2 GM PREMIX in ORs 2 GM/50 ML BAG ONE (13:15)
[2019-08-15] MEDS ORDERED: Buffered Lidocaine 1% SYRIN 1 ml INTRADERM ONE (13:16)
[2019-08-15] MEDS ORDERED: Acetaminophen IV 1 GM/100ML 100 ML ONE (13:26)
[2019-08-15] MEDS ORDERED: ROPIVACAINE 5 MG/ML 30 ML BTL (0.5%) ONE (14:14)
[2019-08-15] MEDS ORDERED: Dextrose 50% Syringe 50 ml 25 GM/50 ML SYRINGE ONE (14:20)
[2019-08-15] MEDS ORDERED: Bupivacaine 0.5% SDV PF 30ML VIAL ONE (14:36)
[2019-08-15] MEDS ORDERED: Propofol 10 MG/ML 20 ML BTL ONE (14:48)
[2019-08-15] MEDS ORDERED: Ketamine HCL 50 mg/ml 10 ml VIAL (500 MG) ONE (14:55)
[2019-08-15] MEDS ORDERED: EPHEDrine (Pressors) 50 MG/ML VIAL ONE ×3 (15:05→16:07)
[2019-08-15] MEDS ORDERED: Lidocaine 2% PF 5 ML VIAL ONE (15:05)
[2019-08-15] MEDS ORDERED: Phenylephrine 40 mcg/mL 10mL (400mcg) SYRINGE ONE (15:05)
[2019-08-15] MEDS ORDERED: Ondansetron ODT 4 mg TAB 4 MG TAB PO PRN ×2 (15:38→16:33)
[2019-08-15] MEDS ORDERED: Ondansetron 4 mg VIAL 2 MG/ML 2 ml VIAL IV PRN (15:38)
[2019-08-15] MEDS ORDERED: Lactulose 30 ml UDC PO PRN (15:38)
[2019-08-15] MEDS ORDERED: Morphine 2 MG/ML SYRINGE IV PRN (15:38)
[2019-08-15] MEDS ORDERED: diPHENhydraMINE IV 50 MG/ML 1 ml VIAL (BENADRYL) IV PRN (15:38)
[2019-08-15] MEDS ORDERED: oxyCODONE/Acetamin 5/325 mg TAB PO PRN (15:38)
[2019-08-15] MEDS ORDERED: diPHENhydraMINE 25 mg TAB PO PRN (15:38)
[2019-08-15] MEDS ORDERED: Magnesium Hydroxide LIQ 30 ML UDC PO PRN (15:38)
[2019-08-15] MEDS ORDERED: Lactated Ringers 1000 ml BAG 1,000 ML IV SCH (16:00)
[2019-08-15] MEDS ORDERED: Midazolam 2 mg/2 ml VIAL 1 mg/ml 2 ml VIAL (2 mg) ONE (16:20)
[2019-08-15] MEDS ORDERED: HYDROmorphone 1 MG/1 ML SYRINGE IV PRN (16:33)
[2019-08-15] MEDS ORDERED: Naloxone 0.4 mg VIAL 0.4 mg/ml 1 ml VIAL IV PRN (16:33)
[2019-08-15] MEDS ORDERED: oxyCODONE/Acetamin 5/325 mg TAB ONE (17:02)
[2019-08-15] MEDS ORDERED: HYDROmorphone 1 MG/1 ML SYRINGE ONE (17:31)
[2019-08-15] MEDS: CMC:Lovastatin 10 mg TAB (NF) PO SCH ×2 (22:40→22:47)
[2019-08-15] MEDS: Magnesium Hydroxide LIQ 30 ML UDC PO SCH (22:40)
[2019-08-15] MEDS: ceFAZolin 1 GM ADVAN(*) 1 GM in NS 0.9% 50 ML 50 ML IVPB SCH (22:43)
[2019-08-16] MEDS: ceFAZolin 1 GM ADVAN(*) 1 GM in NS 0.9% 50 ML 50 ML IVPB SCH (06:38)
[2019-08-16] MEDS ORDERED: DULoxetine DR 60 mg CAP PO SCH (09:00)
[2019-08-16] MEDS ORDERED: Vitamin THERAPEUTIC TAB PO SCH (09:00)
[2019-08-16] MEDS: Magnesium Hydroxide LIQ 30 ML UDC PO SCH (09:58)
[2019-08-16 10:00] LABS: Hematocrit 27 % (35-47); Hemoglobin 8.8 g/dL (12.0-16.0); Mean Platelet Volume 7.9 fL (7.4-10.4); Platelet Count 196 10^3/uL (150-450)
[2019-08-16 10:17] LABS: BUN/Creatinine Ratio 19.8 (8-20); Calcium 8.5 mg/dL (8.6-10.3); EGFR African American 49.3 (>60); EGFR Non-African American 40.8 (>60); Potassium 3.8 mmol/L (3.5-5.0)
[2019-08-16 11:49] VITALS: BP 143/62
== END 2019-08-16 13:50 | disposition home or self-care (01) ==
LOC: OR 13:07 → SSU 13:07
PROVIDERS: ADMIT Orthopaedic Surgery Adult Reconstructive Orthopaedic Surgery; ATTEND Orthopaedic Surgery Adult Reconstructive Orthopaedic Surgery

== ENCOUNTER 2022-11-12 14:31 | Observation (INO) ==
[2022-11-12 15:08] LABS: ABS Basophils 0.1 10^3/uL (0.0-0.1); ABS Eosinophils 0.2 10^3/uL (0.0-0.5); ABS Lymphocytes 1.5 10^3/uL (1.0-4.8); ABS Monocytes 0.6 10^3/uL (0.0-0.9); ABS Neutrophils 5.2 10^3/uL (1.5-7.6); ABS Nucleated RBC 0.01 10^3/ul; Eosinophil % 2.5 %; Hematocrit 43.8 % (35-45); Hemoglobin 14.9 g/dL (11.5-14.3); Lymphocyte % 19.3 %; Mean Corpuscular Hemoglobin 28.2 pg (27-33); Mean Corpuscular Volume 82.9 fL (80-97); Mean Platelet Volume 8.1 fL (7.5-11.2); Nucleated Red Blood Cells % 0.1 /100 WBC (0.0-0.4); Platelet Count 193 10^3/uL (150-450); Red Blood Count 5.28 10^6/uL (3.63-4.92); Red Cell Distribution Width 13.7 % (12-17); White Blood Count 7.5 10^3/uL (3.8-11.8)
[2022-11-12 15:30] LABS: Albumin 4.3 g/dL (3.2-5.2); Calcium 10.2 mg/dL (8.6-10.3); Potassium 3.7 mmol/L (3.5-5.0); Total Bilirubin 0.3 mg/dL (0.2-1.0)
[2022-11-12 15:36] LABS: Albumin/Globulin Ratio 1.4 (1-3); Creatinine, Serum 1.12 mg/dL (0.51-0.95); Total Protein 7.3 g/dL (6.4-8.9); eGFR CKD-EPI 48.5 (>60)
[2022-11-12 15:39] LABS: INR 1.05 (0.83-1.13)
[2022-11-12 16:31] LABS: High Sensitivity Troponin 1 Hr 8 pg/mL (<15)
[2022-11-12] MEDS ORDERED: Dextrose 50% Syringe 50 ml 25 GM/50 ML SYRINGE IV PUSH PRN (17:41)
[2022-11-12 19:01] LABS: High Sensitivity Troponin 3 Hr 9 pg/mL (<15)
[2022-11-12] MEDS: Heparin 5000 UNITS/ML 1 mL VIAL SUBCUT SCH (20:37)
[2022-11-13] MEDS: Heparin 5000 UNITS/ML 1 mL VIAL SUBCUT SCH (05:20)
[2022-11-13] MEDS ORDERED: Cholecalciferol (VIT D3) 1,000 unit TAB PO SCH (09:00)
[2022-11-13] MEDS ORDERED: MAAL SWISH SPIT SCH (10:00)
[2022-11-13] MEDS ORDERED: NYST SWISH SPIT SCH (10:00)
[2022-11-13] MEDS ORDERED: LIDO SWISH SPIT SCH (10:00)
[2022-11-13] MEDS ORDERED: [UNRECOGNIZED DRUG - OTHER] SWISH SPIT SCH (10:00)
[2022-11-13 11:40] LABS: High Sensitivity Troponin 1 Hr 7 pg/mL (<15)
[2022-11-13 11:55] VITALS: BP 126/65
== END 2022-11-13 12:55 | disposition home or self-care (01) ==
LOC: ED 14:31 → EDHOLD 14:31 → SUATTDRO 16:40 → MEDTELE 20:16
PROVIDERS: ADMIT Internal Medicine; ATTEND Hospitalist